=== PATIENT | female | born 1935 | race Caucasian/White ===

== ENCOUNTER 2017-09-15 12:40 | Inpatient (IN) | payer MEDICARE, OTHER ==
[2017-09-15] VITALS (21 sets, daily range): BP systolic 79–105; BP diastolic 27–64
[~2017-09-15] VITALS: Ht 149.9 cm; Wt 66.3 kg
[~2017-09-15 12:40] MED LIST: ALDACTONE 25MG25 MG PO; ALLOPURINOL100 M1 PO; AMIODARONE 200200 MG PO; COREG25 MG PO; FERROUS SULFAT325 M2 PO; FOLIC ACID 1MG T1 MG PO; FUROSEMIDE 20MG20 MG PO; GABAPENTIN100 M2 PO; LEVOTHYROXIN0.112 M1 PO; LIPITOR10 MG PO; METOLAZONE 2.52.5 MG PO; VITAMIN D400 I1 PO; WARFARIN SODIUM1 MG PO
[2017-09-15] MEDS ORDERED: TOPROL XL 100M100 MG PO (14:26)
[2017-09-15] MEDS ORDERED: LANOXIN0.125 MG PO (14:27)
[2017-09-15] MEDS ORDERED: PRAMIPEXOLE D0.25 MG NG (14:31)
--- NOTE | 2017-09-15 14:34 | ACUTE CARE PROGRESS NOTE (QUA) ---
Progress Notes Subjective Date 09/15/17 Time 1417 Note Admitted from [facility]. Was found on the floor after a fall. Was on the floor for greater than an hour. Dehydrated and c/o pain in back and left leg particularly. Left leg with edema and eccymosis. Hx of chronic A-fib, osteoporosis, renal insufficiency. Assessment/Plan Problem List 1. Fall with injury 2. Dehydration 3. Atrial fibrillation 4. Osteoporosis 5. Left leg pain 6. Anticoagulant long-term use 7. Cardiomyopathy 8. Renal insufficiency 9. Anemia Patient condition Guarded Plan: see orders. R/o hip fx, R/o compression fx spine. This inpt stay is expected to cross 2 MNs from start of care Yes at 1435
--- NOTE | 2017-09-15 14:34 | ACUTE CARE PROGRESS NOTE (QUA) ---
Progress Notes Subjective Date 09/15/17 Time 1417 Note Admitted from [facility]. Was found on the floor after a fall. Was on the floor for greater than an hour. Dehydrated and c/o pain in back and left leg particularly. Left leg with edema and eccymosis. Hx of chronic A-fib, osteoporosis, renal insufficiency. Assessment/Plan Problem List 1. Fall with injury 2. Dehydration 3. Atrial fibrillation 4. Osteoporosis 5. Left leg pain 6. Anticoagulant long-term use 7. Cardiomyopathy 8. Renal insufficiency 9. Anemia Patient condition Guarded Plan: see orders. R/o hip fx, R/o compression fx spine. This inpt stay is expected to cross 2 MNs from start of care Yes at 1432
[2017-09-15 14:51] LABS: LYMPH # 0.8 K/mm3 (0.7-4.5); LYMPH % 6.3 % (10-50.0)
[2017-09-15 14:54] LABS: HEMOGLOBIN 6.4 g/dL (12.2-16.2)
[2017-09-15 15:29] LABS: NEUTROPHILS 85 % (42-76)
[2017-09-15] MEDS ORDERED: SPIRONOLACTONE25 MG NG (16:50)
[2017-09-15] MEDS ORDERED: LEVOTHYROXINE0.1 M1 PO (16:50)
[2017-09-15] MEDS ORDERED: TYLENOL WITH CO1 TA1 PO (16:51)
[2017-09-15] MEDS ORDERED: LOMOTIL 0.025 M1 TAB PO (16:51)
[2017-09-15] MEDS ORDERED: NITROGLYCERIN0.4 MG SL (16:51)
[2017-09-15] MEDS ORDERED: VITAMIN D1000 IU PO (16:51)
[2017-09-15] MEDS ORDERED: METOPROLOL SUCC50 M4 PO (16:52)
[2017-09-15] MEDS ORDERED: METOLAZONE 2.52.5 MG PO (16:52)
[2017-09-15] MEDS ORDERED: GABAPENTIN 100100 MG PO (16:53)
[2017-09-15 16:54] LABS: ABO BLOOD TYPE O; ANTIHUMAN GLOB CROSSMATCH COMPAT; RH BLOOD TYPE POSITIVE
[2017-09-15 16:55] LABS: ANTIHUMAN GLOB CROSSMATCH COMPAT
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
[2017-09-15] MEDS ORDERED: GABAPENTIN100 M1 PO (17:18)
--- OUTSIDE RECORDS SUMMARY | 2017-09-15 17:26 | External Medical Summary Rpt | CCD ---
Demographics Preferred Language Niuean Marital Status Unknown Cheondoism Affiliation Unknown Race Unknown Ethnic Group Unknown Author Author , BEATRIZ DUTTA Address Unknown Phone [email or web address] Immunization Name Date Rout CVX Reac Dose Comm Prov Is Faci e tion ent ider Refu lity Give sed n Td 03-0 9 999 Hist H196 No H196 (jen 8-19 oric lt), 97 al Info adso rmat rbed ion - Sour ce Unsp ecif ied
--- OUTSIDE RECORDS SUMMARY | 2017-09-15 17:26 | External Medical Summary Rpt | CCD ---
Author Author , TRA DUTTA Address Unknown Phone [email or web address] Purpose Continuity of Care Document - 04-19-2017 through 2016 Results Labs Lab Lab Date Result Refere Interp Status Commen Order Detail nces retati t Range on Urinalysis dipstick W Reflex Microscopic panel in Urine (04-19-2017 12:04) Appeara CLOUDY CLEAR complet nce of 017 ed Urine 12:04 Bacteri 2+ O complet a 017 ed [Presen 12:04 ce] in Urine sedimen t by Light microsc opy Bilirub NEGATIV NEG complet in 017 E ed [Presen 12:04 ce] in Urine by Test strip Erythro 3+ NEG Abnorma complet cytes 017 l ed [Presen 12:04 ce] in Urine Color YELLOW YELLOW complet of 017 ed Urine 12:04 Ketones NEGATIV NEG complet 017 E ed [Presen 12:04 ce] in Urine by Automat ed test strip Mucus 2+ NEG Abnorma complet [Presen 017 l ed ce] in 12:04 Urine sedimen t by Light microsc opy Nitrite NEGATIV NEG complet 017 E ed [Presen 12:04 ce] in Urine by Test strip Erythro 20-50 0 complet cytes 017 ed [Presen 12:04 ce] in Urine sedimen t by Light microsc opy Epithel 04-19- 3-5 0#/hp complet ial 017 f - ed cells.s 12:04 5#/hp quamous f [Presen ce] in Urine sedimen t by Microsc opy high power field Urobili 0.2 NEG complet nogen 017 ed [Presen 12:04 ce] in Urine by Test strip Leukocy 05-31-2 50-100 O complet carrie 017 wbc/hpf ed [#/volu 12:04 me] in Urine
--- OUTSIDE RECORDS SUMMARY | 2017-09-15 17:26 | External Medical Summary Rpt | CCD ---
Author Author [employer] Address Unknown Phone Unavailable Purpose Continuity of Care Document - through 2016
--- OUTSIDE RECORDS SUMMARY | 2017-09-15 17:26 | External Medical Summary Rpt | CCD ---
Author Author , TRA DUTTA Address Unknown Phone Purpose Continuity of Care Document - 04-19-2017 [...]
--- OUTSIDE RECORDS SUMMARY | 2017-09-15 17:26 | External Medical Summary Rpt | CCD ---
Demographics Preferred Language Liberian Marital Status Unknown Nondenominational Affiliation Unknown Race Unknown Ethnic Group Unknown Author Author , BEATRIZ DUTTA Address Unknown Phone [email or web address] Immunization Name Date Rout CVX Reac Dose Comm Prov Is Faci e tion ent ider Refu lity Give sed n Td 03-0 9 999 Hist H196 No H196 (jen 8-19 oric lt), 97 al Info adso rmat rbed ion - Sour ce Unsp ecif ied
--- OUTSIDE RECORDS SUMMARY | 2017-09-15 17:26 | External Medical Summary Rpt ---
Author Author TRA Salinas, [employer] Organization [employer] Address Unknown Phone Unavailable Results Urinalysis dipstick W Reflex Microscopic panel in Urine Observa Value Referen Units Interpr Notes Date tion ce etation Range Appeara CLOUDY CLEAR No No No April 19 nce of informa informa informa 2017 Urine tion in tion in tion in 12:04 source source source PM data data data Bacteri 2+ O No No No April 19 a informa informa informa 2016 [Presen tion in tion in tion in 12:04 ce] in source source source PM Urine data data data sedimen t by Light microsc opy Bilirub NEGATIV NEG No No No April 19 in E informa informa informa 2016 [Presen tion in tion in tion in 12:04 ce] in source source source PM Urine data data data by Test strip Erythro 3+ NEG No Abnorma No April 19 cytes informa l informa 2016 [Presen tion in tion in 12:04 ce] in source source PM Urine data data Color YELLOW YELLOW No No No April 19 of informa informa informa 2017 Urine tion in tion in tion in 12:04 source source source PM data data data Glucose NEG No No No April 19 [Mass/vol informati informati informati 2017 ume] in on in on in on in 12:04 PM Urine by source source source Test data data data strip Ketones NEGATIV NEG mg/dL No No April 19 E informa informa 2016 [Presen tion in tion in 12:04 ce] in source source PM Urine data data by Automat ed test strip Mucus 2+ NEG No Abnorma No April 19 [Presen informa l informa 2016 ce] in tion in tion in 12:04 Urine source source PM sedimen data data t by Light microsc opy Nitrite NEGATIV NEG No No No April 19 E informa informa informa 2016 [Presen tion in tion in tion in 12:04 ce] in source source source PM Urine data data data by Test strip pH of 5.0 - 8.5 No Normal No April 19 Urine informati informati 2017 on in on in 12:04 PM source source data data Protein NEG mg/dL High No April 19 [Mass/vol informati 2017 ume] in on in 12:04 PM Urine by source Automated data test strip Erythro 20-50 0 rbc/hpf No No April 19 cytes informa informa 2017 [Presen tion in tion in 12:04 ce] in source source PM Urine data data sedimen t by Light microsc opy Specific 1.005 - No Normal No April 19 gravity 1.030 informati informati 2016 of Urine on in on in 12:04 PM source source data data Epithel 3-5 0 - 5 #/hpf No No April 19 ial informa informa 2017 cells.s tion in tion in 12:04 quamous source source PM data data [Presen ce] in Urine sedimen t by Microsc opy high power field Urobili 0.2 NEG E.U./dL No No April 19 nogen informa informa 2017 [Presen tion in tion in 12:04 ce] in source source PM Urine data data by Test strip Leukocy [50 O wbc/hpf No No April 19 carrie wbc/hpf informa informa 2016 [#/volu ; 100 tion in tion in 12:04 me] in wbc/hpf source source PM Urine ] data data Renal function 2000 panel in Serum or Plasma Observa Value Referen Units Interpr Notes Date tion ce etation Range Albumin 3.4 - 5.0 gm/dL Normal No April 19 [Mass/vol informati 2017 ume] in on in 12:04 PM Serum or source Plasma data Urea 7 - 18 mg/dL High No April 19 nitrogen informati 2016 [Mass/vol on in 12:04 PM ume] in source Serum or data Plasma Calcium 8.5 - mg/dL Normal No April 19 [Mass/vol 10.1 informati 2016 ume] in on in 12:04 PM Serum or source Plasma data Chloride 98 - 107 mmoL/L Normal No April 19 [Moles/vo informati 2017 lume] in on in 12:04 PM Serum or source Plasma data Carbon 21.0 - mmoL/L Low No April 19 dioxide, 32.0 2016 total on in 12:04 PM [Moles/vo source lume] in data Serum or Plasma Creatinin 0.55 - mg/dL High No April 19 e 1.02 inform2016 [Mass/vol on in 12:04 PM ume] in source Serum or data Plasma Estimated 59- ML/MIN Low REFERENCE April 19 RANGE: 2017 glomerula >60 12:04 PM r ML/MIN/1. filtratio 73 SQUARE n rate METERSIf (GF this patient is -A merican, then multiply theresult by 1.210. Glucose 74 - 106 mg/dL High No April 19 [Mass/vol informati 2016 ume] in on in 12:04 PM Serum or source Plasma data Potassium 3.5 - 5.1 mmoL/L Normal No April 192016 [Moles/vo on in 12:04 PM lume] in source Serum or data Plasma Sodium 136 - 145 mmoL/L Normal No April 19 [Moles/vo informati 2016 lume] in on in 12:04 PM Serum or source Plasma data Phosphate 2.4 - 4.9 mg/dL Normal No April 192016 [Moles/vo on in 12:04 PM lume] in source Unspecifi data ed specimen CBC W Auto Differential panel in Blood Observa Value Referen Units Interpr Notes Date tion ce etation Range Basophils 0 - 0.2 K/MM3 Normal No April 192016 [#/volume on in 12:04 PM ] in source Blood by data Automated count Basophils 0.1 - 2.0 % Normal No April 192016 leukocyte on in 12:04 PM s in source Blood by data Automated count Eosinophi 0.0 - 0.4 K/mm3 Normal No April 19 ls ati 2016 [#/volume on in 12:04 PM ] in source Blood by data Automated count Eosinophi 0.1 - % Normal No April 19 ls/100 12.0 inform2016 leukocyte on in 12:04 PM s in source Blood by data Automated count Granulocy 1.8 - 7.8 K/mm3 Normal No April 19 carrie 2016 [#/volume on in 12:04 PM ] in source Blood by data Automated count Granulocy 37.0 - % Normal No April 19 carrie/100 80.0 2016 leukocyte on in 12:04 PM s in source Blood by data Automated count Hematocri 37.0 - % Low No April 19 t [Volume 47.0 informati 2016 on in 12:04 PM Fraction] source of Blood data Hemoglobi 12.2 - g/dL Low No April 19 n 16.2 informati 2016 [Mass/vol on in 12:04 PM ume] in source Blood data Lymphocyt 0.7 - 4.5 K/mm3 Normal April 19 es informati 2016 [#/volume on in 12:04 PM ] in source Unspecifi data ed specimen by Automated count Lymphocyt 10 - 50.0 % Normal No April 19 es informati 2016 [#/volume on in 12:04 PM ] in source Unspecifi data ed specimen by Automated count Erythrocy 27 - 31.2 pg High No April 19 te mean 2016 corpuscul on in 12:04 PM ar source hemoglobi data n [Entitic mass] Erythrocy 31.8 - g/dl Normal April 19 te mean 35.4 2016 corpuscul on in 12:04 PM ar source hemoglobi data n concentra tion [Mass/vol ume] by Automated count Erythrocy 82.2 - fl High No April 19 te mean 97.8 informati 2016 corpuscul on in 12:04 PM ar volume source [Entitic data volume] by Automated count Monocytes 0.1 - 1.0 K/mm3 Normal No April 19 inform2016 [#/volume on in 12:04 PM ] in source Blood by data Automated count Monocytes 1.7 - 9.3 % Normal No April 19 /100 2016 leukocyte on in 12:04 PM s in source Blood by data Automated count Platelet 7.4 - fl Low April 19 mean 10.4 inform2016 volume on in 12:04 PM [Entitic source volume] data in Blood by Automated count Platelets 142 - 424 K/mm3 Normal No April 19 inform2016 [#/volume on in 12:04 PM ] in source Blood data Erythrocy 4.2 - 5.4 M/mm3 Low No April 19 carrie informati 2016 [#/volume on in 12:04 PM ] in source Amniotic data fluid Erythrocy 11.5 - % Normal April 19 te 17.5 2016 distribut on in 12:04 PM ion width source [Entitic data volume] by Automated count Leukocyte 4.8 - K/MM3 Normal No April 19 s 10.8 informati 2017 [#/volume on in 12:04 PM ] in source Blood data
--- NOTE | 2017-09-15 18:15 | RADIOLOGY REPORT PS360 ---
CHEST-PORTABLE HISTORY: Weakness and low blood pressure fell at home, dehydrated, possible hip injury ORDERING PHYSICIAN: Luis Bryant MD PATIENT AGE: 82 years COMPARISON: 01/30/2012 FINDINGS: There has been prior median sternotomy with CABG and mitral valve replacement. No evidence of CHF. There is fracture of second from from the top median sternotomy wire. The lungs are clear without infiltrates, suspicious nodules, or pleural effusions. Degenerative changes of the shoulders with severe right subacromial stenosis. IMPRESSION: 1. No acute finding. 2. Prior CABG with MVR
[2017-09-15 22:34] LABS: HEMOGLOBIN 8.4 g/dL (12.2-16.2)
[2017-09-16] VITALS (26 sets, daily range): BP systolic 89–124; BP diastolic 48–78
--- NOTE | 2017-09-16 06:45 | RADIOLOGY REPORT PS360 ---
HIP LT 2-3V W/PELVIS IF PERFOR HISTORY: Fell at home, left leg with edema, discoloration, pain ORDERING PHYSICIAN: Luis Bryant MD PATIENT AGE: 82 years COMPARISON: None FINDINGS: No obvious fracture or dislocation. There is generalized vascular calcification. There is a right femoral decompression screw with bone plate IMPRESSION: No acute finding
--- NOTE | 2017-09-16 06:47 | RADIOLOGY REPORT PS360 ---
THORACIC SPINE AP LAT-2VIEW CLINICAL INDICATION: Back pain following injury fall injury, osteoporosis, pain ORDERING PHYSICIAN: Luis Bryant MD PATIENT AGE: 82 years COMPARISON: None FINDINGS: Thoracolumbar scoliosis convex left. Multilevel degenerative disc disease of the thoracic spine. No obvious fracture or dislocation. No lytic or blastic change. IMPRESSION: Scoliosis with multilevel degenerative disc disease. No obvious acute fracture
--- NOTE | 2017-09-16 06:50 | RADIOLOGY REPORT PS360 ---
EXAM: LUMBAR SPINE-2 TO 3 VIEWS HISTORY: Pain following injury fall injury, osteoporosis, pain COMPARISON: None FINDINGS: Moderate thoracic lumbar scoliosis convex left with multilevel degenerative disc disease No fracture or dislocation. No lytic or blastic change. Degenerative disc disease from L1 S1. Minimal anterolisthesis of L5 on S1 of 4 mm. Facet arthritic changes at multiple levels. IMPRESSION: 1. No acute fracture. 2. Scoliosis with severe multilevel lumbar spondylosis
--- NOTE | 2017-09-16 06:51 | RADIOLOGY REPORT PS360 ---
ANKLE-LT-3 VIEWS HISTORY: Posttraumatic pain fall ORDERING PHYSICIAN: Luis Bryant MD PATIENT AGE: 82 years COMPARISON: None FINDINGS: No fracture or dislocation. No lytic or blastic change. There is normal mineralization.. Mild osteoarthritic changes of the ankle. Generalized vascular calcification. IMPRESSION: Osteoarthritis, no acute finding
--- NOTE | 2017-09-16 06:52 | RADIOLOGY REPORT PS360 ---
FOOT-LT-3 VIEWS HISTORY: Posttraumatic pain fall ORDERING PHYSICIAN: Luis Bryant MD PATIENT AGE: 82 years COMPARISON: None FINDINGS: Moderate hallux valgus. There is an old fracture of the mid shaft of the second metatarsal and distal shaft of the third metatarsal. There is pes planus with osteoarthritic changes of the tarsal bones. No acute fracture or dislocation. There is generalized vascular calcification. IMPRESSION: 1. No acute fracture. 2. Hallux valgus with pes planus and osteoarthritis
[2017-09-16 06:55] LABS: HEMOGLOBIN 7.3 g/dL (12.2-16.2)
[2017-09-16 06:57] LABS: LYMPH # 0.8 K/mm3 (0.7-4.5); LYMPH % 8.4 % (10-50.0)
[2017-09-16 08:47] LABS: ANTIHUMAN GLOB CROSSMATCH COMPAT
[2017-09-16 08:48] LABS: ANTIHUMAN GLOB CROSSMATCH COMPAT
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
--- NOTE | 2017-09-16 08:54 | ACUTE CARE PROGRESS NOTE (QUA) ---
Progress Notes Subjective Date 09/16/17 Time 0833 Note Rested fairly well until early this morning when started complaining of increased pain in left lower leg. Otherwise denies chest pain, SOA, nausea, abdominal pain. Her rectum prolapsed shortly after I reduced it last night. She states this has been a chronic problem for her that she has never mentioned to any doctor. Objective Findings Laboratory Tests 09/16/17 0610: Sodium 131 L, Potassium 4.6, Chloride 100, Carbon Dioxide 11 L, BUN 131 *H, Creatinine 5.2 H, Estimated Creat Clear 7 L, Estimated GFR (MDRD) 8 *L, Glucose 82, Calcium 8.3 L, Total Bilirubin 0.8, AST 49 H, ALT 24, Alkaline Phosphatase 74, Creatine Kinase 599 H, CK-MB (CK-2) Rel Index 1.3, CK and CKMB Interp 7.8 H, Troponin I 0.11 H, Total Protein 5.2 L, Albumin 2.1 L, Globulin 3.1, Albumin/Globulin Ratio 0.7 L, PT 42.8 H, INR 3.91 H, WBC 9.6, RBC 2.06 L, Hgb 7.3 *L, Hct 22.1 *L, MCV 107.3 H, RDW 25.6 *H, Plt Count 41 *L , MPV 10.3, Gran % 87.0 H, Gran # 8.4 H, Lymphocytes % 8.4 L, Monocytes % 4.5 , Eosinophils % 0.1, Basophils % 0.0 L, Lymphocytes # 0.8, Monocytes # 0.4, Eosinophils # 0.0, Basophils # 0.0, PUBS MCHC 33.1, MCH 35.5 H 09/15/17 2216: Hgb 8.4 L, Hct 25.3 L 09/15/17 1950: Misc Test Units BLOOD UNIT RELEASE 09/15/17 1435: TSH 2.40 09/15/17 1435: Creatine Kinase 1285 H, CK-MB (CK-2) Rel Index 1.0, CK and CKMB Interp 12.3 *H, Troponin I 0.19 H, MCH 39.9 H, Misc Test Units BLOOD UNIT RELEASE 09/15/17 1435: Sodium 130 L, Potassium 5.4 H, Chloride 98, Carbon Dioxide 15 L, BUN 144 *H, Creatinine 6.3 H, Estimated Creat Clear 6 L, Estimated GFR (MDRD) 6 *L, Glucose 113 H, Calcium 8.3 L, Total Bilirubin 0.7, AST 71 H, ALT 29, Alkaline Phosphatase 86, Total Protein 5.8 L, Albumin 2.7 L, Globulin 3.1, Albumin/ Globulin Ratio 0.9 L, PT 149.9 H, INR 13.52 H, WBC 13.3 H, RBC 1.60 L, Hgb 6.4 *L, Hct 19.7 *L, MCV 123.1 H, RDW 18.7 H, Plt Count 63 L, MPV 10.1, Gran % 89.8 H, Gran # 11.9 H, Total Counted 100, Lymphocytes % 6.3 L, Monocytes % 3.8, Eosinophils % 0.1, Basophils % 0.1, Neutrophils 85 H, Band Neutrophils 3, Lymphocytes (Manual) 8 L, Lymphocytes # 0.8, Monocytes (Manual) 4, Monocytes # 0.5, Eosinophils # 0.0, Basophils # 0.0, Platelet Estimate MOD DECREASE, Poikilocytosis 1+, Anisocytosis 2+, Macrocytosis 2+, PUBS MCHC 32.4, Antibody Screen NEGATIVE, Miscellaneous Test POSITIVE, Digoxin 2.35 Last VS-Temp:98.2 B/P:96/50 Pulse:92 Resp:18 SaO2:99 ROOM AIR Last weight lbs:122 oz:5 K.480 Method:Bed Scales Exam General appearance: alert, pale, uncomfortable due to pain. Eyes: anicteric ENT: dry mucous membranes Cardiovascular: regular rate & rhythm Respiratory: clear to auscultation ABD: non-distended, soft, no tenderness, few bowel sounds Extremities: marked swelling and ecchymosis of left lower leg and ankle. Xray negative Neuro: alert, oriented Reviewed: medications, vital signs, lab results, radiology report, nursing notes Assessment/Plan Problem List 1. Acute renal failure Assessment/Plan marginally improved 2. Acute blood loss anemia 3. Rhabdomyolysis Assessment/Plan CPK decreased 4. Dehydration 5. Chronic kidney disease (CKD), stage IV (severe) 6. Fall with injury 7. Supratherapeutic INR 8. Left leg pain Assessment/Plan xray negative. Concern for compartment syndrome 9. Anticoagulant long-term use 10. Cardiomyopathy 11. Rectal prolapse 12. Bladder prolapse 13. History of ASCVD 14. Hiatal hernia with gastroesophageal reflux 15. Macrocytic anemia 16. Thrombocytopenia 17. Osteoporosis 18. Intermittent atrial fibrillation Plan: H&H initially improved but has dropped again. May be equilibrating but with hx of fall and prolonged INR intitially, the concern is for possible intra- abdominal bleeding. Will obtain CT abd/pelvis and surgical consult. INR is down to 3.9. Will continue to transfuse. ALso with increasing leg pain, will consult ortho for possible compartment syndrome. Her renal function is marginally improved with fluids. WIll continue to hydrate. Insert Huff to monitor I&Os. This inpt stay is expected to cross 2 MNs from start of care Yes at 1835
--- NOTE | 2017-09-16 10:36 | RADIOLOGY REPORT PS360 ---
CT ABD PELVIS W/O CONTRAST CLINICAL INDICATION: Abdominal pain following an injury/fall, blunt trauma FALL,ANEMIA,SUPRATHEROEUTIC INR; R/O INTRABDOMINAL BLEED ORDERING PHYSICIAN: Luis Bryant MD PATIENT AGE: 82 years COMPARISON: None TECHNIQUE: Axial images obtained with sagittal and coronal reformats. PROCEDURE: Oral Contrast: None IV Contrast: None . FINDINGS: Lung base images show mild cardiomegaly with enlarged left atrium. Trace right pleural effusion. The liver, spleen, and adrenal glands are unremarkable. There is a small hiatal hernia. Gallbladder slightly distended with small stones. The pancreas has an unremarkable appearance. There is moderate bilateral hydronephrosis and hydroureter. Urinary bladder is slightly thickened with minimal stranding of the adjacent fat not cystic. No evidence of intestinal obstruction or free air. No focal inflammatory change apparent There is rectal and vaginal prolapse. There is mild thickening of the perirectal and perineal fascia. The hydronephrosis may be related to the rectal and vaginal prolapse as the ureters are dilated to the level of the prolapse. There is a right hip and with bony sideplate. Moderate lumbar scoliosis convex left. No acute fractures are evident. IMPRESSION: 1. Moderate bilateral hydronephrosis and hydroureter. 2. Rectal and vaginal prolapse. The pelvic floor is involved in the prolapse includes the distal ureters and may be the source of the hydronephrosis/ureteral obstruction. 3. No hemoperitoneum. No evidence of retrograde. No hemorrhage. No obvious hepatic or splenic hematomas. Study was performed without contrast due to patient's renal status. 4. Cholelithiasis
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
[2017-09-16] MEDS ORDERED: GABAPENTIN100 M1 PO (11:40)
--- NOTE | 2017-09-16 11:54 | PHARMACY CLINIC NOTE ---
Patient Demographics Patient Demographics Admission date: 09/15/17 Date: 09/16/17 Time: 1152 Allergies Coded Allergies: No Known Drug Allergies (04/27/16) cefdinir (09/15/17) HEIGHT- FT: 4 IN: 11.00 K.480 VTE General Information Labs: Laboratory Tests 09/16 09/15 09/15 0610 2216 1435 Coagulation PT (9.4 - 11.8 SECONDS) 42.8 H 149.9 H INR (0.9 - 1.1) 3.91 H 13.52 H Hematology Hgb (12.2 - 16.2 g/dL) 7.3 *L 8.4 L 6.4 *L Hct (37.0 - 47.0 %) 22.1 *L 25.3 L 19.7 *L Plt Count (142 - 424 K/mm3) 41 *L 63 L Disclaimer The following section includes nursing documentation that has been pulled in for pharmacy review. Patient's VTE score: 4 Patient's VTE Risk: LOW RISK Clinical trial participant? No VTE prophylaxis NQF [id number] VTE prophylaxis ordered? No (INR >13 ON ADMISSION NOT INDIC) If no, why? Tx not indicated at 1154
--- NOTE | 2017-09-16 12:41 | RADIOLOGY REPORT PS360 ---
KNEE-3 VIEWS-LT HISTORY: Posterior mag pain FALL ORDERING PHYSICIAN: Luis Bryant MD PATIENT AGE: 82 years COMPARISON: None FINDINGS: Severe tricompartmental osteoarthritic changes are present greatest at the medial compartment. No obvious fracture or dislocation. No lytic or blastic change. IMPRESSION: 1. Osteoarthritis. 2. No acute fracture
--- NOTE | 2017-09-16 12:42 | RADIOLOGY REPORT PS360 ---
LOWER LEG-LT HISTORY: Posttraumatic pain FALL ORDERING PHYSICIAN: Luis Bryant MD PATIENT AGE: 82 years COMPARISON: None FINDINGS: No fracture or dislocation. No lytic or blastic change. There is normal mineralization. Osteoarthritic changes are present at the knee. Generalized vascular calcification IMPRESSION: No acute finding
[2017-09-16 15:03] LABS: URINE BLOOD 3+ (NEG)
[2017-09-16 15:06] LABS: URINE BILIRUBIN - DIPSTICK 2+ (NEG)
--- NOTE | 2017-09-16 16:11 | RADIOLOGY REPORT PS360 ---
CT EXT.LOWER-LT-W/O CONTRAST INDICATION: PAIN SWELLING. FELL YESTERDAY=TIBIAL PLATEAU ORDERING PHYSICIAN: Luis Bryant MD PATIENT AGE: 82 years COMPARISON: Radiograph of 09/16/2017. TECHNIQUE: Axial images are obtained without contrast. Sagittal and coronal reformatted images are reviewed as well. FINDINGS: No obvious fracture or dislocation. There are severe osteoarthritic changes. There is mild inferior angulation of the medial tibial plateau however, no definite fracture is evident likely secondary to the long-standing osteoarthritic change. There is decrease in the joint space with osteosclerosis and prominent osteophytes. Chondrocalcinosis is also noted. There is a small knee joint usually and. Diffuse vascular calcification present. IMPRESSION: 1. No acute fracture. 2. Osteoarthritis with chondrocalcinosis and knee joint effusion. No evidence of hemarthrosis
[2017-09-16 16:25] LABS: HEMOGLOBIN 9.3 g/dL (12.2-16.2)
--- NOTE | 2017-09-16 16:28 | ACUTE CARE PROGRESS NOTE ---
Progress note Date: 09/16/17 Assessment: I reviewed the patient on the floor following the x-rays of her left leg and left knee and the CT scan of her left knee. Family is with the patient in the room. Patient says she has no pain in her leg now unless somebody touches it. She is not complaining of any distal tingling or numbness. According to the nursing staff, she received 1 tablet of Lortab few hours ago and did not need any IV pain medication since morning. She is not complaining of any distal tingling or numbness. Examination of her left lower extremity, there is extensive ecchymosis over the leg, ankle and foot. There is a small ulceration over the vanessa with serous discharge. There is pitting edema over the left leg, ankle and foot. The leg is warm and tender to touch. There is no induration. She has good range of active and passive toe, foot and ankle movements. No stretch pain. Distal sensation is intact to light touch. Dorsalis pedis and posterior tibial pulses not palpable in both legs. Capillary refill sluggish bilaterally. Checked with the pulse oximetry on her toes of both feet- Left side is 99% and the right side is 98%. X-rays of her left leg and left knee reviewed along with the radiologist's report. The x-rays do not show any acute bony injury. There are severe advanced tricompartmental degenerative changes in her left knee. CT scan of her left knee reviewed- again very advanced degenerative changes noted in all 3 compartments. No acute fracture, hemarthrosis or hematoma noted. Impression: 1. Acute renal failure 2. Acute blood loss anemia 3. Rhabdomyolysis 4. Dehydration 5. Chronic kidney disease (CKD), stage IV (severe) 6. Fall with injury 7. Supratherapeutic INR 8. Left leg pain 9. Anticoagulant long-term use 10. Cardiomyopathy 11. Rectal prolapse 12. Bladder prolapse 13. History of ASCVD 14. Hiatal hernia with gastroesophageal reflux 15. Macrocytic anemia 16. Thrombocytopenia 17. Osteoporosis 18. Intermittent atrial fibrillation 19. Cellulitis of leg, left 20. Degenerative arthritis of left knee Plan: Reviewed the clinical and imaging findings with the patient and her family. Continue conservative management as previously recommended. Recommend adding IV antibiotics, preferably vancomycin if medically appropriate, after consulting with Dr. Hinton. Continue as needed pain medication. Continue observation for development of compartment syndrome.
[2017-09-16 21:35] LABS: HEMOGLOBIN 9.3 g/dL (12.2-16.2)
[2017-09-17] VITALS (7 sets, daily range): BP systolic 107–118; BP diastolic 48–71
[2017-09-17 06:48] LABS: HEMOGLOBIN 9.3 g/dL (12.2-16.2)
[2017-09-17 06:51] LABS: LYMPH # 0.7 K/mm3 (0.7-4.5)
--- NOTE | 2017-09-17 08:24 | ACUTE CARE PROGRESS NOTE (QUA) ---
Progress Notes Subjective Date 09/17/17 Time 0824 Note Staff notes she seemed weaker and more confused during the night. VSS have been stable. Noted with irregularity on monitor suspicious for Vtach but nurse was in room at time the monitor alarmed and there was no changes clinically so ? artifact. Still with pain in her left leg mostly with movement. Also c/o pain in her heels and note she takes gabapentin at home. Objective Findings Laboratory Tests 09/17/17 0615: Sodium 135 L, Potassium 4.5, Chloride 105, Carbon Dioxide 14 L, BUN 110 *H, Creatinine 3.8 H, Estimated Creat Clear 11 L, Estimated GFR (MDRD) 11 *L, Glucose 89, Calcium 8.3 L, Creatine Kinase 215 H, PT 16.0 H, INR 1.48 H, WBC 7.3, RBC 2.86 L, Hgb 9.3 L, Hct 28.8 L, MCV 100.6 H, RDW 26.7 *H, Plt Count 31 *L, MPV 11.3 H, Gran % 83.2 H, Gran # 6.0, Lymphocytes % 10.0, Monocytes % 6.3, Eosinophils % 0.3, Basophils % 0.1, Lymphocytes # 0.7, Monocytes # 0.5, Eosinophils # 0.0, Basophils # 0.0, PUBS MCHC 32.3, MCH 32.4 H 09/16/17 2125: Hgb 9.3 L, Hct 28.2 L 09/16/17 1558: Hgb 9.3 L, Hct 27.8 L 09/16/17 1450: Urine Color OTHER, Urine Appearance CLOUDY, Urine pH 8.0, Ur Specific [place] 1.015, Urine Protein 2+ H, Urine Ketones TRACE H, Urine Blood 3+ H, Urine Nitrate POSITIVE H, Urine Bilirubin 2+ H, Urine Urobilinogen 1.0, Ur Leukocyte Esterase 2+ H, Urine RBC 10-20, Urine WBC 10-20, Ur Squamous Epith Cells NONE, Urine Bacteria 1+, Urine Glucose NEGATIVE 09/16/17 1257: Misc Test Units BLOOD UNIT RELEASE 09/16/17 0955: Misc Test Units BLOOD UNIT RELEASE Microbiology 09/16 1450 URINE CATH: Urine Culture - RES Last VS-Temp:98.6 B/P:111/67 Pulse:99 Resp:22 SaO2:96 ROOM AIR Last weight lbs:129 oz:2 K.57 Method:Bed Scales Exam General appearance: sleeping but arouses and answers questions. Color is better. Cardiovascular: regular rate & rhythm Respiratory: clear to auscultation ABD: non-distended, soft, mild low abdominal tenderness. Genitourinary: Huff in place. Improved UOP and not as dark Extremities: left lower with improvement in swelling. Remains tender. Reviewed: medications, vital signs, lab results, consult note, nursing notes Assessment/Plan Problem List 1. Acute renal failure 2. Acute blood loss anemia 3. Rhabdomyolysis 4. Dehydration 5. Chronic kidney disease (CKD), stage IV (severe) 6. Fall with injury 7. Supratherapeutic INR Status: Resolved 8. Left leg pain 9. Anticoagulant long-term use 10. Cardiomyopathy 11. Rectal prolapse 12. Bladder prolapse 13. History of ASCVD 14. Hiatal hernia with gastroesophageal reflux 15. Macrocytic anemia 16. Thrombocytopenia 17. Osteoporosis 18. Intermittent atrial fibrillation 19. UTI (urinary tract infection) Patient condition Guarded Plan: H&H is stable. INR in therapeutic range now. UOP and renal function improving. Will decrease IVF. Resume Digoxin. Resume Gabapentin. Start Levaqiom pending urine culture. Noted with some alteration in mental status ? pain meds vs encephalopathy. This inpt stay is expected to cross 2 MNs from start of care Yes at 0854
[2017-09-17 08:36] LABS: Iron 23 ug/dL (27-139); Iron Saturation 10 % (15-55); UIBC 207 ug/dL (118-369)
--- NOTE | 2017-09-17 09:00 | CONSULT NOTE ---
Pharmacokinetic Consult Date of consult: 09/17/17 Time of consult: 857 Referring provider: DR. CONTRERAS Reason for consult: VANCOMYCIN DOSING Allergies: Coded Allergies: No Known Drug Allergies (04/27/16) cefdinir (09/15/17) Home Medications: Reported Medications FOLIC ACID (Folic Acid) 1 MG PO DAILY Ferrous Sulfate (Ferrous Sulfate 325MG) 325 MG PO TID Atorvastatin Calcium (Lipitor 10MG) 10 MG PO QHS ALLOPURINOL (Allopurinol 100MG) 100 MG PO DAILY WARFARIN SOD (Warfarin 1MG) 2.5 MG PO DAILY DIGOXIN (Digox) 0.125 MG PO DAILY Levothyroxine Sodium (Levothyroxine 0.1MG) 0.1 MG PO DAILY Spironolactone (Spironolactone) 25 MG NG BID ACETAMINOPHEN WITH CODEINE (Tylenol With Codeine #3 Tablet) 1 TAB PO QHS CHOLECALCIFEROL (VITAMIN D3) (Vitamin D3) 1,000 IUNITS PO DAILY Metolazone (Metolazone 2.5MG) 2.5 MG PO BID Gabapentin (Gabapentin 100MG) 100 MG PO DAILY Gabapentin (Gabapentin 100MG) 200 MG PO QHS DIPHENOXYLATE HCL/ATROPINE (Lomotil 2.5-0.025 MG Tablet) 1 TAB PO QIDP PRN DIARRHEA NITROGLYCERIN (Nitrostat) 0.4 MG SL [id number] PRN CHEST PAIN PRAMIPEXOLE DIHYDROCHLORIDE MO (Pramipexole) 0.5 MG NG QHS Height (feet): 4 Height (inches): 11.00 Medical History: CAD? Yes Angina: Yes [place]: Yes Hypertension? Yes Hyperlipidemia? No CHF? Yes DVT? No PE? No COPD? No Asthma? No Anemia? Yes GERD? No Hernia? No Thyroid Problems? Yes Hypothyroidism? Yes CVA? No Seizures? No Diabetes? No UTI? No Stones? No GB Disease: No Hepatitis? No Cataracts? No Glaucoma? No MRSA? No TB? No Cancer? No More? No Additional hx: 1. Paroxysmal afib 2. Right Hip fx 3. Osteoporosis both hips Labs: Laboratory Tests 09/17/17 0615: Sodium 135 L, Potassium 4.5, Chloride 105, Carbon Dioxide 14 L, BUN 110 *H, Creatinine 3.8 H, Estimated Creat Clear 11 L, Estimated GFR (MDRD) 11 *L, Glucose 89, Calcium 8.3 L, Creatine Kinase 215 H, PT 16.0 H, INR 1.48 H, WBC 7.3, RBC 2.86 L, Hgb 9.3 L, Hct 28.8 L, MCV 100.6 H, RDW 26.7 *H, Plt Count 31 *L, MPV 11.3 H, Gran % 83.2 H, Gran # 6.0, Lymphocytes % 10.0, Monocytes % 6.3, Eosinophils % 0.3, Basophils % 0.1, Lymphocytes # 0.7, Monocytes # 0.5, Eosinophils # 0.0, Basophils # 0.0, PUBS MCHC 32.3, MCH 32.4 H 09/16/17 2125: Hgb 9.3 L, Hct 28.2 L 09/16/17 1558: Hgb 9.3 L, Hct 27.8 L 09/16/17 1450: Urine Color OTHER, Urine Appearance CLOUDY, Urine pH 8.0, Ur Specific [place] 1.015, Urine Protein 2+ H, Urine Ketones TRACE H, Urine Blood 3+ H, Urine Nitrate POSITIVE H, Urine Bilirubin 2+ H, Urine Urobilinogen 1.0, Ur Leukocyte Esterase 2+ H, Urine RBC 10-20, Urine WBC 10-20, Ur Squamous Epith Cells NONE, Urine Bacteria 1+, Urine Glucose NEGATIVE 09/16/17 1257: [facility] Test Units BLOOD UNIT RELEASE 09/16/17 0955: [facility] [place] Test Units BLOOD UNIT RELEASE Microbiology 09/16 1450 URINE CATH: Urine Culture - RES Problem List: 1. Cellulitis of leg, left Plan: BASED ON PATIENT'S FACTORS, RECOMMEND STARTING WITH VANCOMYCIN 1 GM Q72H AT THIS TIME. PATIENT'S RENAL FUNCTION WILL BE MONITORED AND VANCOMYCIN TROUGH LEVEL PRIOR TO 2ND DOSE WILL BE CHECK TO DETERMINE CLEARANCE DUE TO POOR RENAL FUNCTION. PHARMACY WILL FOLLOW DAILY AND ADJUST APPROPRIATE. GEORGE PRICED at 0900
--- NOTE | 2017-09-17 09:00 | CONSULT NOTE ---
Pharmacokinetic Consult Date of consult: 09/17/17 Time of consult: 857 Referring provider: DR. CONTRERAS Reason for consult: VANCOMYCIN DOSING Allergies: Coded Allergies: No Known Drug Allergies (04/27/16) cefdinir (09/15/17) Home Medications: Reported Medications FOLIC ACID (Folic Acid) 1 MG PO DAILY Ferrous Sulfate (Ferrous Sulfate 325MG) 325 MG PO TID Atorvastatin Calcium (Lipitor 10MG) 10 MG PO QHS ALLOPURINOL (Allopurinol 100MG) 100 MG PO DAILY WARFARIN SOD (Warfarin 1MG) 2.5 MG PO DAILY DIGOXIN (Digox) 0.125 MG PO DAILY Levothyroxine Sodium (Levothyroxine 0.1MG) 0.1 MG PO DAILY Spironolactone (Spironolactone) 25 MG NG BID ACETAMINOPHEN WITH CODEINE (Tylenol With Codeine #3 Tablet) 1 TAB PO QHS CHOLECALCIFEROL (VITAMIN D3) (Vitamin D3) 1,000 IUNITS PO DAILY Metolazone (Metolazone 2.5MG) 2.5 MG PO BID Gabapentin (Gabapentin 100MG) 100 MG PO DAILY Gabapentin (Gabapentin 100MG) 200 MG PO QHS DIPHENOXYLATE HCL/ATROPINE (Lomotil 2.5-0.025 MG Tablet) 1 TAB PO QIDP PRN DIARRHEA NITROGLYCERIN (Nitrostat) 0.4 MG SL [id number] PRN CHEST PAIN PRAMIPEXOLE DIHYDROCHLORIDE MO (Pramipexole) 0.5 MG NG QHS Height (feet): 4 Height (inches): 11.00 Medical History: CAD? Yes Angina: Yes [place]: Yes Hypertension? Yes Hyperlipidemia? No CHF? Yes DVT? No PE? No COPD? No Asthma? No Anemia? Yes GERD? No Hernia? No Thyroid Problems? Yes Hypothyroidism? Yes CVA? No Seizures? No Diabetes? No UTI? No Stones? No GB Disease: No Hepatitis? No Cataracts? No Glaucoma? No MRSA? No TB? No Cancer? No More? No Additional hx: 1. Paroxysmal afib 2. Right Hip fx 3. Osteoporosis both hips Labs: Laboratory Tests 09/17/17 0615: Sodium 135 L, Potassium 4.5, Chloride 105, Carbon Dioxide 14 L, BUN 110 *H, Creatinine 3.8 H, Estimated Creat Clear 11 L, Estimated GFR (MDRD) 11 *L, Glucose 89, Calcium 8.3 L, Creatine Kinase 215 H, PT 16.0 H, INR 1.48 H, WBC 7.3, RBC 2.86 L, Hgb 9.3 L, Hct 28.8 L, MCV 100.6 H, RDW 26.7 *H, Plt Count 31 *L, MPV 11.3 H, Gran % 83.2 H, Gran # 6.0, Lymphocytes % 10.0, Monocytes % 6.3, Eosinophils % 0.3, Basophils % 0.1, Lymphocytes # 0.7, Monocytes # 0.5, Eosinophils # 0.0, Basophils # 0.0, PUBS MCHC 32.3, MCH 32.4 H 09/16/17 2125: Hgb 9.3 L, Hct 28.2 L 09/16/17 1558: Hgb 9.3 L, Hct 27.8 L 09/16/17 1450: Urine Color OTHER, Urine Appearance CLOUDY, Urine pH 8.0, Ur Specific [place] 1.015, Urine Protein 2+ H, Urine Ketones TRACE H, Urine Blood 3+ H, Urine Nitrate POSITIVE H, Urine Bilirubin 2+ H, Urine Urobilinogen 1.0, Ur Leukocyte Esterase 2+ H, Urine RBC 10-20, Urine WBC 10-20, Ur Squamous Epith Cells NONE, Urine Bacteria 1+, Urine Glucose NEGATIVE 09/16/17 1257: [facility] Test Units BLOOD UNIT RELEASE 09/16/17 0955: [facility] [place] Test Units BLOOD UNIT RELEASE Microbiology 09/16 1450 URINE CATH: Urine Culture - RES Problem List: 1. Cellulitis of leg, left Plan: BASED ON PATIENT'S FACTORS, RECOMMEND STARTING WITH VANCOMYCIN 1 GM Q72H AT THIS TIME. PATIENT'S RENAL FUNCTION WILL BE MONITORED AND VANCOMYCIN TROUGH LEVEL PRIOR TO 2ND DOSE WILL BE CHECK TO DETERMINE CLEARANCE DUE TO POOR RENAL FUNCTION. PHARMACY WILL FOLLOW DAILY AND ADJUST APPROPRIATE. GEORGE PRICED at 0900
--- NOTE | 2017-09-17 09:25 | SURGEON PROGRESS NOTE ---
Subjective data Subjective data: Somewhat slow to respond this AM. Objective data Vitals,I&O,and Labs: Vital signs, intake and output,and available lab data for the last 24 hours is as noted below. Vital Signs Date Time Temp Pulse Resp B/P Pulse O2 O2 Flow FiO2 Ox Delivery Rate 09/17 0813 98.6 99 22 111/67 96 ROOM AIR 09/17 0358 97.5 77 18 110/65 97 ROOM AIR 09/17 0005 97.5 75 18 108/64 96 ROOM AIR 09/16 2146 97.6 56 18 112/68 98 ROOM AIR 09/16 2030 97.5 69 16 123/78 98 09/16 1936 97.5 69 16 123/78 98 ROOM AIR 09/16 1720 16 09/16 1600 97.7 74 16 97/56 09/16 1500 97.6 82 16 106/68 09/16 1440 18 09/16 1410 97.9 80 16 89/48 09/16 1355 97.4 88 16 104/51 09/16 1340 97.3 72 18 118/53 09/16 1325 97.5 76 16 123/50 09/16 1320 97.8 84 16 99/53 09/16 1315 97.6 78 16 109/52 09/16 1310 97.4 81 16 113/59 09/16 1240 97.5 65 16 105/69 09/16 1140 98.0 78 16 112/53 09/16 1105 98.0 84 16 98/53 09/16 1050 98.3 79 16 106/57 09/16 1035 97.7 78 18 108/59 09/16 1020 97.7 90 16 113/66 09/16 1015 97.9 94 16 120/73 09/16 1010 98.1 69 16 106/70 09/16 1005 98.0 76 16 124/69 09/16 1500 09/16 2300 09/17 0700 Intake Total 700 Output Total 200 2600 Balance 500 -2600 Intake, IV 700 Output, Urine 200 2600 Patient 58.57 kg Weight Laboratory Tests Test Result Date Time Chemistry Sodium (mmoL/L) 135 09/17 06 Potassium (mmoL/L) 4.5 09/17 06 Chloride (mmoL/L) 105 09/17 06 Carbon Dioxide (mmoL/L) 14 09/17 0615 BUN (mg/dL) 110 09/17 615 Creatinine (mg/dL) 3.8 09/17 615 Estimated Creat Clear (ML/MIN) 11 09/17 615 Estimated GFR (MDRD) (ML/MIN) 11 09/17 615 Glucose (mg/dL) 89 09/17 615 Calcium (mg/dL) 8.3 09/17 615 Total Bilirubin (mg/dL) 0.8 09/16 610 AST (U/L) 49 09/16 610 ALT (U/L) 24 09/16 610 Alkaline Phosphatase (U/L) 74 09/16 610 Creatine Kinase (U/L) 215 09/17 615 CK-MB (CK-2) Rel Index (U/L) 1.3 09/16 610 CK and CKMB Interp (ng/mL) 7.8 09/16 610 Troponin I (ng/mL) 0.11 09/16 610 Total Protein (gm/dL) 5.2 09/16 610 Albumin (gm/dL) 2.1 09/16 610 Globulin (gm/dL) 3.1 09/16 610 Albumin/Globulin Ratio 0.7 09/16 610 TSH (uIU/ml) 2.40 09/15 1435 Coagulation PT (SECONDS) 16.0 09/17 615 INR 1.48 09/17 615 Hematology WBC (K/MM3) 7.3 09/17 615 RBC (M/mm3) 2.86 09/17 615 Hgb (g/dL) 9.3 09/17 615 Hct (%) 28.8 09/17 615 MCV (fl) 100.6 09/17 615 RDW (%) 26.7 09/17 615 Plt Count (K/mm3) 31 09/17 615 MPV (fl) 11.3 09/17 615 Gran % (%) 83.2 09/17 615 Gran # (K/mm3) 6.0 09/17 615 Total Counted (#CELLS) 100 09/15 1435 Lymphocytes % (%) 10.0 09/17 615 Monocytes % (%) 6.3 09/17 615 Eosinophils % (%) 0.3 09/17 615 Basophils % (%) 0.1 09/17 615 Neutrophils (%) 85 09/15 143 Band Neutrophils (%) 3 09/15 1435 Lymphocytes (Manual) (%) 8 09/15 1435 Lymphocytes # (K/mm3) 0.7 09/17 615 Monocytes (Manual) (%) 4 09/15 1435 Monocytes # (K/mm3) 0.5 09/17 615 Eosinophils # (K/mm3) 0.0 09/17 615 Basophils # (K/MM3) 0.0 09/17 615 Platelet Estimate MOD DECREASE 09/15 1435 Poikilocytosis 1+ 09/15 1435 Anisocytosis 2+ 09/15 1435 Macrocytosis 2+ 09/15 1435 PUBS MCHC (g/dl) 32.3 09/17 615 Immunology Antibody Screen NEGATIVE 09/15 1435 MCH (pg) 32.4 09/17 615 Miscellaneous Miscellaneous Test POSITIVE 09/15 1435 Misc Test Units BLOOD UNIT RELEASE 09/16 1257 Toxicology Digoxin (ng/mL) 2.35 09/15 1435 Urines Urine Color OTHER 09/16 1450 Urine Appearance CLOUDY 09/16 145 Urine pH 8.0 09/16 145 Ur Specific [place] 1.015 09/16 145 Urine Protein (mg/dL) 2+ 09/16 1450 Urine Ketones (mg/dL) TRACE 09/16 1450 Urine Blood 3+ 09/16 1450 Urine Nitrate POSITIVE 09/16 1450 Urine Bilirubin 2+ 09/16 1450 Urine Urobilinogen (E.U./dL) 1.0 09/16 1450 Ur Leukocyte Esterase 2+ 09/16 1450 Urine RBC (rbc/hpf) 10-20 09/16 1450 Urine WBC (wbc/hpf) 10-20 09/16 145 Ur Squamous Epith Cells (#/hpf) NONE 09/16 1450 Urine Bacteria 1+ 09/16 145 Urine Glucose NEGATIVE 09/16 1450 Additional data: HH stable Assessment findings Assessment Exam General appearance: no acute distress Respiratory: no respiratory distress ABD: soft Patient plan Diagnoses: Anemia - stable with no sign of ongoing hemorrhage Recent fall with lower extremity soft tissue injury Supratherapeutic on Coumadin-INR now within range Renal insufficiency Severe pelvic floor prolapse (chronic) Plan: continue management as per primary service Additional data: There is no definitive sign that she has had any gastrointestinal hemorrhage. Considering her comorbid conditions, the risks of endoscopy likely outweigh the benefits. UGI/SBFT and barium enema can be considered in the future to evaluate for possible large lesion/mass. However, foregoing any procedures is also a reasonable option. at [id number]
--- NOTE | 2017-09-17 14:57 | ACUTE CARE PROGRESS NOTE ---
Progress note Date: 09/17/17 Assessment: Subjective Patient seen on the floor along with her family. Patient appears drowsy but easily arousable. Family says she has been somewhat confused today. Patient says she has no pain at rest. She was restarted on gabapentin for her bilateral foot pain. She is not complaining of any distal tingling or numbness. Objective: I reviewed her vital signs, lab results, nursing notes, medical progress notes, medication and also discussed with the nursing staff. Laboratory Tests 09/17/17 0615: Sodium 135 L, Potassium 4.5, Chloride 105, Carbon Dioxide 14 L, BUN 110 *H, Creatinine 3.8 H, Estimated Creat Clear 11 L, Estimated GFR (MDRD) 11 *L, Glucose 89, Calcium 8.3 L, Creatine Kinase 215 H, PT 16.0 H, INR 1.48 H, WBC 7.3, RBC 2.86 L, Hgb 9.3 L, Hct 28.8 L, MCV 100.6 H, RDW 26.7 *H, Plt Count 31 *L, MPV 11.3 H, Gran % 83.2 H, Gran # 6.0, Lymphocytes % 10.0, Monocytes % 6.3, Eosinophils % 0.3, Basophils % 0.1, Lymphocytes # 0.7, Monocytes # 0.5, Eosinophils # 0.0, Basophils # 0.0, PUBS MCHC 32.3, MCH 32.4 H 09/16/17 2125: Hgb 9.3 L, Hct 28.2 L 09/16/17 1558: Hgb 9.3 L, Hct 27.8 L Vital Signs Result Date Time Pulse Ox 95 09/17 1230 B/P 118/71 09/17 1230 O2 Delivery ROOM AIR 09/17 123 Temp 98.3 09/17 1230 Pulse 115 09/17 1230 Resp 24 09/17 1230 Exam General appearance: sleeping but arouses and answers questions. No acute distress. Cardiovascular: regular rate & rhythm Respiratory: clear to auscultation ABD: soft, nontender, non-distended. Genitourinary: Huff in place Extremities: On examination of her left lower extremity, there is extensive ecchymosis over the leg, ankle and foot. The swelling has improved compared to yesterday. There is a small ulceration over the vanessa with serous discharge. Pitting edema 2+ over the left leg, ankle and foot. The leg is warm and tender to touch. There is no induration. She has good range of active and passive ankle, foot and toe movements. No stretch pain. Distal sensation is intact to light touch. Dorsalis pedis and posterior tibial pulses not palpable in both legs. Capillary refill sluggish bilaterally. Impression: 1. Acute renal failure 2. Acute blood loss anemia 3. Rhabdomyolysis 4. Dehydration 5. Chronic kidney disease (CKD), stage IV (severe) 6. Fall with injury 7. Supratherapeutic INR Status: Resolved 8. Left leg pain 9. Anticoagulant long-term use 10. Cardiomyopathy 11. Rectal prolapse 12. Bladder prolapse 13. History of ASCVD 14. Hiatal hernia with gastroesophageal reflux 15. Macrocytic anemia 16. Thrombocytopenia 17. Osteoporosis 18. Intermittent atrial fibrillation 19. UTI (urinary tract infection) 20. Cellulitis of leg, left 21. Degenerative arthritis of left knee Plan: I reviewed the clinical findings and progress with the patient and her family. Continue the present conservative management with regards to her left leg. Her H&H is stable and INR is subtherapeutic now. Continue as needed pain medication. Continue observation for development of compartment syndrome. Medical management as per Dr. Hernandez team. at [phone]
[2017-09-18] VITALS (8 sets, daily range): BP systolic 102–143; BP diastolic 52–89
[2017-09-18 08:06] LABS: HEMOGLOBIN 9.4 g/dL (12.2-16.2)
[2017-09-18 08:07] LABS: LYMPH # 0.6 K/mm3 (0.7-4.5); LYMPH % 12.1 % (10-50.0)
--- NOTE | 2017-09-18 08:26 | SURGEON PROGRESS NOTE ---
Subjective data Subjective data: More alert. Objective data Vitals,I&O,and Labs: Vital signs, intake and output,and available lab data for the last 24 hours is as noted below. Vital Signs Date Time Temp Pulse Resp B/P Pulse O2 O2 Flow FiO2 Ox Delivery Rate 09/18 0736 98.2 116 20 125/81 99 ROOM AIR 09/18 0502 98.4 113 18 143/89 97 ROOM AIR 09/18 0110 97.8 101 16 143/83 98 ROOM AIR 09/18 0101 18 09/17 2100 98.4 94 18 114/62 97 09/17 2048 98.4 94 18 114/62 97 ROOM AIR 09/17 1609 99.2 95 22 107/48 96 ROOM AIR 09/17 1230 98.3 115 24 118/71 95 ROOM AIR 09/17 1148 18 09/17 0945 98.6 99 22 111/67 96 09/17 1500 09/17 2300 09/18 0700 Intake Total 2025 3556 Output Total 800 950 Balance 2025 -800 2606 Intake, IV 1906 3196 Intake, Oral 120 360 Output, Urine 800 950 Patient 58.571 kg Weight Laboratory Tests Test Result Date Time Chemistry Sodium (mmoL/L) 137 09/18 06 Potassium (mmoL/L) 4.3 09/18 06 Chloride (mmoL/L) 109 09/18 06 Carbon Dioxide (mmoL/L) 14 09/18 620 BUN (mg/dL) 76 09/18 620 Creatinine (mg/dL) 2.5 09/18 620 Estimated Creat Clear (ML/MIN) 17 09/18 620 Estimated GFR (MDRD) (ML/MIN) 19 09/18 620 Glucose (mg/dL) 95 09/18 0620 Calcium (mg/dL) 7.9 09/18 620 Iron (send out) (ug/dL) 23 09/15 1435 TIBC (ug/dL) 230 09/15 1435 % Saturation (%) 10 09/15 1435 Unsaturated IBC (ug/dL) 207 09/15 143 Total Bilirubin (mg/dL) 0.8 09/16 06 AST (U/L) 49 09/16 06 ALT (U/L) 24 09/16 06 Alkaline Phosphatase (U/L) 74 09/16 0610 Creatine Kinase (U/L) 215 09/17 615 CK-MB (CK-2) Rel Index (U/L) 1.3 09/16 610 CK and CKMB Interp (ng/mL) 7.8 09/16 610 Troponin I (ng/mL) 0.11 09/16 610 Total Protein (gm/dL) 5.2 09/16 610 Albumin (gm/dL) 2.1 09/16 610 Globulin (gm/dL) 3.1 09/16 610 Albumin/Globulin Ratio 0.7 09/16 610 TSH (uIU/ml) 2.40 09/15 1435 Coagulation PT (SECONDS) 13.3 09/18 620 INR 1.23 09/18 620 Hematology WBC (K/MM3) 5.3 09/18 620 RBC (M/mm3) 2.89 09/18 620 Hgb (g/dL) 9.4 09/18 620 Hct (%) 30.6 09/18 620 MCV (fl) 105.8 09/18 620 RDW (%) 26.6 09/18 620 Plt Count (K/mm3) 31 09/18 620 MPV (fl) 11.3 09/18 620 Gran % (%) 79.9 09/18 620 Gran # (K/mm3) 4.3 09/18 620 Total Counted (#CELLS) 100 09/15 1435 Lymphocytes % (%) 12.1 09/18 620 Monocytes % (%) 7.5 09/18 620 Eosinophils % (%) 0.4 09/18 620 Basophils % (%) 0.2 09/18 620 Neutrophils (%) 85 09/15 1435 Band Neutrophils (%) 3 09/15 1435 Lymphocytes (Manual) (%) 8 09/15 1435 Lymphocytes # (K/mm3) 0.6 09/18 620 Monocytes (Manual) (%) 4 09/15 1435 Monocytes # (K/mm3) 0.4 09/18 620 Eosinophils # (K/mm3) 0.0 09/18 620 Basophils # (K/MM3) 0.0 09/18 620 Platelet Estimate MOD DECREASE 09/15 1435 Poikilocytosis 1+ 09/15 1435 Anisocytosis 2+ 09/15 1435 Macrocytosis 2+ 09/15 1435 PUBS MCHC (g/dl) 30.6 09/18 620 Immunology Antibody Screen NEGATIVE 09/15 1435 MCH (pg) 32.4 09/18 620 Miscellaneous Miscellaneous Test POSITIVE 09/15 1435 Misc Test Units BLOOD UNIT RELEASE 09/16 1257 Toxicology Digoxin (ng/mL) 2.35 09/15 1435 Urines Urine Color OTHER 09/16 145 Urine Appearance CLOUDY 09/16 145 Urine pH 8.0 09/16 145 Ur Specific [place] 1.015 09/16 145 Urine Protein (mg/dL) 2+ 09/16 145 Urine Ketones (mg/dL) TRACE 09/16 1450 Urine Blood 3+ 09/16 145 Urine Nitrate POSITIVE 09/16 1450 Urine Bilirubin 2+ 09/16 1450 Urine Urobilinogen (E.U./dL) 1.0 09/16 1450 Ur Leukocyte Esterase 2+ 09/16 1450 Urine RBC (rbc/hpf) 10-20 09/16 145 Urine WBC (wbc/hpf) 10-20 09/16 145 Ur Squamous Epith Cells (#/hpf) NONE 09/16 1450 Urine Bacteria 1+ 09/16 145 Urine Glucose NEGATIVE 09/16 1450 Assessment findings Assessment Exam General appearance: alert Cardiovascular: regular rate & rhythm Respiratory: no respiratory distress Patient plan Diagnoses: Anemia - stable with no sign of GI loss and no sign of ongoing hemorrhage Severe chronic pelvic floor prolapse Plan: as per primary service Additional data: The patient's severe pelvic floor prolapse is chronic and does not require emergent intervention. If the patient becomes medically stable, consideration of repair at a tertiary care center is reasonable. at [phone]
--- NOTE | 2017-09-18 08:40 | ACUTE CARE PROGRESS NOTE (QUA) ---
Progress Notes Subjective Date 09/18/17 Time 0806 Note Miserable; legs hurt intermittently and hard to find comfort; describes the pain as a spasm, worse on the left; son stayed with her last night and stated changing positions helps; pain med helps very little; has had ice to left leg; eating poorly; denies nausea, CP and SOB; has not been OOB Objective Findings Laboratory Tests 09/18/17 0620: Sodium 137, Potassium 4.3, Chloride 109 H, Carbon Dioxide 14 L, BUN 76 H, Creatinine 2.5 H, Estimated Creat Clear 17 L, Estimated GFR (MDRD) 19 *L, Glucose 95, Calcium 7.9 L, PT 13.3 H, INR 1.23 H, WBC 5.3, RBC 2.89 L, Hgb 9.4 L, Hct 30.6 L, MCV 105.8 H, RDW 26.6 *H, Plt Count 31 *L, MPV 11.3 H, Gran % 79.9, Gran # 4.3, Lymphocytes % 12.1, Monocytes % 7.5, Eosinophils % 0.4, Basophils % 0.2, Lymphocytes # 0.6 L, Monocytes # 0.4, Eosinophils # 0.0, Basophils # 0.0, PUBS MCHC 30.6 L, MCH 32.4 H Vital Signs Date Time Temp Pulse Resp B/P Pulse O2 O2 Flow FiO2 Ox Delivery Rate 09/18 0736 98.2 116 20 125/81 99 ROOM AIR 09/18 0502 98.4 113 18 143/89 97 ROOM AIR 09/18 0110 97.8 101 16 143/83 98 ROOM AIR 09/18 0101 18 09/17 2100 98.4 94 18 114/62 97 09/17 2048 98.4 94 18 114/62 97 ROOM AIR 09/17 1609 99.2 95 22 107/48 96 ROOM AIR 09/17 1230 98.3 115 24 118/71 95 ROOM AIR 09/17 1148 18 09/17 0945 98.6 99 22 111/67 96 09/17 0813 98.6 99 22 111 96 ROOM AIR Current Medications Miscellaneous Information 1 EACH ONCE ONE * Hydrocodone Bitart/Acetaminophen 0 .STK-MED ONE PO (DC) Hydrocodone Bitart/Acetaminophen 0 .STK-MED ONE PO (DC) Morphine Sulfate 0 .STK-MED ONE .ROUTE (DC) Sodium Chloride 1,000 ML .STK-MED ONE IV (DC) Levofloxacin 250 MG 1100 PO Digoxin 0.125 MG DAILY PO Gabapentin 100 MG BID PO Vancomycin HCl 1,000 MG Q72H IV (CKD) Sodium Chloride 250 ML Levothyroxine Sodium 0.1 MG DAILY PO Sodium Chloride 10 ML PRN PRN IV Morphine Sulfate 2 MG Q2HP PRN IV Sodium Chloride 1,000 ML .Q10H IV Hydrocodone Bitart/Acetaminophen 1 TAB Q6HP PRN PO Influenza Virus Vaccine Quadrival 0.5 ML PRN PRN IM 09/17 1500 09/17 2300 09/18 0700 Intake Total 2025 3556 Output Total 800 950 Balance 2025 - 2606 Intake, IV 1906 3196 Intake, Oral 120 360 Output, Urine 800 950 Patient 129 lb Weight Last VS-Temp:98.2 B/P:125/81 Pulse:116 Resp:20 SaO2:99 ROOM AIR Last weight lbs:129 oz:2 K.571 Method:Bed Scales > URINE CULTURE Final 09/18/17-0620 COLONY COUNT >100,000 CFU/ml Organism 1 [facility]ENCIA RETTGERI 1. [facility]IA RETTGERI RX AB M.I.C ROUTE COST I ------ -- --------- ----- ------ AMPICILLIN R 16 AMPICILLIN/SULBACTAM R >=32 CEFAZOLIN R >=64 CEFTAZIDIME (FORTAZ) S <=1 CEFEPIME S <=1 GENTAMICIN S <=1 CEFTRIAXONE S <=1 LEVOFLOXACIN S <=0.12 NITROFURANTOIN (MACRODANTIN) R 256 PIPERACILLIN/TAZOBACTAM S <=4 TOBRAMYCIN S <=1 sensitive to Levaquin which pt is on Exam General appearance: alert, no acute distress, uncomfortable most of the time when in the room Cardiovascular: irregularly irregular Respiratory: few bibasilar crackles ABD: non-distended, soft, no tenderness, bowel sounds present Genitourinary: catheter in place, velazquez cath draining brown urine Extremities: right lower leg with edema; left lower leg with 1cm open area with dressing, ecchymosis, soft, tender where ever touched Neuro: alert, speech clear, answers questions appropriately Assessment/Plan Problem List 1. Acute renal failure 2. Acute blood loss anemia 3. Rhabdomyolysis 4. Dehydration 5. Chronic kidney disease (CKD), stage IV (severe) 6. Fall with injury 7. Supratherapeutic INR Status: Resolved 8. Left leg pain 9. Anticoagulant long-term use 10. Cardiomyopathy 11. Rectal prolapse 12. Bladder prolapse 13. History of ASCVD 14. Hiatal hernia with gastroesophageal reflux 15. Macrocytic anemia 16. Thrombocytopenia 17. Osteoporosis 18. Intermittent atrial fibrillation 19. UTI (urinary tract infection) 20. Cellulitis of leg, left 21. Degenerative arthritis of left knee 22. Pelvic floor relaxation Patient condition improved/guarded Plan: will add baclofen 5mg tid for muscle spasms; IVF was decreased with improved renal function; H&H stable This inpt stay is expected to cross 2 MNs from start of care Yes at 0843
--- NOTE | 2017-09-18 12:41 | ACUTE CARE PROGRESS NOTE ---
Progress note Date: 09/18/17 Assessment: Subjective: Patient is still complaining of pain in both lower extremities the left being worse than the right. She says she has very little pain at rest. Pain is aggravated with movements and also reports occasional spasms bilaterally. She is not complaining of any distal tingling or numbness. No history of any fevers , chills or rigors. Objective: I reviewed her vital signs, lab results, nursing notes, medical progress notes, medication and also discussed with the nursing staff. Laboratory Tests 09/18/17 0620: Sodium 137, Potassium 4.3, Chloride 109 H, Carbon Dioxide 14 L, BUN 76 H, Creatinine 2.5 H, Estimated Creat Clear 17 L, Estimated GFR (MDRD) 19 *L, Glucose 95, Calcium 7.9 L, PT 13.3 H, INR 1.23 H, WBC 5.3, RBC 2.89 L, Hgb 9.4 L, Hct 30.6 L, MCV 105.8 H, RDW 26.6 *H, Plt Count 31 *L, MPV 11.3 H, Gran % 79.9, Gran # 4.3, Lymphocytes % 12.1, Monocytes % 7.5, Eosinophils % 0.4, Basophils % 0.2, Lymphocytes # 0.6 L, Monocytes # 0.4, Eosinophils # 0.0, Basophils # 0.0, PUBS MCHC 30.6 L, MCH 32.4 H Vital Signs Result Date Time Pulse Ox 99 09/18 1143 B/P 115/64 09/18 1143 O2 Delivery ROOM AIR 09/18 1143 Temp 98.4 09/18 114 Pulse 83 09/18 1143 Resp 20 09/18 1143 Exam General appearance: Alert and oriented. No acute distress. Cardiovascular: Irregularly irregular Respiratory: clear to auscultation ABD: soft, nontender, non-distended. Genitourinary: Huff in place Extremities: On examination of her left lower extremity, there is extensive ecchymosis over the leg, ankle and foot. There is small, 1 cm ulceration over the distal anterior leg with small amount of serous discharge. The base of the ulcer looks unhealthy. There is moderate swelling and pitting edema 2+ over the left leg, ankle and foot. The leg is warm and tender to touch. There is no induration. She has good range of active and passive ankle, foot and toe movements. No stretch pain. Distal sensation is intact to light touch. Dorsalis pedis and posterior tibial pulses not palpable in both legs. Capillary refill sluggish bilaterally. She is also tender over the left leg, foot and ankle. Impression: 1. Acute renal failure 2. Acute blood loss anemia 3. Rhabdomyolysis 4. Dehydration 5. Chronic kidney disease (CKD), stage IV (severe) 6. Fall with injury 7. Supratherapeutic INR Status: Resolved 8. Left leg pain 9. Anticoagulant long-term use 10. Cardiomyopathy 11. Rectal prolapse 12. Bladder prolapse 13. History of ASCVD 14. Hiatal hernia with gastroesophageal reflux 15. Macrocytic anemia 16. Thrombocytopenia 17. Osteoporosis 18. Intermittent atrial fibrillation 19. UTI (urinary tract infection) 20. Cellulitis of leg, left 21. Degenerative arthritis of left knee 22. Pelvic floor relaxation Plan: I reviewed the clinical findings and progress with the patient and her family. As of no there is no abscess formation or evidence of compartment syndrome. Therefore, no surgical intervention is needed at this stage. Recommend continuation of the conservative management with regards to her left leg. Continue as needed pain medication. Continue observation for development of compartment syndrome. Medical management as per Dr. Bryant's team. Antibiotic Stewardship (2) Current Culture Results Microbiology 09/16 1450 URINE CATH: Urine Culture - COMP [facility]ENC[facility] RETTGERI at 0845
--- NOTE | 2017-09-18 18:05 | ACUTE CARE PROGRESS NOTE (QUA) ---
Progress Notes Subjective Date 09/18/17 Time 1803 Note Finally achieving some pain relief with Fetanyl patch. Able to eat a bit today. Objective Findings Last VS-Temp:98.5 B/P:102/70 Pulse:104 Resp:20 SaO2:99 ROOM AIR Last weight lbs:129 oz:2 K.571 Method:Bed Scales Assessment/Plan Problem List 1. Acute renal failure 2. Acute blood loss anemia 3. Rhabdomyolysis 4. Dehydration 5. Chronic kidney disease (CKD), stage IV (severe) 6. Fall with injury 7. Supratherapeutic INR Status: Resolved 8. Left leg pain 9. Anticoagulant long-term use 10. Cardiomyopathy 11. Rectal prolapse 12. Bladder prolapse 13. History of ASCVD 14. Hiatal hernia with gastroesophageal reflux 15. Macrocytic anemia 16. Thrombocytopenia 17. Osteoporosis 18. Intermittent atrial fibrillation 19. UTI (urinary tract infection) 20. Cellulitis of leg, left 21. Degenerative arthritis of left knee 22. Pelvic floor relaxation Patient condition Guarded Plan: continue current care This inpt stay is expected to cross 2 MNs from start of care Yes at 1804
[2017-09-19] VITALS (8 sets, daily range): BP systolic 96–145; BP diastolic 50–79
[2017-09-19 06:36] LABS: Folate (Folic Acid) >20.0 ng/mL (>3.0); Vitamin B12 1953 pg/mL (211-946)
[2017-09-19 07:22] LABS: HEMOGLOBIN 8.7 g/dL (12.2-16.2)
[2017-09-19 07:30] LABS: LYMPH # 0.9 K/mm3 (0.7-4.5); LYMPH % 16.4 % (10-50.0)
--- NOTE | 2017-09-19 08:06 | ACUTE CARE PROGRESS NOTE (QUA) ---
See Addendum Progress Notes Subjective Date 09/19/17 Time 0746 Note Daughter stayed with her all night-states that she slept well; Patient awakened for assessment and does not know how she feels; denies pain at present; per nursing notes: did eat some yesterday; had a hard stool; Continues with velazquez cath; IVF at 100/hour; renal function continues to improve. Objective Findings Laboratory Tests 09/19/17 0640: Sodium 139, Potassium 4.1, Chloride 112 H, Carbon Dioxide 14 L, BUN 53 H, Creatinine 1.9 H, Estimated Creat Clear 23 L, Estimated GFR (MDRD) 25 L, Glucose 87, Calcium 7.7 L, WBC 5.2, RBC 2.64 L, Hgb 8.7 L, Hct 27.3 L, MCV 103.1 H, RDW 27.1 *H, Plt Count 26 *L, MPV 9.8, Gran % 76.9, Gran # 4.0, Lymphocytes % 16.4, Monocytes % 5.6, Eosinophils % 0.9, Basophils % 0.1, Lymphocytes # 0.9, Monocytes # 0.3, Eosinophils # 0.1, Basophils # 0.0, PUBS MCHC 31.9, MCH 32.9 H Vital Signs Date Time Temp Pulse Resp B/P Pulse O2 O2 Flow FiO2 Ox Delivery Rate 09/19 0722 98.9 94 20 111/63 95 ROOM AIR 09/19 0519 20 09/19 0421 100.8 88 20 96/50 95 ROOM AIR 09/19 0020 99.5 87 18 111/76 95 ROOM AIR 09/18 2159 20 09/18 2011 98.6 72 20 106/52 97 ROOM AIR 09/18 1945 98.6 72 20 106/52 97 09/18 1539 98.5 104 20 102/70 99 ROOM AIR 09/18 1531 20 09/18 1445 20 09/18 1143 98.4 83 20 115/64 99 ROOM AIR 09/18 1057 20 09/18 0930 98.2 116 20 125/81 99 Current Medications Miscellaneous Information 1 EACH ONCE ONE * Hydrocodone Bitart/Acetaminophen 0 .STK-MED ONE PO (DC) Acetaminophen 0 .STK-MED ONE PO (DC) Hydrocodone Bitart/Acetaminophen 0 .STK-MED ONE PO (DC) Acetaminophen 0 .STK-MED ONE PO (DC) Hydrocodone Bitart/Acetaminophen 0 .STK-MED ONE PO (DC) Acetaminophen 325 MG Q8 PO (DC) Fentanyl 0 .STK-MED ONE TD (DC) Fentanyl 25 MCG Q72H TD Morphine Sulfate 0 .STK-MED ONE .ROUTE (DC) Morphine Sulfate 0 .STK-MED ONE .ROUTE (DC) Sodium Chloride 1,000 ML .STK-MED ONE IV (DC) Acetaminophen 325 MG Q8 PO Gabapentin 200 MG TID PO Hydrocodone Bitart/Acetaminophen 1 TAB Q8 PO Hydrocodone Bitart/Acetaminophen 0 .STK-MED ONE PO (DC) Baclofen 5 MG TID PO Levofloxacin 250 MG 1100 PO Digoxin 0.125 MG DAILY PO Gabapentin 100 MG BID PO (DC) Vancomycin HCl 1,000 MG Q72H IV (CKD) Sodium Chloride 250 ML Levothyroxine Sodium 0.1 MG DAILY PO Sodium Chloride 10 ML PRN PRN IV Morphine Sulfate 2 MG Q2HP PRN IV Sodium Chloride 1,000 ML .Q10H IV Hydrocodone Bitart/Acetaminophen 1 TAB Q6HP PRN PO (DC) Influenza Virus Vaccine Quadrival 0.5 ML PRN PRN IM 09/18 1500 1030 2300 10/31 0700 Intake Total 600 120 Output Total 1000 1400 Balance 600 -880 -1400 Intake, Oral 600 120 Output, Stool Output, Urine 1000 1400 Patient 133 lb Weight Last VS-Temp:98.9 B/P:111/63 Pulse:94 Resp:20 SaO2:95 ROOM AIR Last weight lbs:133 oz:2 K.384 Method:Bed Scales Exam General appearance: alert, awakened for exam; smiles and answers questions appropriately Cardiovascular: irregularly irregular Respiratory: clear to auscultation ABD: non-distended, soft, no tenderness, bowel sounds present Genitourinary: catheter in place, Urine is clearing with small blood clots Extremities: bilateral leg edema > on the left and ecchymosis; legs are soft ; Kpad on the left leg; moves feet without pain Neuro: alert Assessment/Plan Problem List 1. Acute renal failure 2. Acute blood loss anemia 3. Rhabdomyolysis 4. Dehydration 5. Chronic kidney disease (CKD), stage IV (severe) 6. Fall with injury 7. Supratherapeutic INR Status: Resolved 8. Left leg pain 9. Anticoagulant long-term use 10. Cardiomyopathy 11. Rectal prolapse 12. Bladder prolapse 13. History of ASCVD 14. Hiatal hernia with gastroesophageal reflux 15. Macrocytic anemia 16. Thrombocytopenia 17. Osteoporosis 18. Intermittent atrial fibrillation 19. UTI (urinary tract infection) 20. Cellulitis of leg, left 21. Degenerative arthritis of left knee 22. Pelvic floor relaxation Patient condition Improving Plan: continue current care, start PT as tolerated This inpt stay is expected to cross 2 MNs from start of care Yes at 0806 at 0912
--- NOTE | 2017-09-19 08:26 | SURGEON PROGRESS NOTE ---
Subjective data Subjective data: Resting. Objective data Vitals,I&O,and Labs: Vital signs, intake and output,and available lab data for the last 24 hours is as noted below. Vital Signs Date Time Temp Pulse Resp B/P Pulse O2 O2 Flow FiO2 Ox Delivery Rate 09/19 0722 98.9 94 20 111/63 95 ROOM AIR 09/19 0519 20 09/19 0421 100.8 88 20 96/50 95 ROOM AIR 09/19 0020 99.5 87 18 111/76 95 ROOM AIR 09/18 2159 20 09/18 2011 98.6 72 20 106/52 97 ROOM AIR 09/18 1945 98.6 72 20 106/52 97 09/18 1539 98.5 104 20 102/70 99 ROOM AIR 09/18 1531 20 09/18 1445 20 09/18 1143 98.4 83 20 115/64 99 ROOM AIR 09/18 1057 20 09/18 0930 98.2 116 20 125/81 99 09/18 1500 09/18 2300 09/19 0700 Intake Total 600 120 Output Total 1000 1400 Balance 600 -880 -1400 Intake, Oral 600 120 Output, Stool Output, Urine 1000 1400 Patient 60.384 kg Weight Laboratory Tests Test Result Date Time Chemistry Sodium (mmoL/L) 139 09/19 640 Potassium (mmoL/L) 4.1 09/19 640 Chloride (mmoL/L) 112 09/19 06 Carbon Dioxide (mmoL/L) 14 09/19 640 BUN (mg/dL) 53 09/19 640 Creatinine (mg/dL) 1.9 09/19 640 Estimated Creat Clear (ML/MIN) 23 09/19 640 Estimated GFR (MDRD) (ML/MIN) 25 09/19 06 Glucose (mg/dL) 87 09/19 640 Calcium (mg/dL) 7.7 09/19 640 Iron (send out) (ug/dL) 23 09/15 1435 TIBC (ug/dL) 230 09/15 1435 % Saturation (%) 10 09/15 1435 Unsaturated IBC (ug/dL) 207 09/15 1435 Total Bilirubin (mg/dL) 0.8 09/16 06 AST (U/L) 49 09/16 06 ALT (U/L) 24 09/16 06 Alkaline Phosphatase (U/L) 74 09/16 610 Creatine Kinase (U/L) 215 09/17 615 CK-MB (CK-2) Rel Index (U/L) 1.3 09/16 610 CK and CKMB Interp (ng/mL) 7.8 09/16 610 Troponin I (ng/mL) 0.11 09/16 610 Total Protein (gm/dL) 5.2 09/16 610 Albumin (gm/dL) 2.1 09/16 610 Globulin (gm/dL) 3.1 09/16 610 Albumin/Globulin Ratio 0.7 09/16 610 TSH (uIU/ml) 2.40 09/15 1435 Coagulation PT (SECONDS) 13.3 09/18 620 INR 1.23 09/18 620 Hematology WBC (K/MM3) 5.2 09/19 640 RBC (M/mm3) 2.64 09/19 640 Hgb (g/dL) 8.7 09/19 640 Hct (%) 27.3 09/19 640 MCV (fl) 103.1 09/19 640 RDW (%) 27.1 09/19 640 Plt Count (K/mm3) 26 09/19 640 MPV (fl) 9.8 09/19 640 Gran % (%) 76.9 09/19 640 Gran # (K/mm3) 4.0 09/19 640 Total Counted (#CELLS) 100 09/15 143 Lymphocytes % (%) 16.4 09/19 640 Monocytes % (%) 5.6 09/19 640 Eosinophils % (%) 0.9 09/19 640 Basophils % (%) 0.1 09/19 640 Neutrophils (%) 85 09/15 143 Band Neutrophils (%) 3 09/15 143 Lymphocytes (Manual) (%) 8 09/15 143 Lymphocytes # (K/mm3) 0.9 09/19 640 Monocytes (Manual) (%) 4 09/15 1435 Monocytes # (K/mm3) 0.3 09/19 640 Eosinophils # (K/mm3) 0.1 09/19 640 Basophils # (K/MM3) 0.0 09/19 640 Platelet Estimate MOD DECREASE 09/15 1435 Poikilocytosis 1+ 09/15 1435 Anisocytosis 2+ 09/15 1435 Macrocytosis 2+ 09/15 1435 PUBS MCHC (g/dl) 31.9 09/19 640 Immunology Antibody Screen NEGATIVE 09/15 1435 MCH (pg) 32.9 09/19 640 Miscellaneous Miscellaneous Test POSITIVE 09/15 143 Misc Test Units BLOOD UNIT RELEASE 09/16 1257 Toxicology Digoxin (ng/mL) 2.35 09/15 1435 Urines Urine Color OTHER 09/16 145 Urine Appearance CLOUDY 09/16 145 Urine pH 8.0 09/16 1450 Ur Specific [place] 1.015 09/16 145 Urine Protein (mg/dL) 2+ 09/16 145 Urine Ketones (mg/dL) TRACE 09/16 1450 Urine Blood 3+ 09/16 145 Urine Nitrate POSITIVE 09/16 145 Urine Bilirubin 2+ 09/16 145 Urine Urobilinogen (E.U./dL) 1.0 09/16 145 Ur Leukocyte Esterase 2+ 09/16 1450 Urine RBC (rbc/hpf) 10-20 09/16 1450 Urine WBC (wbc/hpf) 10-20 09/16 1450 Ur Squamous Epith Cells (#/hpf) NONE 09/16 1450 Urine Bacteria 1+ 09/16 1450 Urine Glucose NEGATIVE 09/16 1450 Assessment findings Assessment Exam General appearance: no acute distress Cardiovascular: regular rate & rhythm Respiratory: no respiratory distress Patient plan Diagnoses: anemia - slight decline in H/H today likely dilutional pelvic floor prolapse (chronic) Plan: as per primary service Additional data: possible transfusion if H/H continues to decline or if overtly symptomatic at 0826
--- NOTE | 2017-09-19 09:02 | ACUTE CARE PROGRESS NOTE ---
Progress note Date: 09/19/17 Assessment: Subjective: Patient is seen along with Dr. Bryant. Patient and her daughter both say the pain is better controlled since yesterday after starting her on fentanyl patch. She says she has very little pain at rest. Pain is aggravated with movements and pressure. She is not complaining of any distal tingling or numbness. No history of any fevers, chills or rigors. Objective: I reviewed her vital signs, lab results, nursing notes, medical progress notes, medication and also discussed with the nursing staff. Laboratory Tests 09/19/17 0640: Sodium 139, Potassium 4.1, Chloride 112 H, Carbon Dioxide 14 L, BUN 53 H, Creatinine 1.9 H, Estimated Creat Clear 23 L, Estimated GFR (MDRD) 25 L, Glucose 87, Calcium 7.7 L, WBC 5.2, RBC 2.64 L, Hgb 8.7 L, Hct 27.3 L, MCV 103.1 H, RDW 27.1 *H, Plt Count 26 *L, MPV 9.8, Gran % 76.9, Gran # 4.0, Lymphocytes % 16.4, Monocytes % 5.6, Eosinophils % 0.9, Basophils % 0.1, Lymphocytes # 0.9, Monocytes # 0.3, Eosinophils # 0.1, Basophils # 0.0, PUBS MCHC 31.9, MCH 32.9 H Vital Signs Result Date Time Pulse Ox 95 09/19 722 B/P 111/63 09/19 722 O2 Delivery ROOM AIR 09/19 722 Temp 98.9 09/19 722 Pulse 94 09/19 722 Resp 20 09/19 722 Exam General appearance: Alert and oriented. No acute distress. Cardiovascular: Irregularly irregular Respiratory: clear to auscultation ABD: soft, nontender, non-distended. Genitourinary: Huff in place Extremities: On examination of her left lower extremity, there is fading ecchymosis over the leg, ankle and foot. There is small, 1 cm ulceration over the distal anterior leg with small amount of serous discharge. The base of the ulcer looks unhealthy. There is also a second lesion next to it which is not draining. There is moderate swelling and pitting edema 2+ over the left leg, ankle and foot. The leg is warm and tender to touch. There is no induration. She has good range of active and passive ankle, foot and toe movements. No stretch pain. Distal sensation is intact to light touch. Dorsalis pedis and posterior tibial pulses not palpable in both legs. Capillary refill sluggish bilaterally. She is also tender over the left leg, foot and ankle. Impression: 1. Acute renal failure 2. Acute blood loss anemia 3. Rhabdomyolysis 4. Dehydration 5. Chronic kidney disease (CKD), stage IV (severe) 6. Fall with injury 7. Supratherapeutic INR Status: Resolved 8. Left leg pain 9. Anticoagulant long-term use 10. Cardiomyopathy 11. Rectal prolapse 12. Bladder prolapse 13. History of ASCVD 14. Hiatal hernia with gastroesophageal reflux 15. Macrocytic anemia 16. Thrombocytopenia 17. Osteoporosis 18. Intermittent atrial fibrillation 19. UTI (urinary tract infection) 20. Cellulitis of leg, left 21. Degenerative arthritis of left knee 22. Pelvic floor relaxation Plan: I reviewed the clinical findings and progress with the patient and her family. As of no there is no abscess formation or evidence of compartment syndrome. Therefore, no surgical intervention is needed at this stage. Dressings were changed and wound swab obtained for culture and sensitivity. Recommend continuation of the IV antibiotics and as needed pain medication. Continue observation for development of compartment syndrome. Recommend mobilization weightbearing as tolerated with the help of physical therapy. Medical management as per Dr. Bryant's team. at [id number]
--- NOTE | 2017-09-19 09:33 | CONSULT NOTE ---
Pharmacokinetic Consult Date of consult: 09/19/17 Time of consult: 929 Referring provider: DR. CONTRERAS Reason for consult: VANCOMYCIN TROUGH LEVEL Allergies: Coded Allergies: No Known Drug Allergies (04/27/16) cefdinir (09/15/17) Home Medications: Reported Medications FOLIC ACID (Folic Acid) 1 MG PO DAILY Ferrous Sulfate (Ferrous Sulfate 325MG) 325 MG PO TID Atorvastatin Calcium (Lipitor 10MG) 10 MG PO QHS ALLOPURINOL (Allopurinol 100MG) 100 MG PO DAILY WARFARIN SOD (Warfarin 1MG) 2.5 MG PO DAILY DIGOXIN (Digox) 0.125 MG PO DAILY Levothyroxine Sodium (Levothyroxine 0.1MG) 0.1 MG PO DAILY Spironolactone (Spironolactone) 25 MG NG BID ACETAMINOPHEN WITH CODEINE (Tylenol With Codeine #3 Tablet) 1 TAB PO QHS CHOLECALCIFEROL (VITAMIN D3) (Vitamin D3) 1,000 IUNITS PO DAILY Metolazone (Metolazone 2.5MG) 2.5 MG PO BID Gabapentin (Gabapentin 100MG) 100 MG PO DAILY Gabapentin (Gabapentin 100MG) 200 MG PO QHS DIPHENOXYLATE HCL/ATROPINE (Lomotil 2.5-0.025 MG Tablet) 1 TAB PO QIDP PRN DIARRHEA NITROGLYCERIN (Nitrostat) 0.4 MG SL [id number] PRN CHEST PAIN PRAMIPEXOLE DIHYDROCHLORIDE MO (Pramipexole) 0.5 MG NG QHS Height (feet): 4 Height (inches): 11.00 Medical History: CAD? Yes Angina: Yes MD: Yes Hypertension? Yes Hyperlipidemia? No CHF? Yes DVT? No PE? No COPD? No Asthma? No Anemia? Yes GERD? No Hernia? No Thyroid Problems? Yes Hypothyroidism? Yes CVA? No Seizures? No Diabetes? No UTI? No Stones? No GB Disease: No Hepatitis? No Cataracts? No Glaucoma? No MRSA? No TB? No Cancer? No More? No Additional hx: 1. Paroxysmal afib 2. Right Hip fx 3. Osteoporosis both hips Labs: Laboratory Tests 09/19/17 0640: Sodium 139, Potassium 4.1, Chloride 112 H, Carbon Dioxide 14 L, BUN 53 H, Creatinine 1.9 H, Estimated Creat Clear 23 L, Estimated GFR (MDRD) 25 L, Glucose 87, Calcium 7.7 L, WBC 5.2, RBC 2.64 L, Hgb 8.7 L, Hct 27.3 L, MCV 103.1 H, RDW 27.1 *H, Plt Count 26 *L, MPV 9.8, Gran % 76.9, Gran # 4.0, Lymphocytes % 16.4, Monocytes % 5.6, Eosinophils % 0.9, Basophils % 0.1, Lymphocytes # 0.9, Monocytes # 0.3, Eosinophils # 0.1, Basophils # 0.0, PUBS MCHC 31.9, MCH 32.9 H, Vancomycin Trough 6.6 L Problem List: 1. Cellulitis of leg, left Plan: PATIENT'S SRCR HAS DECREASED TO 1.9 TODAY. BASED ON PATIENT FACTORS AND VANCOMYCIN TROUGH LEVEL, RECOMMEND CHANGING INTERVAL TO VANCOMYCIN 1 GM IV Q48H. PHARMACY WILL CONTINUE TO MONITOR DAILY AND ADJUST APPROPRIATE. at 0932
--- NOTE | 2017-09-19 09:34 | ACUTE CARE PROGRESS NOTE (QUA) ---
Progress Notes Subjective Date 09/19/17 Time 0933 Assessment/Plan Problem List 1. Acute renal failure 2. Acute blood loss anemia 3. Rhabdomyolysis 4. Dehydration 5. Chronic kidney disease (CKD), stage IV (severe) 6. Fall with injury 7. Supratherapeutic INR Status: Resolved 8. Left leg pain 9. Anticoagulant long-term use 10. Cardiomyopathy 11. Rectal prolapse 12. Bladder prolapse 13. History of ASCVD 14. Hiatal hernia with gastroesophageal reflux 15. Macrocytic anemia 16. Thrombocytopenia 17. Osteoporosis 18. Intermittent atrial fibrillation 19. UTI (urinary tract infection) 20. Cellulitis of leg, left 21. Degenerative arthritis of left knee 22. Pelvic floor relaxation This inpt stay is expected to cross 2 MNs from start of care Yes Antibiotic Stewardship (2) Current Culture Results Microbiology 09/16 1450 URINE CATH: Urine Culture - COMP [facility] RETTGERI Infxn that will respond? Yes Right drug,dose,and route? Yes More targeted antbx? No at 0947
[2017-09-19 17:49] LABS: HEMOGLOBIN 8.6 g/dL (12.2-16.2)
[2017-09-19 18:33] LABS: LYMPH # 0.7 K/mm3 (0.7-4.5); LYMPH % 13.8 % (10-50.0)
[2017-09-20 04:10] VITALS: BP 128/88
[2017-09-20 07:40] VITALS: BP 134/75
--- NOTE | 2017-09-20 08:11 | ACUTE CARE PROGRESS NOTE (QUA) ---
Progress Notes Subjective Date 09/20/17 Time 0804 Note Pt finally sleeping and sleeping well this am. Family states she just went to sleep and has been c/o pain in the lower extremities off and on. According to her nurse, she is not taking her lortab as scheduled and they would like to know if it can be made prn. Objective Findings Last VS-Temp:99.6 B/P:134/75 Pulse:104 Resp:22 SaO2:98 ROOM AIR Last weight lbs:141 oz:3 K.042 Method:Bed Scales Laboratory Tests 09/19/17 1630: WBC 4.9, RBC 2.63 L, Hgb 8.6 L, Hct 27.5 L, MCV 104.4 H, RDW 27.0 *H, Plt Count 26 *L, MPV 11.7 H, Gran % 79.2, Gran # 3.9, Lymphocytes % 13.8, Monocytes % 6.0, Eosinophils % 0.8, Basophils % 0.1, Lymphocytes # 0.7, Monocytes # 0.3, Eosinophils # 0.0, Basophils # 0.0, PUBS MCHC 31.4 L, MCH 32.8 H Microbiology 09/19 0925 LEG: Wound Culture - RECD Exam General appearance: sleeping Cardiovascular: irregularly irregular Respiratory: clear to auscultation ABD: non-distended, normal bowel sounds, no rebound, soft, no tenderness, no guarding Extremities: left lower extremity with dressing in place, patient grimaces when palpated, ecchymosis still present, less edema Assessment/Plan Problem List 1. Acute renal failure 2. Acute blood loss anemia 3. Rhabdomyolysis 4. Dehydration 5. Chronic kidney disease (CKD), stage IV (severe) 6. Fall with injury 7. Supratherapeutic INR Status: Resolved 8. Left leg pain 9. Anticoagulant long-term use 10. Cardiomyopathy 11. Rectal prolapse 12. Bladder prolapse 13. History of ASCVD 14. Hiatal hernia with gastroesophageal reflux 15. Macrocytic anemia 16. Thrombocytopenia 17. Osteoporosis 18. Intermittent atrial fibrillation 19. UTI (urinary tract infection) 20. Cellulitis of leg, left 21. Degenerative arthritis of left knee 22. Pelvic floor relaxation Plan: H & H slowly decreasing, renal function improving, ran a fever this am, to work with PT, will discuss making lortab scheduled with Dr. Bryant This inpt stay is expected to cross 2 MNs from start of care Yes at 0811
--- NOTE | 2017-09-20 08:31 | SURGEON PROGRESS NOTE ---
Subjective data Subjective data: Resting. Less responsive over the last 24 hours. Objective data Vitals,I&O,and Labs: Vital signs, intake and output,and available lab data for the last 24 hours is as noted below. Vital Signs Date Time Temp Pulse Resp B/P Pulse O2 O2 Flow FiO2 Ox Delivery Rate 09/20 0740 99.6 104 22 134/75 98 ROOM AIR 09/20 0410 98.9 105 20 128/88 98 ROOM AIR 09/199 99.2 108 22 134/79 98 ROOM AIR 09/19 2006 20 09/19 1956 98.5 90 20 145/70 98 ROOM AIR 09/19 1917 98.5 90 20 145/70 98 09/19 1534 98.1 76 20 106/67 98 ROOM AIR 09/19 1027 98.9 94 20 111/63 95 09/19 1500 09/19 2300 09/20 0700 Intake Total 2320 1390 Output Total 800 1600 Balance 2320 590 -1600 Intake, IV 2320 1390 Output, Urine 800 1600 Patient 64.042 kg Weight Laboratory Tests Test Result Date Time Chemistry Sodium (mmoL/L) 139 09/19 0640 Potassium (mmoL/L) 4.1 09/19 06 Chloride (mmoL/L) 112 09/19 0640 Carbon Dioxide (mmoL/L) 14 09/19 640 BUN (mg/dL) 53 09/19 06 Creatinine (mg/dL) 1.9 09/19 06 Estimated Creat Clear (ML/MIN) 23 09/19 06 Estimated GFR (MDRD) (ML/MIN) 25 09/19 640 Glucose (mg/dL) 87 09/19 0640 Calcium (mg/dL) 7.7 09/19 0640 Iron (send out) (ug/dL) 23 09/15 1435 TIBC (ug/dL) 230 09/15 1435 % Saturation (%) 10 09/15 1435 Unsaturated IBC (ug/dL) 207 09/15 1435 Total Bilirubin (mg/dL) 0.8 09/16 06 AST (U/L) 49 09/16 0610 ALT (U/L) 24 09/16 06 Alkaline Phosphatase (U/L) 74 09/16 06 Creatine Kinase (U/L) 215 09/17 06 CK-MB (CK-2) Rel Index (U/L) 1.3 09/16 610 CK and CKMB Interp (ng/mL) 7.8 09/16 610 Troponin I (ng/mL) 0.11 09/16 610 Total Protein (gm/dL) 5.2 09/16 610 Albumin (gm/dL) 2.1 09/16 610 Globulin (gm/dL) 3.1 09/16 610 Albumin/Globulin Ratio 0.7 09/16 610 Vitamin B12 (pg/mL) 1953 09/15 143 Folate (ng/mL) >20.0 09/15 143 TSH (uIU/ml) 2.40 09/15 143 Coagulation PT (SECONDS) 13.3 09/18 620 INR 1.23 09/18 620 Hematology WBC (K/MM3) 4.9 09/19 1630 RBC (M/mm3) 2.63 09/19 1630 Hgb (g/dL) 8.6 09/19 1630 Hct (%) 27.5 09/19 1630 MCV (fl) 104.4 09/19 1630 RDW (%) 27.0 09/19 1630 Plt Count (K/mm3) 26 09/19 1630 MPV (fl) 11.7 09/19 1630 Gran % (%) 79.2 09/19 1630 Gran # (K/mm3) 3.9 09/19 1630 Total Counted (#CELLS) 100 09/15 1435 Lymphocytes % (%) 13.8 09/19 1630 Monocytes % (%) 6.0 09/19 1630 Eosinophils % (%) 0.8 09/19 1630 Basophils % (%) 0.1 09/19 1630 Neutrophils (%) 85 09/15 1435 Band Neutrophils (%) 3 09/15 1435 Lymphocytes (Manual) (%) 8 09/15 1435 Lymphocytes # (K/mm3) 0.7 09/19 1630 Monocytes (Manual) (%) 4 09/15 143 Monocytes # (K/mm3) 0.3 09/19 1630 Eosinophils # (K/mm3) 0.0 09/19 1630 Basophils # (K/MM3) 0.0 09/19 1630 Platelet Estimate MOD DECREASE 09/15 143 Poikilocytosis 1+ 09/15 143 Anisocytosis 2+ 10/27 1435 Macrocytosis 2+ 09/15 1435 PUBS MCHC (g/dl) 31.4 09/19 163 Immunology Antibody Screen NEGATIVE 09/15 143 MCH (pg) 32.8 09/19 163 Miscellaneous Miscellaneous Test POSITIVE 09/15 1435 Misc Test Units BLOOD UNIT RELEASE 09/16 1257 Toxicology Vancomycin Trough (mcg/mL) 6.6 09/19 0640 Digoxin (ng/mL) 2.35 09/15 143 Urines Urine Color OTHER 09/16 145 Urine Appearance CLOUDY 09/16 145 Urine pH 8.0 09/16 145 Ur Specific [place] 1.015 09/16 145 Urine Protein (mg/dL) 2+ 09/16 145 Urine Ketones (mg/dL) TRACE 09/16 145 Urine Blood 3+ 09/16 145 Urine Nitrate POSITIVE 09/16 1450 Urine Bilirubin 2+ 09/16 1450 Urine Urobilinogen (E.U./dL) 1.0 09/16 145 Ur Leukocyte Esterase 2+ 09/16 1450 Urine RBC (rbc/hpf) 10-20 09/16 1450 Urine WBC (wbc/hpf) 10-20 09/16 145 Ur Squamous Epith Cells (#/hpf) NONE 09/16 1450 Urine Bacteria 1+ 09/16 145 Urine Glucose NEGATIVE 09/16 1450 Assessment findings Assessment Exam General appearance: no acute distress Cardiovascular: regular rate & rhythm Respiratory: no respiratory distress Patient plan Diagnoses: Anemia - no sign of definitive ongoing blood loss Plan: as per primary, possible blood transfusio n at 0830
[2017-09-20 09:52] VITALS: BP 134/75
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
--- NOTE | 2017-09-20 15:15 | ACUTE CARE PROGRESS NOTE ---
Progress note Date: 09/20/17 Assessment: Subjective: Patient is lying on the bed and appears sleepy. Her daughter and son are in the room and they both say, her pain is better controlled but she is still complaining of intermittent bilateral leg pain. Pain is aggravated with movements and pressure. She is not complaining of any distal tingling or numbness. Objective: I reviewed her vital signs, lab results, nursing notes, medical progress notes, medication and also discussed with the nursing staff. Exam General appearance: Alert and oriented. Cardiovascular: Irregularly irregular Respiratory: clear to auscultation ABD: soft, nontender, non-distended. Genitourinary: Huff in place Extremities: On examination of her left lower extremity, there is fading ecchymosis over the leg, ankle and foot. There is small, 1 cm ulceration over the distal anterior leg with small amount of serous discharge. The base of the ulcer looks unhealthy. There is also a second lesion next to it which is not draining. There is moderate swelling and pitting edema 2+ over both the lower extremities below the knee joints. There is some skin wrinkling suggestive of decreasing swelling. The legs are warm and tender to touch. There is no induration. She has good range of active and passive ankle, foot and toe movements. No stretch pain. Distal sensation is intact to light touch. Dorsalis pedis and posterior tibial pulses not palpable in both legs. Capillary refill sluggish bilaterally. Impression: 1. Acute renal failure 2. Acute blood loss anemia 3. Rhabdomyolysis 4. Dehydration 5. Chronic kidney disease (CKD), stage IV (severe) 6. Fall with injury 7. Supratherapeutic INR Status: Resolved 8. Left leg pain 9. Atrial fibrillation Status: Chronic 10. Anticoagulant long-term use 11. Cardiomyopathy 12. Rectal prolapse 13. Bladder prolapse 14. History of ASCVD 15. Hiatal hernia with gastroesophageal reflux 16. Macrocytic anemia 17. Thrombocytopenia 18. Osteoporosis Plan: I reviewed the clinical findings and progress with the patient and her family. Recommend continuation of the IV antibiotics and as needed pain medication. Continue observation for development of compartment syndrome. Medical management as per Dr. Bryant's team. Antibiotic Stewardship (2) Current Culture Results Microbiology 09/19 0948 LEG: Wound Culture - RECD 09/16 1450 URINE CATH: Urine Culture - COMP PROVIDENCIA RETTGERI at 4612
[2017-09-20 16:11] VITALS: BP 121/61
[2017-09-20 20:19] VITALS: BP 119/67
[2017-09-21] VITALS (10 sets, daily range): BP systolic 107–149; BP diastolic 62–113
--- NOTE | 2017-09-21 07:10 | SURGEON PROGRESS NOTE ---
Subjective data Subjective data: The patient is awake and alert and is answering questions. She is drinking coffee and watching television. She has no complaints. Objective data Vitals,I&O,and Labs: Vital signs, intake and output,and available lab data for the last 24 hours is as noted below. Vital Signs Date Time Temp Pulse Resp B/P Pulse O2 O2 Flow FiO2 Ox Delivery Rate 09/21 0614 122/70 09/21 0430 97.4 91 20 135/113 96 ROOM AIR 09/21 0009 98.5 76 18 107/76 97 ROOM AIR 09/20 2105 98.0 79 18 119/67 96 09/20 2019 98.0 79 18 119/67 96 ROOM AIR 09/20 1611 99.4 87 20 121/61 96 ROOM AIR 09/20 1219 22 09/20 0952 99.6 104 22 134/75 98 09/20 0740 99.6 104 22 134/75 98 ROOM AIR 09/20 1500 09/20 2300 09/21 0700 Intake Total 1020 Output Total 600 1800 Balance -600 -780 Intake, IV 1020 Output, Urine 600 1800 Patient 65.459 kg Weight Laboratory Tests Test Result Date Time Chemistry Sodium (mmoL/L) 139 09/19 06 Potassium (mmoL/L) 4.1 09/19 640 Chloride (mmoL/L) 112 09/19 06 Carbon Dioxide (mmoL/L) 14 09/19 640 BUN (mg/dL) 53 09/19 640 Creatinine (mg/dL) 1.9 09/19 640 Estimated Creat Clear (ML/MIN) 23 09/19 640 Estimated GFR (MDRD) (ML/MIN) 25 09/19 640 Glucose (mg/dL) 87 09/19 06 Calcium (mg/dL) 7.7 09/19 640 Iron (send out) (ug/dL) 23 09/15 1435 TIBC (ug/dL) 230 09/15 1435 % Saturation (%) 10 09/15 1435 Unsaturated IBC (ug/dL) 207 09/15 1435 Total Bilirubin (mg/dL) 0.8 09/16 06 AST (U/L) 49 09/16 06 ALT (U/L) 24 09/16 06 Alkaline Phosphatase (U/L) 74 09/16 0610 Creatine Kinase (U/L) 198 09/20 1800 CK-MB (CK-2) Rel Index (U/L) 1.3 09/16 610 CK and CKMB Interp (ng/mL) 7.8 09/16 610 Troponin I (ng/mL) 0.11 09/16 06 Total Protein (gm/dL) 5.2 09/16 610 Albumin (gm/dL) 2.1 09/16 610 Globulin (gm/dL) 3.1 09/16 610 Albumin/Globulin Ratio 0.7 09/16 610 Vitamin B12 (pg/mL) 1953 09/15 143 Folate (ng/mL) >20.0 09/15 143 TSH (uIU/ml) 2.40 09/15 143 Coagulation PT (SECONDS) 13.3 09/18 620 INR 1.23 09/18 620 Hematology WBC (K/MM3) 4.9 09/19 1630 RBC (M/mm3) 2.63 09/19 1630 Hgb (g/dL) 8.6 09/19 1630 Hct (%) 27.5 09/19 1630 MCV (fl) 104.4 09/19 1630 RDW (%) 27.0 09/19 1630 Plt Count (K/mm3) 26 09/19 1630 MPV (fl) 11.7 09/19 1630 Gran % (%) 79.2 09/19 1630 Gran # (K/mm3) 3.9 09/19 163 Total Counted (#CELLS) 100 09/15 1435 Lymphocytes % (%) 13.8 09/19 1630 Monocytes % (%) 6.0 09/19 1630 Eosinophils % (%) 0.8 09/19 1630 Basophils % (%) 0.1 09/19 1630 Neutrophils (%) 85 09/15 143 Band Neutrophils (%) 3 09/15 143 Lymphocytes (Manual) (%) 8 09/15 1435 Lymphocytes # (K/mm3) 0.7 09/19 1630 Monocytes (Manual) (%) 4 09/15 1435 Monocytes # (K/mm3) 0.3 09/19 1630 Eosinophils # (K/mm3) 0.0 09/19 1630 Basophils # (K/MM3) 0.0 09/19 1630 Platelet Estimate MOD DECREASE 09/15 143 Poikilocytosis 1+ 09/15 143 Anisocytosis 2+ 09/15 143 Macrocytosis 2+ 09/15 143 PUBS MCHC (g/dl) 31.4 09/19 163 Immunology Antibody Screen NEGATIVE 09/15 1435 MCH (pg) 32.8 09/19 163 Miscellaneous Miscellaneous Test POSITIVE 09/15 143 Misc Test Units BLOOD UNIT RELEASE 09/16 1257 Toxicology Vancomycin Trough (mcg/mL) 6.6 09/19 0640 Digoxin (ng/mL) 2.35 09/15 143 Urines Urine Color OTHER 09/16 145 Urine Appearance CLOUDY 09/16 145 Urine pH 8.0 09/16 145 Ur Specific [place] 1.015 09/16 145 Urine Protein (mg/dL) 2+ 09/16 145 Urine Ketones (mg/dL) TRACE 09/16 145 Urine Blood 3+ 09/16 145 Urine Nitrate POSITIVE 09/16 145 Urine Bilirubin 2+ 09/16 1450 Urine Urobilinogen (E.U./dL) 1.0 09/16 1450 Ur Leukocyte Esterase 2+ 09/16 1450 Urine RBC (rbc/hpf) 10-20 09/16 1450 Urine WBC (wbc/hpf) 10-20 09/16 145 Ur Squamous Epith Cells (#/hpf) NONE 09/16 1450 Urine Bacteria 1+ 09/16 145 Urine Glucose NEGATIVE 09/16 1450 Assessment findings Assessment Exam General appearance: no acute distress Respiratory: no respiratory distress Patient plan Diagnoses: Anemia - no sign of ongoing blood loss Plan: as per primary at 0710
--- NOTE | 2017-09-21 08:39 | ACUTE CARE PROGRESS NOTE (QUA) ---
See Addendum Progress Notes Subjective Date 09/21/17 Time 0836 Note Patient states she hurts in both legs today. She slept better last night and ate breakfast this morning. She is concerned because she cannot move her legs. Her daughter did bend them and this feels better. She denies any other pain but does feel weak. Objective Findings Last VS-Temp:97.9 B/P:127/62 Pulse:105 Resp:20 SaO2:99 ROOM AIR Last weight lbs:144 oz:5 K.459 Method:Bed Scales Laboratory Tests 09/20/17 1800: Creatine Kinase 198 H Exam General appearance: alert, awake, no acute distress Cardiovascular: irregularly irregular Respiratory: clear to auscultation ABD: non-distended, normal bowel sounds, no rebound, soft, no tenderness, no guarding Extremities: 2+ pretibial edema bilaterally, ecchymosis on RLE with dressing in place Musculoskeletal: both lower legs are ttp Assessment/Plan Problem List 1. Acute renal failure 2. Acute blood loss anemia 3. Rhabdomyolysis 4. Dehydration 5. Chronic kidney disease (CKD), stage IV (severe) 6. Fall with injury 7. Supratherapeutic INR Status: Resolved 8. Left leg pain 9. Atrial fibrillation Status: Chronic 10. Anticoagulant long-term use 11. Cardiomyopathy 12. Rectal prolapse 13. Bladder prolapse 14. History of ASCVD 15. Hiatal hernia with gastroesophageal reflux 16. Macrocytic anemia 17. Thrombocytopenia 18. Osteoporosis Plan: Will repeat labs today and put in an order for ROM exercises for patient's legs. This inpt stay is expected to cross 2 MNs from start of care Yes at 0839 at 0955
[2017-09-21 12:06] LABS: HEMOGLOBIN 9.8 g/dL (12.2-16.2); LYMPH # 0.4 K/mm3 (0.7-4.5); LYMPH % 8.2 % (10-50.0)
[2017-09-21 15:06] LABS: NEUTROPHILS 87 % (42-76)
--- NOTE | 2017-09-21 15:21 | ACUTE CARE PROGRESS NOTE (QUA) ---
Progress Notes Subjective Date 09/21/17 Time 1516 Note 82 yo WF in bed in NAD. Feeling better today. No chest pains. Objective Findings Last VS-Temp:98.4 B/P:120/93 Pulse:105 Resp:20 SaO2:96 ROOM AIR Last weight lbs:144 oz:5 K.459 Method:Bed Scales Exam General appearance: alert, awake, no acute distress Cardiovascular: irregularly irregular Respiratory: poor effort but clear anteriorly Neuro: alert, intact, oriented Reviewed: medications, vital signs, lab results Assessment/Plan Problem List 1. Acute renal failure 2. Acute blood loss anemia 3. Rhabdomyolysis 4. Dehydration 5. Chronic kidney disease (CKD), stage IV (severe) 6. Fall with injury 7. Supratherapeutic INR Status: Resolved 8. Left leg pain 9. Atrial fibrillation Status: Chronic 10. Anticoagulant long-term use 11. Cardiomyopathy Assessment/Plan: Echo shows EF about 45% with mod MR and TR. RV dilatation noted. 12. Rectal prolapse 13. Bladder prolapse 14. History of ASCVD Assessment/Plan: clinically stable. Elevated troponin likely related to acute renal failure. No further workup recommended. 15. Hiatal hernia with gastroesophageal reflux 16. Macrocytic anemia 17. Thrombocytopenia 18. Osteoporosis Patient condition Guarded Plan: Recommend cautious observation of fluids with use of steroids in light of her mild cardiomyopathy and moderate MR. Nothing further to add. Call if needed. This inpt stay is expected to cross 2 MNs from start of care Yes at 1520
--- NOTE | 2017-09-21 16:46 | RADIOLOGY REPORT PS360 ---
PROCEDURE: 2-D M-mode and color Doppler study INDICATIONS FOR THE TEST: Chest pain COPD Heart Murmur Tobacco Smoking Palpitations Fatigue Syncope Edema Hypertension Diabetes Mellitus Rheumatic Fever SOB GREER Obesity Hyperlipidemia Family History HD Additional History CAD, CABG, MV REPAIR 2004, RENAL FAILURE, [place], ANEMIA, PT FLAT ON BACK UNABLE TO ROLL. PATIENT INFORMATION HEIGHT: 59 WEIGHT:141 GENDER: Female B/P:105/54 2-D/M-MODE INTERPRETATION: 2-D MEASUREMENTS OBSERVED VALUES IN CMS Right Ventricular Dimension (RVDd) 2.8 Interventricular Septum (Thickness)(IVsd) 1.1 Left Ventricular Internal Dimensions(LVIDd) 4.9 Left Ventricular Posterior Wall (Thickness)(LVPWd) 0.8 Aortic Root 3.1 Aortic Cusp Separation 1.7 Left Atrial Dimensions (LAD) 5.9 2D 1. Technically difficult study because of the patient's factor and poor acoustic windows, endocardial surfaces are poorly visualized. 2. Moderately enlarged left atrium, normal left ventricular size, there is no concentric left ventricular hypertrophy, visually estimated ejection fraction of 40-45%, with no obvious regional wall motion abnormality, endocardial surfaces are poorly visualized. 3. The right atrium and right ventricle are moderately enlarged, contractility of the right ventricle is mildly reduced. 4. The aortic valve is minimally thickened and fibrosed leaflet continue to display mobility. 5. Mitral valve has mitral annular calcification, there is mitral valve ring present. Leaflets are not well visualized. 6. The tricuspid valve leaflets are minimally thickened. 7. The pulmonic valve is poorly visualized. 8. No significant pericardial effusion noted. DOPPLER INTERROGATION: Doppler interrogation of the aortic, mitral and tricuspid valve reveals presence of moderate mitral and severe tricuspid regurgitation, likely related right ventricular systolic pressure is 67 mmHg consistent with moderate pulmonary hypertension, there is no significant mitral inflow obstruction seen. CONCLUSION: 1. Biatrial enlargement, normal left ventricular size, visually estimated ejection fraction of 40-45%, endocardial surfaces are poorly visualized. 2. Moderately enlarged right ventricle with mild reduced contractility. 3. Status post mitral valve repair, there is no significant mitral inflow obstruction, there is moderate mitral regurgitation. 4. Severe tricuspid regurgitation, calculated right ventricular systolic pressure is 67 mmHg consistent with moderate pulmonary hypertension. 5. No significant pericardial effusion noted.
[2017-09-22] VITALS (7 sets, daily range): BP systolic 110–146; BP diastolic 77–104
--- NOTE | 2017-09-22 06:41 | SURGEON PROGRESS NOTE ---
Subjective data Subjective data: Resting. Objective data Vitals,I&O,and Labs: Vital signs, intake and output,and available lab data for the last 24 hours is as noted below. Vital Signs Date Time Temp Pulse Resp B/P Pulse O2 O2 Flow FiO2 Ox Delivery Rate 09/22 0427 97.7 73 18 146/77 99 ROOM AIR 09/22 0406 18 09/21 2353 97.6 70 18 149/74 99 ROOM AIR 09/21 2100 97.4 92 20 146/75 97 09/21 2058 20 09/21 1950 97.4 92 20 146/75 97 ROOM AIR 09/21 1559 98.1 93 20 130/83 96 ROOM AIR 09/21 1218 20 09/21 1147 98.4 105 20 120/93 96 ROOM AIR 09/21 1007 97.9 105 20 127/62 99 09/21 0817 97.9 105 20 127/62 99 ROOM AIR 09/21 1500 09/21 2300 09/22 0700 Intake Total 720 1439 1148 Output Total 907 150 8161 Balance -180 989 -852 Intake, IV 1439 908 Intake, Oral 720 240 Output, Urine 023 340 6162 Patient 66.338 kg Weight Laboratory Tests Test Result Date Time Chemistry Sodium (mmoL/L) 138 09/21 09 Potassium (mmoL/L) 4.2 09/21 930 Chloride (mmoL/L) 111 09/21 09 Carbon Dioxide (mmoL/L) 13 09/21 930 BUN (mg/dL) 39 09/21 09 Creatinine (mg/dL) 1.5 09/21 930 Estimated Creat Clear (ML/MIN) 31 09/21 930 Estimated GFR (MDRD) (ML/MIN) 33 09/21 0930 Glucose (mg/dL) 250 09/21 09 Calcium (mg/dL) 7.5 09/21 930 Iron (send out) (ug/dL) 23 09/15 1435 TIBC (ug/dL) 230 09/15 1435 % Saturation (%) 10 09/15 1435 Unsaturated IBC (ug/dL) 207 09/15 143 Total Bilirubin (mg/dL) 0.5 09/21 09 AST (U/L) 21 09/21 0930 ALT (U/L) 20 09/21 0930 Alkaline Phosphatase (U/L) 77 11929 Creatine Kinase (U/L) 168 09/21 930 CK-MB (CK-2) Rel Index (U/L) 1.3 09/16 610 CK and CKMB Interp (ng/mL) 7.8 09/16 610 Troponin I (ng/mL) 0.11 09/16 610 Total Protein (gm/dL) 5.9 09/21 930 Albumin (gm/dL) 1.8 09/21 930 Globulin (gm/dL) 4.1 09/21 930 Albumin/Globulin Ratio 0.4 09/21 930 Vitamin B12 (pg/mL) 1953 09/15 1435 Folate (ng/mL) >20.0 09/15 1435 TSH (uIU/ml) 2.40 09/15 1435 Coagulation PT (SECONDS) 13.2 09/21 930 INR 1.22 09/21 930 Hematology WBC (K/MM3) 4.7 09/21 930 RBC (M/mm3) 2.96 09/21 930 Hgb (g/dL) 9.8 09/21 930 Hct (%) 31.4 09/21 930 MCV (fl) 106.0 09/21 930 RDW (%) 26.9 09/21 930 Plt Count (K/mm3) 28 09/21 930 MPV (fl) 10.6 09/21 930 Gran % (%) 85.2 09/21 930 Gran # (K/mm3) 4.0 09/21 930 Total Counted (#CELLS) 100 09/21 930 Lymphocytes % (%) 8.2 09/21 930 Monocytes % (%) 6.3 09/21 930 Eosinophils % (%) 0.1 09/21 930 Basophils % (%) 0.1 09/21 930 Neutrophils (%) 87 09/21 930 Band Neutrophils (%) 3 09/15 143 Lymphocytes (Manual) (%) 5 09/21 930 Lymphocytes # (K/mm3) 0.4 09/21 930 Monocytes (Manual) (%) 8 09/21 930 Monocytes # (K/mm3) 0.3 09/21 930 Eosinophils # (K/mm3) 0.0 09/21 930 Basophils # (K/MM3) 0.0 11/02 0930 Platelet Estimate MARKED DECREASE 09/21 930 Polychromasia 1+ 09/21 930 Poikilocytosis 1+ 09/15 143 Anisocytosis 3+ 09/21 930 Macrocytosis 2+ 09/21 930 [place] Cells 1+ 09/21 930 Acanthocytes (Spur) 2+ 09/21 930 PUBS MCHC (g/dl) 31.3 09/21 930 Immunology Antibody Screen NEGATIVE 09/15 143 MCH (pg) 33.2 09/21 930 Miscellaneous Miscellaneous Test POSITIVE 09/15 1435 Misc Test Units BLOOD UNIT RELEASE 09/16 1257 Toxicology Vancomycin Trough (mcg/mL) 6.6 09/19 640 Digoxin (ng/mL) 2.35 09/15 1435 Urines Urine Color OTHER 09/16 1450 Urine Appearance CLOUDY 09/16 1450 Urine pH 8.0 09/16 1450 Ur Specific [place] 1.015 09/16 1450 Urine Protein (mg/dL) 2+ 09/16 1450 Urine Ketones (mg/dL) TRACE 09/16 145 Urine Blood 3+ 09/16 1450 Urine Nitrate POSITIVE 09/16 145 Urine Bilirubin 2+ 09/16 1450 Urine Urobilinogen (E.U./dL) 1.0 09/16 1450 Ur Leukocyte Esterase 2+ 09/16 1450 Urine RBC (rbc/hpf) 10-20 09/16 1450 Urine WBC (wbc/hpf) -20 09/16 1450 Ur Squamous Epith Cells (#/hpf) NONE 09/16 145 Urine Bacteria 1+ 09/16 145 Urine Glucose NEGATIVE 09/16 145 Assessment findings Assessment Exam General appearance: no acute distress Cardiovascular: regular rate & rhythm Respiratory: no respiratory distress Patient plan Diagnoses: Anemia - stable with no sign of ongoing hemorrhage Plan: continue medical management at 0640
--- NOTE | 2017-09-22 08:44 | ACUTE CARE PROGRESS NOTE (QUA) ---
See Addendum Progress Notes Subjective Date 09/22/17 Time 0841 Note Patient states she is feeling a little bit better today. She has had her legs propped on a pillow and has been able to move her toes and lift her leg slightly. He states the pain has improved. She slept better and has been eating. Objective Findings Last VS-Temp:97.6 B/P:125/84 Pulse:85 Resp:20 SaO2:99 ROOM AIR Last weight lbs:146 oz:4 K.338 Method:Bed Scales Laboratory Tests 09/21/17 0930: Sodium 138, Potassium 4.2, Chloride 111 H, Carbon Dioxide 13 L, BUN 39 H, Creatinine 1.5 H, Estimated Creat Clear 31 L, Estimated GFR (MDRD) 33 L, Glucose 250 H, Calcium 7.5 L, Total Bilirubin 0.5, AST 21, ALT 20, Alkaline Phosphatase 77, Creatine Kinase 168, Total Protein 5.9 L, Albumin 1.8 L, Globulin 4.1 H, Albumin/Globulin Ratio 0.4 L, PT 13.2 H, INR 1.22 H, WBC 4.7 L, RBC 2.96 L, Hgb 9.8 L, Hct 31.4 L, MCV 106.0 H, RDW 26.9 *H, Plt Count 28 *L, MPV 10.6 H, Gran % 85.2 H, Gran # 4.0, Total Counted 100, Lymphocytes % 8.2 L, Monocytes % 6.3, Eosinophils % 0.1, Basophils % 0.1, Neutrophils 87 H, Lymphocytes (Manual) 5 L, Lymphocytes # 0.4 L, Monocytes (Manual) 8, Monocytes # 0.3, Eosinophils # 0.0, Basophils # 0.0, Platelet Estimate MARKED DECREASE, Polychromasia 1+, Anisocytosis 3+, Macrocytosis 2+, [place] Cells 1+, Acanthocytes (Spur) 2+, PUBS MCHC 31.3 L, MCH 33.2 H Exam General appearance: alert, awake, no acute distress Cardiovascular: irregularly irregular Respiratory: clear to auscultation ABD: non-distended, normal bowel sounds, no rebound, soft, no tenderness, no guarding Extremities: 2+ pretibial edema bilaterally Musculoskeletal: pt able to wiggle toes and slightly lift legs Skin: left leg still with ecchymosis and dressing in place Assessment/Plan Problem List 1. Acute renal failure 2. Acute blood loss anemia 3. Rhabdomyolysis 4. Dehydration 5. Chronic kidney disease (CKD), stage IV (severe) 6. Fall with injury 7. Supratherapeutic INR Status: Resolved 8. Left leg pain 9. Atrial fibrillation Status: Chronic 10. Anticoagulant long-term use 11. Cardiomyopathy 12. Rectal prolapse 13. Bladder prolapse 14. History of ASCVD 15. Hiatal hernia with gastroesophageal reflux 16. Macrocytic anemia 17. Thrombocytopenia 18. Osteoporosis Plan: Pt improving. Will discuss further care with Dr. Bryant. This inpt stay is expected to cross 2 MNs from start of care Yes at 0844 at 0911
[2017-09-22 16:37] LABS: Vit. B1, Whole Blood 127.5 nmol/L (66.5-200.0)
[2017-09-23] VITALS (8 sets, daily range): BP systolic 107–150; BP diastolic 74–98
--- NOTE | 2017-09-23 12:17 | ACUTE CARE PROGRESS NOTE (QUA) ---
Progress Notes Subjective Date 09/23/17 Time 1212 Note Has continued slow progress since institution of steroids. Actually walked with assistance of PT yesterday. Objective Findings Last VS-Temp:97.6 B/P:130/89 Pulse:108 Resp:20 SaO2:96 ROOM AIR Last weight lbs:146 oz:4 K.338 Method:Bed Scales Exam General appearance: alert, no acute distress Eyes: anicteric ENT: mucous membranes moist Cardiovascular: irregularly irregular Respiratory: clear to auscultation ABD: soft, no tenderness Genitourinary: normal voiding & quantity (has cleared) Extremities: less edema, not as tender. I wanted BOTH legs wrapped, but only has the left wrapped Musculoskeletal: equal muscle strength Skin: dry, intact Neuro: oriented, speech clear Reviewed: medications, vital signs, lab results Assessment/Plan Problem List 1. Acute renal failure 2. Acute blood loss anemia 3. Rhabdomyolysis 4. Dehydration 5. Chronic kidney disease (CKD), stage IV (severe) 6. Fall with injury 7. Supratherapeutic INR Status: Resolved 8. Left leg pain 9. Atrial fibrillation Status: Chronic 10. Anticoagulant long-term use 11. Cardiomyopathy 12. Rectal prolapse 13. Bladder prolapse 14. History of ASCVD 15. Hiatal hernia with gastroesophageal reflux 16. Macrocytic anemia 17. Thrombocytopenia 18. Osteoporosis Patient condition Improving Plan: continue current care This inpt stay is expected to cross 2 MNs from start of care Yes at 1217
--- NOTE | 2017-09-23 13:00 | CONSULT NOTE ---
Pharmacokinetic Consult Date of consult: 09/23/17 Time of consult: 1259 Referring provider: DR. CONTRERAS Reason for consult: VANCOMYCIN TROUGH Allergies: Coded Allergies: No Known Drug Allergies (04/27/16) cefdinir (09/15/17) Home Medications: Reported Medications FOLIC ACID (Folic Acid) 1 MG PO DAILY Ferrous Sulfate (Ferrous Sulfate 325MG) 325 MG PO TID Atorvastatin Calcium (Lipitor 10MG) 10 MG PO QHS ALLOPURINOL (Allopurinol 100MG) 100 MG PO DAILY WARFARIN SOD (Warfarin 1MG) 2.5 MG PO DAILY DIGOXIN (Digox) 0.125 MG PO DAILY Levothyroxine Sodium (Levothyroxine 0.1MG) 0.1 MG PO DAILY Spironolactone (Spironolactone) 25 MG NG BID ACETAMINOPHEN WITH CODEINE (Tylenol With Codeine #3 Tablet) 1 TAB PO QHS CHOLECALCIFEROL (VITAMIN D3) (Vitamin D3) 1,000 IUNITS PO DAILY Metolazone (Metolazone 2.5MG) 2.5 MG PO BID Gabapentin (Gabapentin 100MG) 100 MG PO DAILY Gabapentin (Gabapentin 100MG) 200 MG PO QHS DIPHENOXYLATE HCL/ATROPINE (Lomotil 2.5-0.025 MG Tablet) 1 TAB PO QIDP PRN DIARRHEA NITROGLYCERIN (Nitrostat) 0.4 MG SL [id number] PRN CHEST PAIN PRAMIPEXOLE DIHYDROCHLORIDE MO (Pramipexole) 0.5 MG NG QHS Height (feet): 4 Height (inches): 11.00 Medical History: CAD? Yes Angina: Yes [place]: Yes Hypertension? Yes Hyperlipidemia? No CHF? Yes DVT? No PE? No COPD? No Asthma? No Anemia? Yes GERD? No Hernia? No Thyroid Problems? Yes Hypothyroidism? Yes CVA? No Seizures? No Diabetes? No UTI? No Stones? No GB Disease: No Hepatitis? No Cataracts? No Glaucoma? No MRSA? No TB? No Cancer? No More? No Additional hx: 1. Paroxysmal afib 2. Right Hip fx 3. Osteoporosis both hips Labs: Laboratory Tests 09/23/17 0905: Sodium 137, Potassium 3.5, Chloride 107, Carbon Dioxide 16 L, BUN 41 H, Creatinine 1.3 H, Estimated Creat Clear 36 L, Estimated GFR (MDRD) 39 L, Glucose 191 H, Calcium 7.1 L, Total Bilirubin 0.4, AST 20, ALT 23, Alkaline Phosphatase 72, Total Protein 5.6 L, Albumin 2.0 L, Globulin 3.6 H, Albumin/ Globulin Ratio 0.6 L, Vancomycin Trough 9.3 L Plan: BASED ON PATIENT FACTORS AND CURRENT TROUGH LEVEL, RECOMMEND INCREASING THE CURRENT DOSE OF VANCOMYCIN TO EVERY 36 HOURS. PHARMACY WILL CONTINUE TO MONITOR AND ADJUST DOSE APPROPRIATE. at 1300
--- NOTE | 2017-09-23 13:00 | CONSULT NOTE ---
Pharmacokinetic Consult Date of consult: 09/23/17 Time of consult: 1259 Referring provider: DR. CONTRERAS Reason for consult: VANCOMYCIN TROUGH Allergies: Coded Allergies: No Known Drug Allergies (04/27/16) cefdinir (09/15/17) Home Medications: Reported Medications FOLIC ACID (Folic Acid) 1 MG PO DAILY Ferrous Sulfate (Ferrous Sulfate 325MG) 325 MG PO TID Atorvastatin Calcium (Lipitor 10MG) 10 MG PO QHS ALLOPURINOL (Allopurinol 100MG) 100 MG PO DAILY WARFARIN SOD (Warfarin 1MG) 2.5 MG PO DAILY DIGOXIN (Digox) 0.125 MG PO DAILY Levothyroxine Sodium (Levothyroxine 0.1MG) 0.1 MG PO DAILY Spironolactone (Spironolactone) 25 MG NG BID ACETAMINOPHEN WITH CODEINE (Tylenol With Codeine #3 Tablet) 1 TAB PO QHS CHOLECALCIFEROL (VITAMIN D3) (Vitamin D3) 1,000 IUNITS PO DAILY Metolazone (Metolazone 2.5MG) 2.5 MG PO BID Gabapentin (Gabapentin 100MG) 100 MG PO DAILY Gabapentin (Gabapentin 100MG) 200 MG PO QHS DIPHENOXYLATE HCL/ATROPINE (Lomotil 2.5-0.025 MG Tablet) 1 TAB PO QIDP PRN DIARRHEA NITROGLYCERIN (Nitrostat) 0.4 MG SL [id number] PRN CHEST PAIN PRAMIPEXOLE DIHYDROCHLORIDE MO (Pramipexole) 0.5 MG NG QHS Height (feet): 4 Height (inches): 11.00 Medical History: CAD? Yes Angina: Yes [place]: Yes Hypertension? Yes Hyperlipidemia? No CHF? Yes DVT? No PE? No COPD? No Asthma? No Anemia? Yes GERD? No Hernia? No Thyroid Problems? Yes Hypothyroidism? Yes CVA? No Seizures? No Diabetes? No UTI? No Stones? No GB Disease: No Hepatitis? No Cataracts? No Glaucoma? No MRSA? No TB? No Cancer? No More? No Additional hx: 1. Paroxysmal afib 2. Right Hip fx 3. Osteoporosis both hips Labs: Laboratory Tests 09/23/17 0905: Sodium 137, Potassium 3.5, Chloride 107, Carbon Dioxide 16 L, BUN 41 H, Creatinine 1.3 H, Estimated Creat Clear 36 L, Estimated GFR (MDRD) 39 L, Glucose 191 H, Calcium 7.1 L, Total Bilirubin 0.4, AST 20, ALT 23, Alkaline Phosphatase 72, Total Protein 5.6 L, Albumin 2.0 L, Globulin 3.6 H, Albumin/ Globulin Ratio 0.6 L, Vancomycin Trough 9.3 L Plan: BASED ON PATIENT FACTORS AND CURRENT TROUGH LEVEL, RECOMMEND INCREASING THE CURRENT DOSE OF VANCOMYCIN TO EVERY 36 HOURS. PHARMACY WILL CONTINUE TO MONITOR AND ADJUST DOSE APPROPRIATE. at 1300
--- NOTE | 2017-09-23 14:50 | ACUTE CARE PROGRESS NOTE ---
Progress note Date: 09/23/17 Assessment: Subjective: Patient is lying on the bed and appears comfortable. Her daughter is in the room. Patient says that she is feeling a lot better and her pain is well controlled with medication. Her daughter says she mobilized a little bit with help of physical therapy yesterday. She also mentioned that she developed a blister over the lateral aspect of the lower leg which ruptured when she was getting out of the chair. She is not complaining of any distal tingling or numbness. No history of any fevers, chills or rigors. Objective: I reviewed her vital signs, lab results, nursing notes, medical progress notes, medication and also discussed with the nursing staff. Exam General appearance: Alert and oriented. Cardiovascular: Irregularly irregular Respiratory: clear to auscultation ABD: soft, nontender, non-distended. Genitourinary: Huff in place Extremities: On examination of her left lower extremity, there is fading ecchymosis over the leg, ankle and foot. There are dressings over her left leg are clean, dry and intact. There is moderate swelling and pitting edema 1+ over both the lower extremities below the knee joints. The legs are warm and tender to touch. There is no induration. She has good range of active and passive ankle, foot and toe movements. No stretch pain. Distal sensation is intact to light touch. Dorsalis pedis and posterior tibial pulses not palpable in both legs. Capillary refill sluggish bilaterally. Impression: 1. Acute renal failure 2. Acute blood loss anemia 3. Rhabdomyolysis 4. Dehydration 5. Chronic kidney disease (CKD), stage IV (severe) 6. Fall with injury 7. Supratherapeutic INR Status: Resolved 8. Left leg pain 9. Atrial fibrillation Status: Chronic 10. Anticoagulant long-term use 11. Cardiomyopathy 12. Rectal prolapse 13. Bladder prolapse 14. History of ASCVD 15. Hiatal hernia with gastroesophageal reflux 16. Macrocytic anemia 17. Thrombocytopenia 18. Osteoporosis Plan: I reviewed the clinical findings and progress with the patient and her family. Recommend continuation of the current management. Continue mobilization weightbearing as tolerated. Wound care team referral for management of the leg ulcers. From an orthopedic point of view patient can be discharged and the wounds could be managed by wound care team on an outpatient basis. Medical management as per Dr. Bryant's team. Antibiotic Stewardship (2) Current Culture Results Microbiology 09/19 09 LEG: Wound Culture - COMP STAPHYLOCOCCUS AUREUS at 0824
[2017-09-24] VITALS (8 sets, daily range): BP systolic 127–155; BP diastolic 70–87
--- NOTE | 2017-09-24 09:27 | ACUTE CARE PROGRESS NOTE (QUA) ---
Progress Notes Subjective Date 09/24/17 Time 0923 Note She is feeling much better. Her blood chemistries and complete blood count look much better. She has less leg edema. She still has wounds of her LEFT lower leg. Objective Findings Last VS-Temp:98.5 B/P:155/87 Pulse:78 Resp:20 SaO2:98 ROOM AIR Last weight lbs:146 oz:4 K.338 Method:Bed Scales Exam General appearance: alert, no acute distress Eyes: anicteric ENT: mucous membranes moist Cardiovascular: irregularly irregular Respiratory: clear to auscultation ABD: soft, no tenderness Genitourinary: catheter in place Extremities: [place] wrapped, less edema bilaterally. Neuro: oriented, speech clear Reviewed: medications, vital signs, lab results Assessment/Plan Problem List 1. Acute renal failure 2. Acute blood loss anemia 3. Rhabdomyolysis 4. Dehydration 5. Chronic kidney disease (CKD), stage IV (severe) 6. Fall with injury 7. Supratherapeutic INR Status: Resolved 8. Left leg pain 9. Atrial fibrillation Status: Chronic 10. Anticoagulant long-term use 11. Cardiomyopathy 12. Rectal prolapse 13. Bladder prolapse 14. History of ASCVD 15. Hiatal hernia with gastroesophageal reflux 16. Macrocytic anemia 17. Thrombocytopenia 18. Osteoporosis Patient condition Improving Plan: plan for discharge tomorrow. Wound care may be an issue. This inpt stay is expected to cross 2 MNs from start of care Yes at 0963
[2017-09-25 05:26] VITALS: BP 145/90
[2017-09-25 08:30] VITALS: BP 95/59
[2017-09-25 09:40] VITALS: BP 95/59
[2017-09-25] MEDS ORDERED: FENTANYL TR25 MCG/HR TD (13:26)
[2017-09-25] MEDS ORDERED: LEVAQUIN250 M1 PO (13:27)
[2017-09-25] MEDS ORDERED: HYDROCODONE/APA1 TA8 PO (13:28)
--- NOTE | 2017-09-25 13:32 | ACUTE CARE PROGRESS NOTE (QUA) ---
Progress Notes Subjective Date 09/25/17 Time 1329 Note She is stable and anxious to go home. Still with leg pain, still with wounds of the left leg. Objective Findings Last VS-Temp:97.4 B/P:95/59 Pulse:41 Resp:18 SaO2:97 ROOM AIR Last weight lbs:146 oz:4 K.338 Method:Bed Scales Exam General appearance: alert, no acute distress Eyes: anicteric ENT: mucous membranes moist Cardiovascular: irregularly irregular Respiratory: good air movement, no respiratory distress ABD: soft, no tenderness Genitourinary: catheter in place Extremities: less edema, less pain, wounds healing Skin: dry, intact Neuro: intact Reviewed: medications, vital signs, lab results Assessment/Plan Problem List 1. Acute renal failure 2. Acute blood loss anemia 3. Rhabdomyolysis 4. Dehydration 5. Chronic kidney disease (CKD), stage IV (severe) 6. Fall with injury 7. Supratherapeutic INR Status: Resolved 8. Left leg pain 9. Atrial fibrillation Status: Chronic 10. Anticoagulant long-term use 11. Cardiomyopathy 12. Rectal prolapse 13. Bladder prolapse 14. History of ASCVD 15. Hiatal hernia with gastroesophageal reflux 16. Macrocytic anemia 17. Thrombocytopenia 18. Osteoporosis Patient condition Stable Plan: initiate discharge plan This inpt stay is expected to cross 2 MNs from start of care Yes at 1332
[2017-09-25 15:08] VITALS: BP 95/59
--- NOTE | 2017-09-26 14:13 | DISCHARGE SUMMARY STANDARD ---
Discharge Summary (A2) Date of admission: 09/15/17 Date of discharge: 09/25/17 Problem List: 1. Acute renal failure 2. Acute blood loss anemia 3. Rhabdomyolysis 4. Dehydration 5. Chronic kidney disease (CKD), stage IV (severe) 6. Fall with injury 7. Supratherapeutic INR 8. Left leg pain 9. Atrial fibrillation 10. Anticoagulant long-term use 11. Cardiomyopathy 12. Rectal prolapse 13. Bladder prolapse 14. History of ASCVD 15. Hiatal hernia with gastroesophageal reflux 16. Macrocytic anemia 17. Thrombocytopenia 18. Osteoporosis History of present illness: Ms. Solis is an 82 yo female who was directly admitted from [facility]. She was found on the floor after a fall the previous day. She was on the floor for greater than an hour. She appeared dehydrated in the office and was c/o pain in her back and left leg particularly. The left leg had edema and eccymosis. She was admitted for further evaluation and treatment. She has a hx of chronic A-fib, osteoporosis, and renal insufficiency. Her family stated she had been sleeping more than normal for the past few weeks and had not been eating and drinking well. Exam on admission: General appearance: awake, does not appear to feel well Eyes: PERRLA ENT: nose normal, pharynx normal, dry mucous membranes Neck: non-tender, full range of motion, supple Cardiovascular: irregularly irregular Respiratory: clear to auscultation ABD: non-distended, normal bowel sounds, no rebound, soft, no tenderness, no guarding Genitourinary: prolapsed rectum and bladder Extremities: bilateral lower extremity edema, worse on the left Musculoskeletal: ttp of entire left lower leg, pain with any movement of the leg Skin: ecchymosis of entire lower left leg, there are also ecchymoses on the bilateral arms from fall Neuro: normal mood/affect, oriented, speech clear Hospital Course: The patient was in renal failure and was anemic. She does have stage IV chronic renal failure and is followed by Dr. Miller. She also has a hx of afib and is followed by Dr. Nayak. Her BP continued to drop therefore, she was started on IVF boluses and was transfused. She also received vitamin K for a supratherapeutic INR. Her CPK was elevated indicating some degree of rhabdomyolysis. She had a rectal and bladder prolapse once she arrived on the floor. Dr. Hinton was able to reduce the prolapsed bladder and rectum, however, the rectum prolapsed again. He therefore consulted surgery. Her H&H initally improved but then dropped again. There was some concern for intra-abdominal bleeding, therefore a CT was ordered. It did not show any intra -abdominal bleeding, but did show the rectal and vaginal prolapse and cholelithiasis. Dr. Cotton felt there was no definitive sign that she had any gastrointestinal hemorrhage. Considering her comorbid conditions, the risks of endoscopy likely outweighed the benefits. UGI/SBFT and barium enema could be considered in the future to evaluate for possible large lesion/mass. Her INR improved and she continued to be transfused. The x-ray of her leg was negative but d/t the swelling and ecchymosis as well as the pain, there was some concern for compartment syndrome, therefore ortho was consulted. Dr. Brooke did not feel she had compartment sydnrome and recommended monitoring. Her renal function improved as did her INR. Her H&H remained stable after transfusions. It appeared she had a UTI, therefore levaquin was added. Her urine cx came back positive for providencia rettgeri and it was sensitive to levaquin. She continued to c/o leg pain and muscle spasms. She was started on baclofen. She continued to c/o pain and pain medication orally was not helping. She did finally receive some relief with a fentanyl patch. She was able to start eating and physical therapy was consulted. The patient would not participate d/t pain. Dr. Bryant ordered lortab and scheduled the dose, however the patient would not take it as scheduled. Cardiology was consulted to evaluate the reason for the patient's initial fall. She did have an elevated troponin and a known hx of CAD and previous MA. Cardiology ordered an echo. It showed an EF of 45% with moderate MR and TR. They felt her elevated troponin was likely d/t acute renal failure and recommended no further workup. She continued with leg pain and was unable to move her legs. Dr. Bryant started her on some steroids and this did help. She was able to do some ROM exercises with the nursing staff. Her CPK was again ordered with the thought of possible polymyositis, however it was almost back to normal. Physical therapy was consulted again and the patient was actually able to walk with assistance. By 09/25/17, the patient was feeling much better, her labs had all improved and she was anxious to go home. She still had some leg pain and wounds on the left leg. Home health would follow her at home and she would f/u at [facility] in a week. Discharge medications: Continue taking these medications: FOLIC ACID (Folic Acid) 1 MG TABLET 1 MILLIGRAM ORAL DAILY Ferrous Sulfate (Ferrous Sulfate 325MG) 325 MG TABLET 325 MILLIGRAM ORAL THREE TIMES A DAY Atorvastatin Calcium (Lipitor 10MG) 10 MG TABLET 10 MILLIGRAM ORAL AT BEDTIME NIGHTLY ALLOPURINOL (Allopurinol 100MG) 100 MG TABLET 100 MILLIGRAM ORAL DAILY WARFARIN SOD (Warfarin 1MG) 1 MG TABLET 2.5 MILLIGRAM ORAL DAILY DIGOXIN (Digox) 125 MCG TABLET 0.125 MILLIGRAM ORAL DAILY PRAMIPEXOLE DIHYDROCHLORIDE MO (Pramipexole) 0.25 MG TABLET 0.5 MILLIGRAM NASOGASTRIC TUBE AT BEDTIME NIGHTLY Levothyroxine Sodium (Levothyroxine 0.1MG) 100 MCG TABLET 0.1 MILLIGRAM ORAL DAILY Spironolactone (Spironolactone) 25 MG TABLET 25 MILLIGRAM NASOGASTRIC TUBE TWICE A DAY DIPHENOXYLATE HCL/ATROPINE (Lomotil 2.5-0.025 MG Tablet) 1 EACH TABLET 1 TABLET ORAL FOUR TIMES A DAY NEEDED as needed for DIARRHEA ACETAMINOPHEN WITH CODEINE (Tylenol With Codeine #3 Tablet) 1 EACH TABLET 1 TABLET ORAL AT BEDTIME NIGHTLY NITROGLYCERIN (Nitrostat) 0.4 MG TAB.SUBL 0.4 MILLIGRAM SUBLINGUAL EVERY FIVE MINUTES NEEDED as needed for CHEST PAIN CHOLECALCIFEROL (VITAMIN D3) (Vitamin D3) 1,000 UNIT TABLET 1,000 INT. UNITS ORAL DAILY Metolazone (Metolazone 2.5MG) 2.5 MG TABLET 2.5 MILLIGRAM ORAL TWICE A DAY Gabapentin (Gabapentin 100MG) 100 MG CAPSULE 100 MILLIGRAM ORAL DAILY Gabapentin (Gabapentin 100MG) 100 MG CAPSULE 200 MILLIGRAM ORAL AT BEDTIME NIGHTLY Start taking the following new medications: Fentanyl (Fentanyl) 1 EACH PATCH.TD72 25 MICROGRAM TRANSDERM Q72H Qty = 10 No Refills HYDROCODONE/ACETAMINOPHEN (LORTAB 5-325 (generic)) 1 EACH TABLET 1 TABLET ORAL EVERY 8 HOURS NEEDED Qty = 15 No Refills Levofloxacin (Levaquin) 250 MG TABLET 250 MILLIGRAM ORAL 1100 Qty = 5 No Refills Disposition: F/U with: AMY TERRY APRN Follow up: next week Activity: Limited activity Diet: Continue same diet Discharge to: HOME Agency needed? Y Specify: HOME HEALTH at [id number]
== END 2017-09-25 16:28 | disposition home health service (06) | DRG 683 ==
LOC: 2ND 12:40
PROVIDERS: Family Medicine
PROC: 30233N1 Transfusion of Nonautologous Red Blood Cells into Peripheral Vein, Percutaneous Approach (ICD-10-PCS; principal; 2017-09-16)
DX: I12.9 Hypertensive chronic kidney disease with stage 1 through stage 4 chronic kidney disease, or unspecified chronic kidney disease (principal); N18.4 Chronic kidney disease, stage 4 (severe); I48.2 Chronic atrial fibrillation; I42.9 Cardiomyopathy, unspecified; E86.0 Dehydration; N17.9 Acute kidney failure, unspecified; D63.1 Anemia in chronic kidney disease; D53.9 Nutritional anemia, unspecified; K62.2 Anal prolapse; I25.10 Atherosclerotic heart disease of native coronary artery without angina pectoris; N39.0 Urinary tract infection, site not specified; Z79.01 Long term (current) use of anticoagulants; B96.4 Proteus (mirabilis) (morganii) as the cause of diseases classified elsewhere; Z95.1 Presence of aortocoronary bypass graft; W18.30XA Fall on same level, unspecified, initial encounter
CPT/HCPCS: J3370; P9016

== ENCOUNTER 2017-10-06 12:12 | Emergency (ER) | payer MEDICARE, OTHER ==
[~2017-10-06] VITALS: Ht 149.9 cm; Wt 61.2 kg
[~2017-10-06 12:12] MED LIST changes: +FENTANYL TR25 MCG/HR TD; +GABAPENTIN 100100 MG PO; +GABAPENTIN100 M1 PO; +HYDROCODONE/APA1 TA8 PO; +LANOXIN0.125 MG PO; +LEVAQUIN250 M1 PO; +LEVOTHYROXINE0.1 M1 PO; +LOMOTIL 0.025 M1 TAB PO; +METOPROLOL SUCC50 M4 PO; +NITROGLYCERIN0.4 MG SL; +PRAMIPEXOLE D0.25 MG NG; +SPIRONOLACTONE25 MG NG; +TOPROL XL 100M100 MG PO; +TYLENOL WITH CO1 TA1 PO; +VITAMIN D1000 IU PO
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
--- OUTSIDE RECORDS SUMMARY | 2017-10-06 12:57 | External Medical Summary Rpt | CCD ---
Author Author , TRA DUTTA Address Unknown Phone [email or web address] Purpose Continuity of Care Document - 04-19-2017 through 2016 Problems Code Diagnosis DOS Provider Status N18.4 CHRONIC KIDNEY DISEASE, STAGE 4 (SEVERE) Results Labs Lab Lab Date Result Refere Interp Status Commen Order Detail nces retati t Range on Comprehensive metabolic panel (09-23-2017 09:05) Carbon = 16 21.0-32 complet dioxide 017 mmoL/L .0 ed 09:05 measure ment Serum = 1.3 0.55-1. complet or 017 mg/dL 02 ed plasma 09:05 creatin ine measure ment ( Estimat = 36 50-200 complet ion of 017 ML/MIN ed creatin 09:05 ine renal clearan ce Estimat = 39 59- complet ed 017 ML/MIN ed glomeru 09:05 lar filtrat ion rate (GF Comment: REFERENCE RANGE: >60 ML/MIN/1.73 SQUARE METERS Comment: If this patient is -Swazi, then multiply the Comment: result by 1.210. Serum = 3.6 1.3-3.2 complet globuli 017 gm/dL ed n 09:05 measure ment (mass/v olume) Serum = 191 74-106 complet or 017 mg/dL ed plasma 09:05 glucose measure ment (mas Serum = 3.5 3.5-5.1 complet potassi 017 mmoL/L ed um 09:05 measure ment Serum = 137 136-145 complet sodium 017 mmoL/L ed measure 09:05 ment Serum = 20 15-37 complet or 017 U/L ed plasma 09:05 asparta te aminotr ansfera ALT = 23 12-78 complet (SGPT) 017 U/L ed ser/tommy 09:05 s Protein = 5.6 6.4-8.2 complet total 017 gm/dL ed ser/tommy 09:05 s Serum = 107 98-107 complet or 017 mmoL/L ed plasma 09:05 chlorid e measure ment (mo Serum = 7.1 8.5-10. complet or 017 mg/dL 1 ed plasma 09:05 calcium measure ment (mas Serum = 41 7-18 complet or 017 mg/dL ed plasma 09:05 urea nitroge n measure men Serum = 0.4 0.2-1.0 complet or 017 mg/dL ed plasma 09:05 total bilirub in measure m Serum = 0.6 1.1-1.8 complet or 017 ed plasma 09:05 albumin /globul in mass ra Serum = 72 46-116 complet or 017 U/L ed plasma 09:05 alkalin e phospha tase vale Serum = 2.0 3.4-5.0 complet or 017 gm/dL ed plasma 09:05 albumin measure ment (mas Vancomycin trough (09-23-2017 09:05) Vancomy = 9.3 10.0-20 complet lily 017 mcg/mL .0 ed trough 09:05 Comment: Comment: RESULTS CALLED TO PHARMACIST: JHOAN Mcconnell Comment: 09/23/17 0935 Kanwal Perez Whole blood INR measurement (09-21-2017 09:30) Comment: IS PATIENT ON ANTICOAGULANTS? Y Comment: LIST ANTICOAGULANTS: Comment: COUMADIN Comment: PTT RESULTS MUST BE CALLED IF PT ON HEPARIN!!! Y Prothro = 13.2 9.4-11. complet mbin 017 SECONDS 8 ed time 09:30 (PT) in platele t poor p Whole = 1.22 0.9-1.1 complet blood 017 ed INR 09:30 measure ment Comment: INDICATION INR RANGE Comment: Comment: THERAPY FOR DVT, PE, ATRIAL FIB; 2.0 - 3.0 Comment: PROPHYLAXIS FOR VTE Comment: Comment: THERAPY FOR MECHANICAL HEART 2.5 - 3.5 Comment: VALVE; PREVENTION OF SYSTEMIC Comment: EMBOLISM SECONDARY TO AMI Serum or plasma creatine kinase measurem (09-21-2017 09:30) Serum = 168 26-192 complet or 017 U/L ed plasma 09:30 creatin e kinase measure m Comprehensive metabolic panel (09-21-2017 09:30) Protein = 5.9 6.4-8.2 complet total 017 gm/dL ed ser/tommy 09:30 s ALT = 20 12-78 complet (SGPT) 017 U/L ed ser/tommy 09:30 s Serum = 21 15-37 complet or 017 U/L ed plasma 09:30 asparta te aminotr ansfera Serum = 138 136-145 complet sodium 017 mmoL/L ed measure 09:30 ment Serum = 4.2 3.5-5.1 complet potassi 017 mmoL/L ed um 09:30 measure ment Serum = 250 74-106 complet or 017 mg/dL ed plasma 09:30 glucose measure ment (mas Serum = 4.1 1.3-3.2 complet globuli 017 gm/dL ed n 09:30 measure ment (mass/v olume) Estimat = 33 59- complet ed 017 ML/MIN ed glomeru 09:30 lar filtrat ion rate (GF Comment: REFERENCE RANGE: >60 ML/MIN/1.73 SQUARE METERS Comment: If this patient is -Swazi, then multiply the Comment: result by 1.210. Estimat = 31 50-200 complet ion of 017 ML/MIN ed creatin 09:30 ine renal clearan ce Serum = 1.5 0.55-1. complet or 017 mg/dL 02 ed plasma 09:30 creatin ine measure ment ( Carbon = 13 21.0-32 complet dioxide 017 mmoL/L .0 ed 09:30 measure ment Serum = 111 98-107 complet or 017 mmoL/L ed plasma 09:30 chlorid e measure ment (mo Serum = 7.5 8.5-10. complet or 017 mg/dL 1 ed plasma 09:30 calcium measure ment (mas Serum = 39 7-18 complet or 017 mg/dL ed plasma 09:30 urea nitroge n measure men Serum = 0.5 0.2-1.0 complet or 017 mg/dL ed plasma 09:30 total bilirub in measure m Serum = 77 46-116 complet or 017 U/L ed plasma 09:30 alkalin e phospha tase vale Serum = 1.8 3.4-5.0 complet or 017 gm/dL ed plasma 09:30 albumin measure ment (mas Serum = 0.4 1.1-1.8 complet or 017 ed plasma 09:30 albumin /globul in mass ra Differential panel, method unspecified - (09-21-2017 09:30) Blood = 100 complet total 017 #CELLS ed cell 09:30 count Neutrop = 87 % 42-76 complet hil 017 ed count 09:30 Blood 1+ 1+ L complet polychr 017 ed omasia 09:30 detecti on by light m Platele MARKED complet t 017 DECREAS ed estimat 09:30 E e MARKED DECREAS E L Monocyt = 8 % 2-9 complet e % 017 ed 09:30 Macrocy 2+ 2+ L complet carrie 017 ed detecti 09:30 on LYMPH 5 % 10-50 complet 017 ed 09:30 Blood 1+ 1+ L complet nanci 017 ed cells 09:30 detecti on by light micr Blood 3+ 3+ L complet anisocy 017 ed tosis 09:30 detecti on Acantho 2+ 2+ L complet cyte 017 ed detecti 09:30 on CBC w auto diff (09-21-2017 09:30) Baso % = 0.1 % 0.1-2.0 complet 017 ed 09:30 Automat = 0.0 0-0.2 complet ed 017 K/MM3 ed blood 09:30 basophi l count (count/ vo Blood = 4.7 4.8-10. complet leukocy 017 K/MM3 8 ed carrie 09:30 count (number /volume ) Automat = 26.9 11.5-17 complet ed 017 % .5 ed erythro 09:30 cyte distrib ution width Red = 2.96 4.2-5.4 complet blood 017 M/mm3 ed cell 09:30 count Blood = 28 142-424 complet platele 017 K/mm3 ed t count 09:30 Comment: NOTIFICATION RESULT Comment: Rebeca Automat = 10.6 7.4-10. complet ed 017 fl 4 ed blood 09:30 platele t mean volume vale [place] % = 6.3 % 1.7-9.3 complet 017 ed 09:30 Absolut = 0.3 0.1-1.0 complet e 017 K/mm3 ed monocyt 09:30 e count Automat = 106.0 82.2-97 complet ed 017 fl .8 ed erythro 09:30 cyte mean corpusc ular v Automat = 31.3 31.8-35 complet ed 017 g/dl .4 ed erythro 09:30 cyte mean corpusc ular h Mean = 33.2 27-31.2 complet corpusc 017 pg ed ular 09:30 hemoglo bin (MCH) determ Lymphoc = 8.2 % 10-50.0 complet yte 017 ed count, 09:30 blood, automat ed Absolut = 0.4 0.7-4.5 complet e 017 K/mm3 ed lymphoc 09:30 yte count Blood = 9.8 12.2-16 complet hemoglo 017 g/dL .2 ed bin 09:30 measure ment (mass/v olum Blood = 31.4 37.0-47 complet hematoc 017 % .0 ed rit 09:30 (volume fractio n) Granulo = 85.2 37.0-80 complet cyte 017 % .0 ed percent 09:30 age Blood = 4.0 1.8-7.8 complet granulo 017 K/mm3 ed cytes 09:30 automat ed count (numb Automat = 0.1 % 0.1-12. complet ed 017 0 ed blood 09:30 eosinop hils/10 0 leukocy t Automat = 0.0 0.0-0.4 complet ed 017 K/mm3 ed blood 09:30 eosinop hil count Differential panel, method unspecified - (09-21-2017 09:30) Acantho 2+ complet cytes 017 ed [Presen 09:30 ce] in Blood by Light microsc opy Anisocy 3+ complet tosis 017 ed [Presen 09:30 ce] in Blood Nanci 1+ complet cells 017 ed [Presen 09:30 ce] in Blood by Light microsc opy LYMPH 5 % 10% - Low complet 017 50% ed 09:30 Macrocy 2+ complet carrie 017 ed [Presen 09:30 ce] in Blood Platele MARKED complet ts 017 DECREAS ed [Presen 09:30 E ce] in Blood by Light microsc opy Polychr 1+ complet omasia 017 ed [Presen 09:30 ce] in Blood by Light microsc opy Gram negative automated antibiotic susceptibility test (09-21-2017 06:36) Vancomy = 1 complet lily 017 ug/ml ed suscept 06:36 ibility test by minimum inhibit ory concent ration Tetracy <= 1 complet cross 017 ug/ml ed suscept 06:36 ibility test by minimum inhibit ory concent ration Trimeth <= 10 complet oprim/s 017 ug/ml ed ulfamet 06:36 hoxazol e suscept ibility test by minimum inhibit ory concent ration Rifampi <= 0.5 complet n 017 ug/ml ed suscept 06:36 ibility test by minimum inhibit ory concent ration Penicil = 0.25 complet martínez G 017 ug/ml ed suscept 06:36 ibility test by minimum inhibit ory concent ration Oxacill <= 0.25 complet in 017 ug/ml ed suscept 06:36 ibility test by minimum inhibit ory concent ration Levoflo 11-02-2 = 0.25 complet xacin 017 ug/ml ed suscept 06:36 ibility test by minimum inhibit ory concent ration Gentami <= 0.5 complet lily 017 ug/ml ed suscept 06:36 ibility test by minimum inhibit ory concent ration Erythro 2 = 0.5 complet mycin 017 ug/ml ed suscept 06:36 ibility test by minimum inhibit ory concent ration Clindam 2 <= 0.25 complet ycin 017 ug/ml ed suscept 06:36 ibility test by minimum inhibit ory concent ration Serum or plasma creatine kinase measurem (09-20-2017 18:00) Serum = 198 26-192 complet or 017 U/L ed plasma 18:00 creatin e kinase measure m CBC w auto diff (09-19-2017 16:30) Blood = 4.9 4.8-10. complet leukocy 017 K/MM3 8 ed carrie 16:30 count (number /volume ) Automat = 27.0 11.5-17 complet ed 017 % .5 ed erythro 16:30 cyte distrib ution width Red = 2.63 4.2-5.4 complet blood 017 M/mm3 ed cell 16:30 count Blood = 26 142-424 complet platele 017 K/mm3 ed t count 16:30 Comment: NOTIFICATION RESULT Automat = 11.7 7.4-10. complet ed 017 fl 4 ed blood 16:30 platele t mean volume vale [place] % = 6.0 % 1.7-9.3 complet 017 ed 16:30 Absolut = 0.3 0.1-1.0 complet e 017 K/mm3 ed monocyt 16:30 e count Automat = 104.4 82.2-97 complet ed 017 fl .8 ed erythro 16:30 cyte mean corpusc ular v Automat = 31.4 31.8-35 complet ed 017 g/dl .4 ed erythro 16:30 cyte mean corpusc ular h Mean = 32.8 27-31.2 complet corpusc 017 pg ed ular 16:30 hemoglo bin (MCH) determ Lymphoc = 13.8 10-50.0 complet yte 017 % ed count, 16:30 blood, automat ed Absolut = 0.7 0.7-4.5 complet e 017 K/mm3 ed lymphoc 16:30 yte count Blood = 8.6 12.2-16 complet hemoglo 017 g/dL .2 ed bin 16:30 measure ment (mass/v olum Blood = 27.5 37.0-47 complet hematoc 017 % .0 ed rit 16:30 (volume fractio n) Granulo = 79.2 37.0-80 complet cyte 017 % .0 ed percent 16:30 age Blood = 3.9 1.8-7.8 complet granulo 017 K/mm3 ed cytes 16:30 automat ed count (numb Automat = 0.8 % 0.1-12. complet ed 017 0 ed blood 16:30 eosinop hils/10 0 leukocy t Automat = 0.0 0.0-0.4 complet ed 017 K/mm3 ed blood 16:30 eosinop hil count Baso % = 0.1 % 0.1-2.0 complet 017 ed 16:30 Automat = 0.0 0-0.2 complet ed 017 K/MM3 ed blood 16:30 basophi l count (count/ vo Wound culture (09-19-2017 09:25) Comment: SPECIMEN COMMENT: LEFT LEG Comment: Collected by nurse? Y Comment: Hold specimen in OE? N Wound [id number] complet culture 017 ed 09:25 Staphyl ococcus aureus SCT SAUR STAPHYL OCOCCUS AUREUS L Vancomycin trough (09-19-2017 06:40) Comment: COMMENTS TO ADMINISTRATIVE AIDE: USE AM LAB IF POSSIBLE Vancomy = 6.6 10.0-20 complet lily 017 mcg/mL .0 ed trough 06:40 Comment: Comment: Comment: RESULTS CALLED TO PHARMACIST: TERRA Connelly Comment: 09/19/17 0908 Luz Marina Gurrola CBC w auto diff (09-19-2017 06:40) Blood = 5.2 4.8-10. complet leukocy 017 K/MM3 8 ed carrie 06:40 count (number /volume ) Automat = 27.1 11.5-17 complet ed 017 % .5 ed erythro 06:40 cyte distrib ution width Red = 2.64 4.2-5.4 complet blood 017 M/mm3 ed cell 06:40 count Blood = 26 142-424 complet platele 017 K/mm3 ed t count 06:40 Comment: NOTIFICATION RESULT Comment: Rebeca Automat = 9.8 7.4-10. complet ed 017 fl 4 ed blood 06:40 platele t mean volume vale [place] % = 5.6 % 1.7-9.3 complet 017 ed 06:40 Absolut = 0.3 0.1-1.0 complet e 017 K/mm3 ed monocyt 06:40 e count Automat = 103.1 82.2-97 complet ed 017 fl .8 ed erythro 06:40 cyte mean corpusc ular v Mean = 32.9 27-31.2 complet corpusc 017 pg ed ular 06:40 hemoglo bin (MCH) determ Lymphoc = 16.4 10-50.0 complet yte 017 % ed count, 06:40 blood, automat ed Blood = 8.7 12.2-16 complet hemoglo 017 g/dL .2 ed bin 06:40 measure ment (mass/v olum Blood = 27.3 37.0-47 complet hematoc 017 % .0 ed rit 06:40 (volume fractio n) Granulo = 76.9 37.0-80 complet cyte 017 % .0 ed percent 06:40 age Blood = 4.0 1.8-7.8 complet granulo 017 K/mm3 ed cytes 06:40 automat ed count (numb Automat = 0.9 % 0.1-12. complet ed 017 0 ed blood 06:40 eosinop hils/10 0 leukocy t Automat = 0.1 0.0-0.4 complet ed 017 K/mm3 ed blood 06:40 eosinop hil count Baso % = 0.1 % 0.1-2.0 complet 017 ed 06:40 Automat = 0.0 0-0.2 complet ed 017 K/MM3 ed blood 06:40 basophi l count (count/ vo Automat = 31.9 31.8-35 complet ed 017 g/dl .4 ed erythro 06:40 cyte mean corpusc ular h Absolut = 0.9 0.7-4.5 complet e 017 K/mm3 ed lymphoc 06:40 yte count Basic metabolic panel (09-19-2017 06:40) Serum = 139 136-145 complet sodium 017 mmoL/L ed measure 06:40 ment Serum = 4.1 3.5-5.1 complet potassi 017 mmoL/L ed um 06:40 measure ment Serum = 87 74-106 complet or 017 mg/dL ed plasma 06:40 glucose measure ment (mas Estimat = 25 59- complet ed 017 ML/MIN ed glomeru 06:40 lar filtrat ion rate (GF Comment: REFERENCE RANGE: >60 ML/MIN/1.73 SQUARE METERS Comment: If this patient is -Swazi, then multiply the Comment: result by 1.210. Estimat = 23 50-200 complet ion of 017 ML/MIN ed creatin 06:40 ine renal clearan ce Serum = 1.9 0.55-1. complet or 017 mg/dL 02 ed plasma 06:40 creatin ine measure ment ( Carbon = 14 21.0-32 complet dioxide 017 mmoL/L .0 ed 06:40 measure ment Serum = 112 98-107 complet or 017 mmoL/L ed plasma 06:40 chlorid e measure ment (mo Serum = 7.7 8.5-10. complet or 017 mg/dL 1 ed plasma 06:40 calcium measure ment (mas Serum 10-31-2 = 53 7-18 complet or 017 mg/dL ed plasma 06:40 urea nitroge n measure men Basic metabolic panel (09-18-2017 06:20) Serum 10-2 = 137 136-145 complet sodium 017 mmoL/L ed measure 06:20 ment Serum 09-18-2 = 4.3 3.5-5.1 complet potassi 017 mmoL/L ed um 06:20 measure ment Serum 09-18-2 = 95 74-106 complet or 017 mg/dL ed plasma 06:20 glucose measure ment (mas Estimat 09-18-2 = 19 59- complet ed 017 ML/MIN ed glomeru 06:20 lar filtrat ion rate (GF Comment: REFERENCE RANGE: >60 ML/MIN/1.73 SQUARE METERS Comment: If this patient is -Swazi, then multiply the Comment: result by 1.210. Estimat 2 = 17 50-200 complet ion of 017 ML/MIN ed creatin 06:20 ine renal clearan ce Serum = 2.5 0.55-1. complet or 017 mg/dL 02 ed plasma 06:20 creatin ine measure ment ( Carbon 2 = 14 21.0-32 complet dioxide 017 mmoL/L .0 ed 06:20 measure ment Serum 2 = 109 98-107 complet or 017 mmoL/L ed plasma 06:20 chlorid e measure ment (mo Serum 09-18-2 = 7.9 8.5-10. complet or 017 mg/dL 1 ed plasma 06:20 calcium measure ment (mas Serum 09-18-2 = 76 7-18 complet or 017 mg/dL ed plasma 06:20 urea nitroge n measure men Comment: NOTIFICATION RESULT Comment: Rebeca CBC w auto diff (09-18-2017 06:20) Blood 09-18-2 = 5.3 4.8-10. complet leukocy 017 K/MM3 8 ed carrie 06:20 count (number /volume ) Automat = 26.6 11.5-17 complet ed 017 % .5 ed erythro 06:20 cyte distrib ution width Red = 2.89 4.2-5.4 complet blood 017 M/mm3 ed cell 06:20 count Blood = 31 142-424 complet platele 017 K/mm3 ed t count 06:20 Comment: NOTIFICATION RESULT Comment: Rebeca Automat = 11.3 7.4-10. complet ed 017 fl 4 ed blood 06:20 platele t mean volume vale [place] % = 7.5 % 1.7-9.3 complet 017 ed 06:20 Absolut = 0.4 0.1-1.0 complet e 017 K/mm3 ed monocyt 06:20 e count Automat = 105.8 82.2-97 complet ed 017 fl .8 ed erythro 06:20 cyte mean corpusc ular v Automat = 30.6 31.8-35 complet ed 017 g/dl .4 ed erythro 06:20 cyte mean corpusc ular h Mean = 32.4 27-31.2 complet corpusc 017 pg ed ular 06:20 hemoglo bin (MCH) determ Lymphoc = 12.1 10-50.0 complet yte 017 % ed count, 06:20 blood, automat ed Absolut = 0.6 0.7-4.5 complet e 017 K/mm3 ed lymphoc 06:20 yte count Blood = 9.4 12.2-16 complet hemoglo 017 g/dL .2 ed bin 06:20 measure ment (mass/v olum Blood = 30.6 37.0-47 complet hematoc 017 % .0 ed rit 06:20 (volume fractio n) Granulo = 79.9 37.0-80 complet cyte 017 % .0 ed percent 06:20 age Blood = 4.3 1.8-7.8 complet granulo 017 K/mm3 ed cytes 06:20 automat ed count (numb Automat = 0.4 % 0.1-12. complet ed 017 0 ed blood 06:20 eosinop hils/10 0 leukocy t Automat = 0.0 0.0-0.4 complet ed 017 K/mm3 ed blood 06:20 eosinop hil count Baso % 10-30-2 = 0.2 % 0.1-2.0 complet 017 ed 06:20 Automat 10-30-2 = 0.0 0-0.2 complet ed 017 K/MM3 ed blood 06:20 basophi l count (count/ vo Antibiotic sensitivity studies (09-18-2017 06:20) Ampicil 10-30-2 = 16 complet martínez 017 ug/ml ed suscept 06:20 ibility test by minimum inhibit ory concent ration Piperac 10-30-2 <= 4 complet illin/t 017 ug/ml ed azobact 06:20 am suscept ibility test by minimum inhibit ory concent ration Tobramy 10-30-2 <= 1 complet lily 017 ug/ml ed suscept 06:20 ibility test by minimum inhibit ory concent ration Ampicil 10-30-2 >= 32 complet martínez/sul 017 ug/ml ed bactam 06:20 suscept ibility test by minimum inhibit ory concent ration Levoflo 10-30-2 <= 0.12 complet xacin 017 ug/ml ed suscept 06:20 ibility test by minimum inhibit ory concent ration Gentami 10-30-2 <= 1 complet lily 017 ug/ml ed suscept 06:20 ibility test by minimum inhibit ory concent ration Nitrofu 10-30-2 = 256 complet rantoin 017 ug/ml ed 06:20 suscept ibility test by minimum inhibit ory concent ration Cefepim 10-30-2 <= 1 complet e 017 ug/ml ed suscept 06:20 ibility test by minimum inhibit ory concent ration Cefazol 10-30-2 >= 64 complet in 017 ug/ml ed suscept 06:20 ibility test by minimum inhibit ory concent ration Ceftria 10-30-2 <= 1 complet xone 017 ug/ml ed suscept 06:20 ibility test by minimum inhibit ory concent ration Ceftazi 10-30-2 <= 1 complet dime/po 017 ug/ml ed tassium 06:20 clavula bakari suscept ibility test by minimum inhibit ory concent ration Whole blood INR measurement (09-18-2017 06:20) Comment: IS PATIENT ON ANTICOAGULANTS? N Comment: PTT RESULTS MUST BE CALLED IF PT ON HEPARIN!!! Y Prothro = 13.3 9.4-11. complet mbin 017 SECONDS 8 ed time 06:20 (PT) in platele t poor p Whole = 1.23 0.9-1.1 complet blood 017 ed INR 06:20 measure ment Comment: INDICATION INR RANGE Comment: Comment: THERAPY FOR DVT, PE, ATRIAL FIB; 2.0 - 3.0 Comment: PROPHYLAXIS FOR VTE Comment: Comment: THERAPY FOR MECHANICAL HEART 2.5 - 3.5 Comment: VALVE; PREVENTION OF SYSTEMIC Comment: EMBOLISM SECONDARY TO AMI Whole blood INR measurement (09-17-2017 06:15) Comment: IS PATIENT ON ANTICOAGULANTS? N Comment: PTT RESULTS MUST BE CALLED IF PT ON HEPARIN!!! Y Prothro = 16.0 9.4-11. complet mbin 017 SECONDS 8 ed time 06:15 (PT) in platele t poor p Whole = 1.48 0.9-1.1 complet blood 017 ed INR 06:15 measure ment Comment: INDICATION INR RANGE Comment: Comment: THERAPY FOR DVT, PE, ATRIAL FIB; 2.0 - 3.0 Comment: PROPHYLAXIS FOR VTE Comment: Comment: THERAPY FOR MECHANICAL HEART 2.5 - 3.5 Comment: VALVE; PREVENTION OF SYSTEMIC Comment: EMBOLISM SECONDARY TO AMI Serum or plasma creatine kinase measurem (09-17-2017 06:15) Serum = 215 26-192 complet or 017 U/L ed plasma 06:15 creatin e kinase measure m Basic metabolic panel (09-17-2017 06:15) Serum = 135 136-145 complet sodium 017 mmoL/L ed measure 06:15 ment Serum = 4.5 3.5-5.1 complet potassi 017 mmoL/L ed um 06:15 measure ment Serum = 89 74-106 complet or 017 mg/dL ed plasma 06:15 glucose measure ment (mas Estimat = 11 59- complet ed 017 ML/MIN ed glomeru 06:15 lar filtrat ion rate (GF Comment: REFERENCE RANGE: >60 ML/MIN/1.73 SQUARE METERS Comment: If this patient is -Swazi, then multiply the Comment: result by 1.210. Estimat = 11 50-200 complet ion of 017 ML/MIN ed creatin 06:15 ine renal clearan ce Serum = 3.8 0.55-1. complet or 017 mg/dL 02 ed plasma 06:15 creatin ine measure ment ( Carbon = 14 21.0-32 complet dioxide 017 mmoL/L .0 ed 06:15 measure ment Serum = 105 98-107 complet or 017 mmoL/L ed plasma 06:15 chlorid e measure ment (mo Serum = 8.3 8.5-10. complet or 017 mg/dL 1 ed plasma 06:15 calcium measure ment (mas Serum = 110 7-18 complet or 017 mg/dL ed plasma 06:15 urea nitroge n measure men Comment: NOTIFICATION RESULT CBC w auto diff (09-17-2017 06:15) [place] % = 6.3 % 1.7-9.3 complet 017 ed 06:15 Absolut = 0.5 0.1-1.0 complet e 017 K/mm3 ed monocyt 06:15 e count Automat = 100.6 82.2-97 complet ed 017 fl .8 ed erythro 06:15 cyte mean corpusc ular v Automat = 32.3 31.8-35 complet ed 017 g/dl .4 ed erythro 06:15 cyte mean corpusc ular h Mean = 32.4 27-31.2 complet corpusc 017 pg ed ular 06:15 hemoglo bin (MCH) determ Lymphoc = 10.0 10-50.0 complet yte 017 % ed count, 06:15 blood, automat ed Absolut = 0.7 0.7-4.5 complet e 017 K/mm3 ed lymphoc 06:15 yte count Blood = 9.3 12.2-16 complet hemoglo 017 g/dL .2 ed bin 06:15 measure ment (mass/v olum Blood = 28.8 37.0-47 complet hematoc 017 % .0 ed rit 06:15 (volume fractio n) Granulo = 83.2 37.0-80 complet cyte 017 % .0 ed percent 06:15 age Blood = 6.0 1.8-7.8 complet granulo 017 K/mm3 ed cytes 06:15 automat ed count (numb Automat = 0.3 % 0.1-12. complet ed 017 0 ed blood 06:15 eosinop hils/10 0 leukocy t Automat = 0.0 0.0-0.4 complet ed 017 K/mm3 ed blood 06:15 eosinop hil count Baso % = 0.1 % 0.1-2.0 complet 017 ed 06:15 Automat = 0.0 0-0.2 complet ed 017 K/MM3 ed blood 06:15 basophi l count (count/ vo Blood = 7.3 4.8-10. complet leukocy 017 K/MM3 8 ed carrie 06:15 count (number /volume ) Automat = 26.7 11.5-17 complet ed 017 % .5 ed erythro 06:15 cyte distrib ution width Red = 2.86 4.2-5.4 complet blood 017 M/mm3 ed cell 06:15 count Blood = 31 142-424 complet platele 017 K/mm3 ed t count 06:15 Comment: NOTIFICATION RESULT Automat = 11.3 7.4-10. complet ed 017 fl 4 ed blood 06:15 platele t mean volume vale Whole blood hemoglobin and hematocrit pa (09-16-2017 21:25) Blood = 9.3 12.2-16 complet hemoglo 017 g/dL .2 ed bin 21:25 measure ment (mass/v olum Blood = 28.2 37.0-47 complet hematoc 017 % .0 ed rit 21:25 (volume fractio n) Whole blood hemoglobin and hematocrit pa (09-16-2017 15:58) Blood = 9.3 12.2-16 complet hemoglo 017 g/dL .2 ed bin 15:58 measure ment (mass/v olum Blood = 27.8 37.0-47 complet hematoc 017 % .0 ed rit 15:58 (volume fractio n) Urine culture (09-16-2017 14:50) Urine [id number] complet culture 017 2 ed 14:50 Provide ncia rettger i SCT PRVRE PROVIDE NCIA RETTGER I L Urinalysis with microscopy (09-16-2017 14:50) Comment: Collected by nurse? Y Comment: Hold specimen in OE? N Mucus 2+ 2+ L NEG complet detecti 017 ed on in 14:50 urine sedimen t by lig Urine 10 - 20 O complet leukocy 017 ed carrie 14:50 wbc/hpf count (number /volume ) Urine 1.0 1.0 NEG complet urobili 017 L ed nogen 14:50 E.U./dL detecti on by test str [place] NONE 0-5 complet s 017 NONE L ed epithel 14:50 #/hpf ial cells detecti on in u Urine = 1.015 1.005-1 complet specifi 017 .030 ed c 14:50 gravity measure ment Erythro 10-20 0 complet cytes 017 10-20 L ed detecti 14:50 on in rbc/hpf urine sedimen t Urine 2 + NEG complet protein 017 mg/dL ed 14:50 measure ment by automat ed t Urine = 8.0 5.0-8.5 complet pH 017 ed 14:50 Urine POSITIV NEG complet nitrite 017 E ed 14:50 POSITIV detecti E L on by test strip Urine TRACE NEG complet ketones 017 TRACE L ed 14:50 mg/dL detecti on by automat ed carrie Glucose = NEG complet ur 017 NEGATIV ed test 14:50 E strip Urine OTHER YELLOW complet color 017 OTHER L ed 14:50 Urine 3+ 3+ L NEG complet blood 017 ed detecti 14:50 on Urine 2+ 2+ L NEG complet total 017 ed bilirub 14:50 in detecti on by test Comment: BILIRUBIN CONFIRMED WITH ICTOTEST Comment: ICTOTEST NEGATIVE Bacteri 1+ 1+ L O complet a 017 ed detecti 14:50 on in urine sedimen t by Urine CLOUDY CLEAR complet appeara 017 CLOUDY ed nce 14:50 L determi nation Urinalysis dipstick W Reflex Microscopic panel in Urine (09-16-2017 14:50) Bacteri 1+ O complet a 017 ed [Presen 14:50 ce] in Urine sedimen t by Light microsc opy Erythro 10-20 0 complet cytes 017 ed [Presen 14:50 ce] in Urine sedimen t by Light microsc opy Epithel NONE 0#/hp complet ial 017 f - ed cells.s 14:50 5#/hp quamous f [Presen ce] in Urine sedimen t by Microsc opy high power field Leukocy 10-20 O complet carrie 017 wbc/hpf ed [#/volu 14:50 me] in Urine Urinalysis dipstick W Reflex Microscopic panel in Urine (09-16-2017 14:50) Appeara CLOUDY CLEAR complet nce of 017 ed Urine 14:50 Bilirub 2+ NEG Abnorma complet in 017 l ed [Presen 14:50 ce] in Urine by Test strip Erythro 3+ NEG Abnorma complet cytes 017 l ed [Presen 14:50 ce] in Urine Color OTHER YELLOW complet of 017 ed Urine 14:50 Ketones TRACE NEG Abnorma complet 017 l ed [Presen 14:50 ce] in Urine by Automat ed test strip Mucus 2+ NEG Abnorma complet [Presen 017 l ed ce] in 14:50 Urine sedimen t by Light microsc opy Nitrite POSITIV NEG Abnorma complet 017 E l ed [Presen 14:50 ce] in Urine by Test strip Urobili 1.0 NEG complet nogen 017 ed [Presen 14:50 ce] in Urine by Test strip Leukocyte reduction of packed red blood (09-16-2017 12:57) Leukocy 10-28-2 BLOOD complet te 017 UNIT ed reducti 12:57 RELEASE on of BLOOD packed UNIT red RELEASE blood L Comment: BLOOD UNIT # : [id number] RELEASED 09/16/17 Comment: Simi Belcher Comment: Comment: [id number] Comment: O POSITIVE Blood product special preparation [Type] (09-16-2017 12:57) Blood BLOOD complet product 017 UNIT ed 12:57 RELEASE special prepara tion [Type] Leukocyte reduction of packed red blood (09-16-2017 09:55) Leukocy BLOOD complet te 017 UNIT ed reducti 09:55 RELEASE on of BLOOD packed UNIT red RELEASE blood L Comment: BLOOD UNIT # : [id number] RELEASED 09/16/17 Comment: OLiana Steen Blood product special preparation [Type] (09-16-2017 09:55) Blood BLOOD complet product 017 UNIT ed 09:55 RELEASE special prepara tion [Type] CBC w auto diff (09-16-2017 06:10) Automat = 10.3 7.4-10. complet ed 017 fl 4 ed blood 06:10 platele t mean volume vale [place] % = 4.5 % 1.7-9.3 complet 017 ed 06:10 Absolut = 0.4 0.1-1.0 complet e 017 K/mm3 ed monocyt 06:10 e count Automat = 107.3 82.2-97 complet ed 017 fl .8 ed erythro 06:10 cyte mean corpusc ular v Automat = 33.1 31.8-35 complet ed 017 g/dl .4 ed erythro 06:10 cyte mean corpusc ular h Mean = 35.5 27-31.2 complet corpusc 017 pg ed ular 06:10 hemoglo bin (MCH) determ Lymphoc = 8.4 % 10-50.0 complet yte 017 ed count, 06:10 blood, automat ed Absolut = 0.8 0.7-4.5 complet e 017 K/mm3 ed lymphoc 06:10 yte count Blood = 7.3 12.2-16 complet hemoglo 017 g/dL .2 ed bin 06:10 measure ment (mass/v olum Comment: Comment: CRITICAL RESULTS Comment: RESULTS CALLED TO: 09/16/17 0655 Liana Crowley Blood = 22.1 37.0-47 complet hematoc 017 % .0 ed rit 06:10 (volume fractio n) Comment: CRITICAL RESULTS Comment: RESULTS CALLED TO: TERRYY 09/16/17 0655 Liana Crowley Comment: Granulo = 87.0 37.0-80 complet cyte 017 % .0 ed percent 06:10 age Blood = 8.4 1.8-7.8 complet granulo 017 K/mm3 ed cytes 06:10 automat ed count (numb Automat = 0.1 % 0.1-12. complet ed 017 0 ed blood 06:10 eosinop hils/10 0 leukocy t Automat = 0.0 0.0-0.4 complet ed 017 K/mm3 ed blood 06:10 eosinop hil count Baso % = 0.0 % 0.1-2.0 complet 017 ed 06:10 Automat = 0.0 0-0.2 complet ed 017 K/MM3 ed blood 06:10 basophi l count (count/ vo Blood = 9.6 4.8-10. complet leukocy 017 K/MM3 8 ed carrie 06:10 count (number /volume ) Automat = 25.6 11.5-17 complet ed 017 % .5 ed erythro 06:10 cyte distrib ution width Red = 2.06 4.2-5.4 complet blood 017 M/mm3 ed cell 06:10 count Blood = 41 142-424 complet platele 017 K/mm3 ed t count 06:10 Comment: NOTIFICATION RESULT Whole blood INR measurement (09-16-2017 06:10) Comment: IS PATIENT ON ANTICOAGULANTS? Y Comment: LIST ANTICOAGULANTS: Comment: COUMADIN Comment: PTT RESULTS MUST BE CALLED IF PT ON HEPARIN!!! Y Prothro = 42.8 9.4-11. complet mbin 017 SECONDS 8 ed time 06:10 (PT) in platele t poor p Whole = 3.91 0.9-1.1 complet blood 017 ed INR 06:10 measure ment Comprehensive metabolic panel (09-16-2017 06:10) Serum = 49 15-37 complet or 017 U/L ed plasma 06:10 asparta te aminotr ansfera Serum = 131 136-145 complet sodium 017 mmoL/L ed measure 06:10 ment Serum = 4.6 3.5-5.1 complet potassi 017 mmoL/L ed um 06:10 measure ment Serum = 82 74-106 complet or 017 mg/dL ed plasma 06:10 glucose measure ment (mas Serum = 3.1 1.3-3.2 complet globuli 017 gm/dL ed n 06:10 measure ment (mass/v olume) Estimat = 8 59- complet ed 017 ML/MIN ed glomeru 06:10 lar filtrat ion rate (GF Comment: REFERENCE RANGE: >60 ML/MIN/1.73 SQUARE METERS Comment: If this patient is -Swazi, then multiply the Comment: result by 1.210. Estimat = 7 50-200 complet ion of 017 ML/MIN ed creatin 06:10 ine renal clearan ce Serum = 5.2 0.55-1. complet or 017 mg/dL 02 ed plasma 06:10 creatin ine measure ment ( Carbon = 11 21.0-32 complet dioxide 017 mmoL/L .0 ed 06:10 measure ment Serum = 100 98-107 complet or 017 mmoL/L ed plasma 06:10 chlorid e measure ment (mo Serum = 8.3 8.5-10. complet or 017 mg/dL 1 ed plasma 06:10 calcium measure ment ([facility] Serum = 131 7-18 complet or 017 mg/dL ed plasma 06:10 urea nitroge n measure men Comment: NOTIFICATION RESULT Serum = 0.8 0.2-1.0 complet or 017 mg/dL ed plasma 06:10 total bilirub in measure m Serum = 74 46-116 complet or 017 U/L ed plasma 06:10 alkalin e phospha tase vale Serum = 2.1 3.4-5.0 complet or 017 gm/dL ed plasma 06:10 albumin measure ment (mas Serum = 0.7 1.1-1.8 complet or 017 ed plasma 06:10 albumin /globul in mass ra Protein = 5.2 6.4-8.2 complet total 017 gm/dL ed ser/tommy 06:10 s ALT = 24 12-78 complet (SGPT) 017 U/L ed ser/tommy 06:10 s Cardiac enzymes (09-16-2017 06:10) Serum = 0.11 0.00-0. complet or 017 ng/mL 06 ed plasma 06:10 troponi n i.cardi ac measu Comment: 0.04 - 0.49 IS AN INDETERMINANT ZONE Comment: And can be consistent with the following diseases: Comment: Comment: Trauma Critically ill patients Alberto >30% TBSA Comment: CHF Hypothyroidism Amyloidosis Comment: Hypertension Myocarditis Sepsis Comment: Hypotension Rhabdomyolysis Vital exhaust. Comment: Postop surgery Pulmonary embolism CVA Comment: Renal failure Acute neurological disease Atrial fib. Serum = 599 26-192 complet or 017 U/L ed plasma 06:10 creatin e kinase measure m Serum = 7.8 0.0-3.6 complet or 017 ng/mL ed plasma 06:10 creatin e kinase MB measu Serum = 1.3 0-4.0 complet or 017 U/L ed plasma 06:10 creatin e kinase MB (CK-M Crossmatch (09-16-2017) Comment: Hold? N Comment: Transfuse now? 2 UNITS NOW Immedia COMPAT complet te spin 017 COMPAT ed L crossma tch Interpr COMPAT complet etation 017 COMPAT ed of L major crossma tch resul Blood type & Crossmatch panel in Blood (09-16-2017) Major COMPAT complet crossma 017 ed tch [interp retatio n] Major COMPAT complet crossma 017 ed tch [interp retatio n] by Immedia te spin Whole blood hemoglobin and hematocrit pa (09-15-2017 22:16) Comment: COMMENTS TO ADMINISTRATIVE AIDE: ONE HR POST TRANSFUSION Blood = 25.3 37.0-47 complet hematoc 017 % .0 ed rit 22:16 (volume fractio n) Blood = 8.4 12.2-16 complet hemoglo 017 g/dL .2 ed bin 22:16 measure ment (mass/v olum Leukocyte reduction of packed red blood (09-15-2017 19:50) Leukocy BLOOD complet te 017 UNIT ed reducti 19:50 RELEASE on of BLOOD packed UNIT red RELEASE blood L Comment: BLOOD UNIT # : [id number] RELEASED 09/15/17 1950 Comment: Carlos Montes Comment: O POSITIVE Blood product special preparation [Type] (09-15-2017 19:50) Blood BLOOD complet product 017 UNIT ed 19:50 RELEASE special prepara tion [Type] Serum or plasma thyroid stimulating horm (09-15-2017 14:35) Serum = 2.40 0.358-3 complet or 017 uIU/ml .740 ed plasma 14:35 thyroid stimula ting horm Comprehensive metabolic panel (09-15-2017 14:35) Protein = 5.8 6.4-8.2 complet total 017 gm/dL ed ser/tommy 14:35 s ALT = 29 12-78 complet (SGPT) 017 U/L ed ser/tommy 14:35 s Serum = 71 15-37 complet or 017 U/L ed plasma 14:35 asparta te aminotr ansfera Serum = 130 136-145 complet sodium 017 mmoL/L ed measure 14:35 ment Serum = 5.4 3.5-5.1 complet potassi 017 mmoL/L ed um 14:35 measure ment Serum = 113 74-106 complet or 017 mg/dL ed plasma 14:35 glucose measure ment (mas Serum = 3.1 1.3-3.2 complet globuli 017 gm/dL ed n 14:35 measure ment (mass/v olume) Estimat = 6 59- complet ed 017 ML/MIN ed glomeru 14:35 lar filtrat ion rate (GF Comment: REFERENCE RANGE: >60 ML/MIN/1.73 SQUARE METERS Comment: If this patient is -Swazi, then multiply the Comment: result by 1.210. Estimat = 6 50-200 complet ion of 017 ML/MIN ed creatin 14:35 ine renal clearan ce Serum = 6.3 0.55-1. complet or 017 mg/dL 02 ed plasma 14:35 creatin ine measure ment ( Carbon = 15 21.0-32 complet dioxide 017 mmoL/L .0 ed 14:35 measure ment Serum = 98 98-107 complet or 017 mmoL/L ed plasma 14:35 chlorid e measure ment (mo Serum = 8.3 8.5-10. complet or 017 mg/dL 1 ed plasma 14:35 calcium measure ment (mas Serum = 144 7-18 complet or 017 mg/dL ed plasma 14:35 urea nitroge n measure men Comment: Comment: NOTIFICATION RESULT Comment: 09/15/17 1553 Kanwal Perez Serum = 0.7 0.2-1.0 complet or 017 mg/dL ed plasma 14:35 total bilirub in measure m Serum = 86 46-116 complet or 017 U/L ed plasma 14:35 alkalin e phospha tase vale Serum = 2.7 3.4-5.0 complet or 017 gm/dL ed plasma 14:35 albumin measure ment (mas Serum = 0.9 1.1-1.8 complet or 017 ed plasma 14:35 albumin /globul in mass ra Whole blood INR measurement (09-15-2017 14:35) Comment: IS PATIENT ON ANTICOAGULANTS? Y Comment: LIST ANTICOAGULANTS: Comment: COUMADIN Prothro = 149.9 9.4-11. complet mbin 017 8 ed time 14:35 SECONDS (PT) in platele t poor p Comment: NOTIFICATION RESULT Comment: Comment: Whole = 13.52 0.9-1.1 complet blood 017 ed INR 14:35 measure ment Comment: NOTIFICATION RESULT Comment: INDICATION INR RANGE Comment: Comment: THERAPY FOR DVT, PE, ATRIAL FIB; 2.0 - 3.0 Comment: PROPHYLAXIS FOR VTE Comment: Comment: THERAPY FOR MECHANICAL HEART 2.5 - 3.5 Comment: VALVE; PREVENTION OF SYSTEMIC Comment: EMBOLISM SECONDARY TO AMI Thiamine WB (09-15-2017 14:35) Comment: COMMENTS TO ADMINISTRATIVE AIDE: run on blood in lab Thiamin = 127.5 66.5-20 complet e WB 017 nmol/L 0.0 ed 14:35 Comment: Performed at: [facility] [employer] [facility] Comment: [facility] [place], [place] [id number] Comment: Endoscopy Registered Nurse: Conner Paniagua MD, Phone: [phone] Serum or plasma folate measurement ([facility] (09-15-2017 14:35) Comment: COMMENTS TO ADMINISTRATIVE AIDE: run on blood in lab Serum > 20.0 >3.0 complet or 017 ng/mL ed plasma 14:35 folate measure ment ([facility] Iron and TIBC (09-15-2017 14:35) Comment: COMMENTS TO ADMINISTRATIVE AIDE: run on blood in lab Serum = 10 % 15-55 complet or 017 ed plasma 14:35 iron saturat ion measure m Comment: Performed at: [facility] Comment: [id number] [facility], [place], [place] [id number] Comment: Endoscopy Registered Nurse: Marcello Jewell PhD, Phone: [phone] Iron, = 23 27-139 complet serum 017 ug/dL ed 14:35 Unsatur = 207 118-369 complet ated 017 ug/dL ed iron 14:35 binding capacit y measur Serum = 230 250-450 complet or 017 ug/dL ed plasma 14:35 iron binding capacit y me Vitamin B12 ser/plas (09-15-2017 14:35) Comment: COMMENTS TO ADMINISTRATIVE AIDE: run on blood in lab Vitamin = 1953 211-946 complet B12 017 pg/mL ed ser/tommy 14:35 s Comment: Performed at: [facility] Comment: [id number], [place], [place] [id number] Comment: Endoscopy Registered Nurse: Marcello Jewell PhD, Phone: [phone] Digoxin level (09-15-2017 14:35) Digoxin = 2.35 1.15-2. complet level 017 ng/mL 56 ed 14:35 Differential panel, method unspecified - (09-15-2017 14:35) Blood = 100 complet total 017 #CELLS ed cell 14:35 count Neutrop = 85 % 42-76 complet hil 017 ed count 14:35 Blood 1+ 1+ L complet poikilo 017 ed cytosis 14:35 detecti on by light Platele MOD complet t 017 DECREAS ed estimat 14:35 E MOD e DECREAS E L Monocyt = 4 % 2-9 complet e % 017 ed 14:35 Macrocy 2+ 2+ L complet carrie 017 ed detecti 14:35 on LYMPH 8 % 10-50 complet 017 ed 14:35 Automat = 3 % 0-8 complet ed 017 ed blood 14:35 band neutrop hil percent a Blood 2+ 2+ L complet anisocy 017 ed tosis 14:35 detecti on Cardiac enzymes (09-15-2017 14:35) Comment: COMMENTS TO ADMINISTRATIVE AIDE: run on blood in lab Serum = 0.19 0.00-0. complet or 017 ng/mL 06 ed plasma 14:35 troponi n i.cardi ac measu Comment: 0.04 - 0.49 IS AN INDETERMINANT ZONE Comment: And can be consistent with the following diseases: Comment: Comment: Trauma Critically ill patients Alberto >30% TBSA Comment: CHF Hypothyroidism Amyloidosis Comment: Hypertension Myocarditis Sepsis Comment: Hypotension Rhabdomyolysis Vital exhaust. Comment: Postop surgery Pulmonary embolism CVA Comment: Renal failure Acute neurological disease Atrial fib. Serum = 12.3 0.0-3.6 complet or 017 ng/mL ed plasma 14:35 creatin e kinase MB measu Comment: CRITICAL RESULTS Comment: RESULTS CALLED TO: MARCELINO 09/15/17 1737 Kanwal Perez Serum = 1.0 0-4.0 complet or 017 U/L ed plasma 14:35 creatin e kinase MB (CK-M Serum = 1285 26-192 complet or 017 U/L ed plasma 14:35 creatin e kinase measure m Leukocyte reduction of packed red blood (09-15-2017 14:35) Leukocy BLOOD complet te 017 UNIT ed reducti 14:35 RELEASE on of BLOOD packed UNIT red RELEASE blood L Comment: Comment: BLOOD UNIT # : [id number] RELEASED 09/15/17 Comment: Luz Marina Gurrola Crossmatch (09-15-2017 14:35) Comment: Hold? N Comment: Transfuse now? 2 UNITS NOW Immedia COMPAT complet te spin 017 COMPAT ed 14:35 L crossma tch Interpr COMPAT complet etation 017 COMPAT ed of 14:35 L major crossma tch resul Blood type and crossmatch (09-15-2017 14:35) Comment: Hold? N Comment: Transfuse now? 2 UNITS NOW Blood O O L complet ABO 017 ed group 14:35 typing Rh POSITIV complet blood 017 E ed group 14:35 POSITIV typing E L Materna NEGATIV NEGATIV complet l 017 E E ed antibod 14:35 NEGATIV y E L screen CBC w auto diff (09-15-2017 14:35) Blood = 13.3 4.8-10. complet leukocy 017 K/MM3 8 ed carrie 14:35 count (number /volume ) Automat = 18.7 11.5-17 complet ed 017 % .5 ed erythro 14:35 cyte distrib ution width Red = 1.60 4.2-5.4 complet blood 017 M/mm3 ed cell 14:35 count Blood = 63 142-424 complet platele 017 K/mm3 ed t count 14:35 Automat = 10.1 7.4-10. complet ed 017 fl 4 ed blood 14:35 platele t mean volume vale [place] % = 3.8 % 1.7-9.3 complet 017 ed 14:35 Absolut = 0.5 0.1-1.0 complet e 017 K/mm3 ed monocyt 14:35 e count Automat = 123.1 82.2-97 complet ed 017 fl .8 ed erythro 14:35 cyte mean corpusc ular v Automat = 32.4 31.8-35 complet ed 017 g/dl .4 ed erythro 14:35 cyte mean corpusc ular h Mean = 39.9 27-31.2 complet corpusc 017 pg ed ular 14:35 hemoglo bin (MCH) determ Lymphoc = 6.3 % 10-50.0 complet yte 017 ed count, 14:35 blood, automat ed Absolut = 0.8 0.7-4.5 complet e 017 K/mm3 ed lymphoc 14:35 yte count Blood = 6.4 12.2-16 complet hemoglo 017 g/dL .2 ed bin 14:35 measure ment (mass/v olum Comment: CRITICAL RESULTS Comment: RESULTS CALLED TO: MARCELINO 09/15/17 1453 Cracraft,Luz Marina Blood = 19.7 37.0-47 complet hematoc 017 % .0 ed rit 14:35 (volume fractio n) Comment: CRITICAL RESULTS Comment: RESULTS CALLED TO: MARCELINO 09/15/17 1454 Cracraft,Luz Marina Granulo = 89.8 37.0-80 complet cyte 017 % .0 ed percent 14:35 age Blood = 11.9 1.8-7.8 complet granulo 017 K/mm3 ed cytes 14:35 automat ed count (numb Automat = 0.1 % 0.1-12. complet ed 017 0 ed blood 14:35 eosinop hils/10 0 leukocy t Automat = 0.0 0.0-0.4 complet ed 017 K/mm3 ed blood 14:35 eosinop hil count Baso % = 0.1 % 0.1-2.0 complet 017 ed 14:35 Automat = 0.0 0-0.2 complet ed 017 K/MM3 ed blood 14:35 basophi l count (count/ vo Blood product special preparation [Type] (09-15-2017 14:35) Blood BLOOD complet product 017 UNIT ed 14:35 RELEASE special prepara tion [Type] Blood type & Crossmatch panel in Blood (09-15-2017 14:35) Blood NEGATIV NEGATIV complet group 017 E E ed antibod 14:35 y screen [Presen ce] in Serum or Plasma Rh POSITIV complet [Type] 017 E ed in 14:35 Blood ABO O complet group 017 ed [Type] 14:35 in Blood Blood type & Crossmatch panel in Blood (09-15-2017 14:35) Major COMPAT complet crossma 017 ed tch 14:35 [interp retatio n] Major COMPAT complet crossma 017 ed tch 14:35 [interp retatio n] by Immedia te spin Differential panel, method unspecified - (09-15-2017 14:35) Anisocy 2+ complet tosis 017 ed [Presen 14:35 ce] in Blood LYMPH 8 % 10% - Low complet 017 50% ed 14:35 Macrocy 2+ complet carrie 017 ed [Presen 14:35 ce] in Blood Platele MOD complet ts 017 DECREAS ed [Presen 14:35 E ce] in Blood by Light microsc opy Poikilo 1+ complet cytosis 017 ed 14:35 [Presen ce] in Blood by Light microsc opy Urinalysis dipstick W Reflex Microscopic panel in [...] sedimen t by Light microsc opy Epithel 3-5 0#/hp complet ial 017 f - ed cells.s 12:04 5#/hp quamous f [Presen ce] in Urine sedimen t by Microsc opy high power field Urobili 0.2 NEG complet nogen 017 ed [Presen 12:04 ce] in Urine by Test strip Leukocy 04-19- 50-100 O complet carrie 017 wbc/hpf ed [#/volu 12:04 me] in Urine
--- OUTSIDE RECORDS SUMMARY | 2017-10-06 12:57 | External Medical Summary Rpt | CCD ---
Author Author , TRA DUTTA Address Unknown Phone [email or web address] Purpose Continuity of Care Document - 04-19-2017 [...] SQUARE METERS Comment: If this patient is -Cypriot, then multiply the Comment: result by 1.210. [...] SQUARE METERS Comment: If this patient is -Cypriot, then multiply the Comment: result by 1.210. [...] blood 09:30 platele t mean volume vale [place] % = 6.3 % 1.7-9.3 complet 017 [...] blood 16:30 platele t mean volume vale [place] % = 6.0 % 1.7-9.3 complet 017 [...] Comment: Hold specimen in OE? N Wound [id number] complet culture 017 ed 09:25 Staphyl ococcus aureus SCT SAUR STAPHYL OCOCCUS AUREUS L Vancomycin trough (09-19-2017 06:40) Comment: COMMENTS TO SOLE LEVELER MACHINE: USE AM LAB IF POSSIBLE Vancomy = [...] blood 06:40 platele t mean volume vale [place] % = 5.6 % 1.7-9.3 complet 017 [...] SQUARE METERS Comment: If this patient is -Cypriot, then multiply the Comment: result by 1.210. [...] SQUARE METERS Comment: If this patient is -Cypriot, then multiply the Comment: result by 1.210. [...] blood 06:20 platele t mean volume vale [place] % = 7.5 % 1.7-9.3 complet 017 [...] SQUARE METERS Comment: If this patient is -Cypriot, then multiply the Comment: result by 1.210. [...] RESULT CBC w auto diff (09-17-2017 06:15) [place] % = 6.3 % 1.7-9.3 complet 017 [...] fractio n) Urine culture (09-16-2017 14:50) Urine [id number] complet culture 017 2 ed 14:50 Provide [...] Comment: BLOOD UNIT # : [id number] RELEASED 09/16/17 Comment: Simi Belcher Comment: Comment: [...] Comment: BLOOD UNIT # : [id number] RELEASED 09/16/17 Comment: OLiana Steen Blood product special preparation [Type] (09-16-2017 09:55) Blood BLOOD complet product 017 UNIT ed 09:55 RELEASE special prepara tion [Type] CBC w auto diff (09-16-2017 06:10) Automat = 10.3 7.4-10. complet ed 017 fl 4 ed blood 06:10 platele t mean volume vale [place] % = 4.5 % 1.7-9.3 complet 017 [...] SQUARE METERS Comment: If this patient is -Cypriot, then multiply the Comment: result by 1.210. [...] 1 ed plasma 06:10 calcium measure ment ([facility] Serum = 131 7-18 complet or 017 [...] hematocrit pa (09-15-2017 22:16) Comment: COMMENTS TO SOLE LEVELER MACHINE: ONE HR POST TRANSFUSION Blood = 25.3 [...] Comment: BLOOD UNIT # : [id number] RELEASED 09/15/17 1950 Comment: Carlos Montes Comment: [...] SQUARE METERS Comment: If this patient is -Cypriot, then multiply the Comment: result by 1.210. [...] men Comment: Comment: NOTIFICATION RESULT Comment: 09/15/17 1557 Kanwal Perez Serum = 0.7 0.2-1.0 complet [...] Thiamine WB (09-15-2017 14:35) Comment: COMMENTS TO SOLE LEVELER MACHINE: run on blood in lab Thiamin = 127.5 66.5-20 complet e WB 017 nmol/L 0.0 ed 14:35 Comment: Performed at: [facility] Comment: [facility] [place], [place] [id number] Comment: Back Gray Cloth Washer: Conner Paniagua MD, Phone: [phone] Serum or plasma folate measurement ([facility] (09-15-2017 14:35) Comment: COMMENTS TO SOLE LEVELER MACHINE: run on blood in lab Serum > 20.0 >3.0 complet or 017 ng/mL ed plasma 14:35 folate measure ment ([facility] Iron and TIBC (09-15-2017 14:35) Comment: COMMENTS TO SOLE LEVELER MACHINE: run on blood in lab Serum = 10 % 15-55 complet or 017 ed plasma 14:35 iron saturat ion measure m Comment: Performed at: [facility] Comment: [id number] [facility], [place], [place] [id number] Comment: Back Gray Cloth Washer: Marcello Jewell PhD, Phone: [phone] Iron, = 23 27-139 complet serum 017 ug/dL ed 14:35 Unsatur = 207 118-369 complet ated 017 ug/dL ed iron 14:35 binding capacit y measur Serum = 230 250-450 complet or 017 ug/dL ed plasma 14:35 iron binding capacit y me Vitamin B12 ser/plas (09-15-2017 14:35) Comment: COMMENTS TO SOLE LEVELER MACHINE: run on blood in lab Vitamin = 1953 211-946 complet B12 017 pg/mL ed ser/tommy 14:35 s Comment: Performed at: [facility] Comment: [id number] [facility], [place], [place] [id number] Comment: Back Gray Cloth Washer: Marcello Jewell PhD, Phone: [phone] Digoxin level (09-15-2017 14:35) Digoxin = 2.35 [...] Cardiac enzymes (09-15-2017 14:35) Comment: COMMENTS TO SOLE LEVELER MACHINE: run on blood in lab Serum = [...] L Comment: Comment: BLOOD UNIT # : [id number] RELEASED 09/15/17 Comment: Luz Marina Gurrloa Crossmatch (09-15-2017 14:35) Comment: Hold? N Comment: [...] blood 14:35 platele t mean volume vale [place] % = 3.8 % 1.7-9.3 complet 017 [...]
[2017-10-06 12:58] LABS: HEMOGLOBIN 9.4 g/dL (12.2-16.2); LYMPH # 0.6 K/mm3 (0.7-4.5); LYMPH % 4.9 % (10-50.0)
--- OUTSIDE RECORDS SUMMARY | 2017-10-06 12:58 | External Medical Summary Rpt | CCD ---
Demographics Preferred Language Filipino Marital Status Unknown Mandaen Affiliation Unknown Race Unknown Ethnic Group Unknown Author Author , BEATRIZ DUTTA Address Unknown Phone [email or web address] Immunization Name Date Rout CVX Reac Dose Comm Prov Is Faci e tion ent ider Refu lity Give sed n Td 03-0 9 999 Hist H196 No H196 (jen 8-19 oric lt), 97 al Info adso rmat rbed ion - Sour ce Unsp ecif ied
--- OUTSIDE RECORDS SUMMARY | 2017-10-06 12:58 | External Medical Summary Rpt | CCD ---
Demographics Preferred Language Mosotho Marital Status Unknown Mosque Affiliation Unknown Race Unknown Ethnic Group Unknown Author Author , BEATRIZ DUTTA Address Unknown Phone [email or web address] Immunization Name Date Rout CVX Reac Dose Comm Prov Is Faci e tion ent ider Refu lity Give sed n Td 03-0 9 999 Hist H196 No H196 (jen 8-19 oric lt), 97 al Info adso rmat rbed ion - Sour ce Unsp ecif ied
--- OUTSIDE RECORDS SUMMARY | 2017-10-06 13:01 | External Medical Summary Rpt ---
Author Author MATIASHANSA Salinas, [facility] [employer] Organization [facility] [employer] Address Unknown Phone Unavailable Results Comprehensive metabolic 2000 panel in Serum or Plasma Observa Value Referen Units Interpr Notes Date tion ce etation Range Albumin/G 1.1 - 1.8 No Low No Sep 4 lobulin informati informati 2017 9:05 [Mass on in on in AM ratio] in source source Serum or data data Plasma Albumin 3.4 - 5.0 gm/dL Low No Sep 23 [Mass/vol informati 2017 9:05 ume] in on in AM Serum or source Plasma data Alkaline 46 - 116 U/L Normal No Sep 23 phosphata informati 2017 9:05 se on in AM [Enzymati source c data activity/ volume] in Serum or Plasma Bilirubin 0.2 - 1.0 mg/dL Normal No Sep 23 .total informati 2017 9:05 [Mass/vol on in AM ume] in source Serum or data Plasma Urea 7 - 18 mg/dL High No Sep 23 nitrogen informati 2017 9:05 [Mass/vol on in AM ume] in source Serum or data Plasma Calcium 8.5 - mg/dL Low No Sep 23 [Mass/vol 10.1 informati 2017 9:05 ume] in on in AM Serum or source Plasma data Chloride 98 - 107 mmoL/L Normal No Sep 23 [Moles/vo informati 2017 9:05 lume] in on in AM Serum or source Plasma data Carbon 21.0 - mmoL/L Low No Sep 23 dioxide, 32.0 informati 2017 9:05 total on in AM [Moles/vo source lume] in data Serum or Plasma Creatinin 0.55 - mg/dL High No Sep 4 e 1.02 informati 2017 9:05 [Mass/vol on in AM ume] in source Serum or data Plasma Creatinin 50 - 200 ML/MIN Low No Sep 23 e renal informati 2017 9:05 clearance on in AM source predicted data by Cockcroft -Gault formula Estimated 59- ML/MIN Low REFERENCE Nov 4 RANGE: 2017 9:05 glomerula >60 AM r ML/MIN/1. filtratio 73 SQUARE n rate METERSIf (GF this patient is -A merican, then multiply theresult by 1.210. Globulin 1.3 - 3.2 gm/dL High No Sep 23 [Mass/vol informati 2016 9:05 ume] in on in AM Serum source data Glucose 74 - 106 mg/dL High No Sep 23 [Mass/vol informati 2016 9:05 ume] in on in AM Serum or source Plasma data Potassium 3.5 - 5.1 mmoL/L Normal No Sep 232016 9:05 [Moles/vo on in AM lume] in source Serum or data Plasma Sodium 136 - 145 mmoL/L Normal No Sep 23 [Moles/vo informati 2016 9:05 lume] in on in AM Serum or source Plasma data Aspartate 15 - 37 U/L Normal No Sep 23 inform2016 9:05 aminotran on in AM sferase source [Enzymati data c activity/ volume] in Serum or Plasma Alanine 12 - 78 U/L Normal No Sep 23 aminotran ati 2016 9:05 sferase on in AM [Enzymati source c data activity/ volume] in Serum or Plasma Protein 6.4 - 8.2 gm/dL Low No Sep 23 [Mass/vol informati 2016 9:05 ume] in on in AM Serum or source Plasma data Vancomycin [Mass/volume] in Serum or Plasma --trough Observa Value Referen Units Interpr Notes Date tion ce etation Range Vancomyci 10.0 - mcg/mL Low RESULTS Sep 23 n 20.0 CALLED TO 2017 9:05 [Mass/vol AM ume] in PHARMACIS Serum or T: JHOAN Plasma 09/23/17 --trough 0935 [place] nda CBC W Auto Differential panel in Blood Observa Value Referen Units Interpr Notes Date tion ce etation Range Basophils 0 - 0.2 K/MM3 Normal No Sep 2 2016 9:30 [#/volume on in AM ] in source Blood by data Automated count Basophils 0.1 - 2.0 % Normal No Sep 2 informati 2016 9:30 leukocyte on in AM s in source Blood by data Automated count Eosinophi 0.0 - 0.4 K/mm3 Normal No Nov 2 ls informati 2017 9:30 [#/volume on in AM ] in source Blood by data Automated count Eosinophi 0.1 - % Normal No Nov 2 ls/100 12.0 informati 2017 9:30 leukocyte on in AM s in source Blood by data Automated count Granulocy 1.8 - 7.8 K/mm3 Normal No Nov 2 carrie informati 2017 9:30 [#/volume on in AM ] in source Blood by data Automated count Granulocy 37.0 - % High No Nov 2 carrie/100 80.0 informati 2017 9:30 leukocyte on in AM s in source Blood by data Automated count Hematocri 37.0 - % Low No Nov 2 t [Volume 47.0 informati 2017 9:30 on in AM Fraction] source of Blood data Hemoglobi 12.2 - g/dL Low No Nov 2 n 16.2 informati 2017 9:30 [Mass/vol on in AM ume] in source Blood data Lymphocyt 0.7 - 4.5 K/mm3 Low No Nov 2 es informati 2017 9:30 [#/volume on in AM ] in source Unspecifi data ed specimen by Automated count Lymphocyt 10 - 50.0 % Low No Nov 2 es informati 2017 9:30 [#/volume on in AM ] in source Unspecifi data ed specimen by Automated count Erythrocy 27 - 31.2 pg High No Nov 2 te mean informati 2017 9:30 corpuscul on in AM ar source hemoglobi data n [Entitic mass] Erythrocy 31.8 - g/dl Low No Nov 2 te mean 35.4 informati 2017 9:30 corpuscul on in AM ar source hemoglobi data n concentra tion [Mass/vol ume] by Automated count Erythrocy 82.2 - fl High No Nov 2 te mean 97.8 informati 2017 9:30 corpuscul on in AM ar volume source [Entitic data volume] by Automated count Monocytes 0.1 - 1.0 K/mm3 Normal No Nov 2 informati 2017 9:30 [#/volume on in AM ] in source Blood by data Automated count Monocytes 1.7 - 9.3 % Normal No Nov 2 /100 informati 2017 9:30 leukocyte on in AM s in source Blood by data Automated count Platelet 7.4 - fl High No Nov 2 mean 10.4 informati 2017 9:30 volume on in AM [Entitic source volume] data in Blood by Automated count Platelets 142 - 424 K/mm3 Low alert Nov 2 NOTIFICAT 2017 9:30 [#/volume ION AM ] in RESULT Blood Arielle ingram Erythrocy 4.2 - 5.4 M/mm3 Low No Nov 2 carrie informati 2017 9:30 [#/volume on in AM ] in source Amniotic data fluid Erythrocy 11.5 - % High No Nov 2 te 17.5 alert informati 2017 9:30 distribut on in AM ion width source [Entitic data volume] by Automated count Leukocyte 4.8 - K/MM3 Low No Nov 2 s 10.8 informati 2017 9:30 [#/volume on in AM ] in source Blood data Differential panel, method unspecified - Observa Value Referen Units Interpr Notes Date tion ce etation Range Acantho 2+ No No No No Nov 2 cytes informa informa informa informa 2016 [Presen tion in tion in tion in tion in 9:30 AM ce] in source source source source Blood data data data data by Light microsc opy Anisocy 3+ No No No No Nov 2 tosis informa informa informa informa 2016 [Presen tion in tion in tion in tion in 9:30 AM ce] in source source source source Blood data data data data Cedric 1+ No No No No Nov 2 cells informa informa informa informa 2016 [Presen tion in tion in tion in tion in 9:30 AM ce] in source source source source Blood data data data data by Light microsc opy LYMPH 5 10 - 50 % Low No Nov 2 informa 2017 tion in 9:30 AM source data Macrocy 2+ No No No No Nov 2 carrie informa informa informa informa 2017 [Presen tion in tion in tion in tion in 9:30 AM ce] in source source source source Blood data data data data Monocytes 2 - 9 % Normal No Nov 2 /100 informati 2016 9:30 leukocyte on in AM s in source Blood by data Automated count Platele MARKED No No No No Nov 2 ts DECREAS informa informa informa informa 2017 [Presen E tion in tion in tion in tion in 9:30 AM ce] in source source source source Blood data data data data by Light microsc opy Polychr 1+ No No No No Nov 2 omasia informa informa informa informa 2016 [Presen tion in tion in tion in tion in 9:30 AM ce] in source source source source Blood data data data data by Light microsc opy Neutrophi 42 - 76 % High No Sep 2 ls informati 2016 9:30 [#/volume on in AM ] in source Blood by data Automated count Cells No #CELLS No No Nov 2 Counted informati informati informati 2016 9:30 Total [#] on in on in on in AM in Blood source source source data data data INR in Blood by Coagulation assay Observa Value Referen Units Interpr Notes Date tion ce etation Range IS PATIENT ON ANTICOAGULANTS? Y LIST ANTICOAGULANTS: COUMADIN PTT RESULTS MUST BE CALLED IF PT ON HEPARIN!!! Y INR in 0.9 - 1.1 No High INDICATIO Nov 2 Blood by informati N 2016 9:30 Coagulati on in AM on assay source INR data RANGETHER APY FOR DVT, PE, ATRIAL FIB; 2.0 - 3.0PROPHY LAXIS FOR VTETHERAP Y FOR MECHANICA L HEART 2.5 - 3.5VALVE; PREVENTIO N OF SYSTEMICE MBOLISM SECONDARY TO AMI Prothromb 9.4 - SECONDS High No Nov 2 in time 11.8 informati 2017 9:30 (PT) in on in AM Platelet source poor data plasma by Coagulati on assay Comprehensive metabolic 2000 panel in Serum or Plasma Observa Value Referen Units Interpr Notes Date tion ce etation Range Albumin/G 1.1 - 1.8 No Low No Nov 2 lobulin informati informati 2016 9:30 [Mass on in on in AM ratio] in source source Serum or data data Plasma Albumin 3.4 - 5.0 gm/dL Low No Nov 2 [Mass/vol informati 2016 9:30 ume] in on in AM Serum or source Plasma data Alkaline 46 - 116 U/L Normal No Nov 2 phosphata informati 2016 9:30 se on in AM [Enzymati source c data activity/ volume] in Serum or Plasma Bilirubin 0.2 - 1.0 mg/dL Normal No Nov 2 .total informati 2017 9:30 [Mass/vol on in AM ume] in source Serum or data Plasma Urea 7 - 18 mg/dL High No Sep 2 nitrogen informati 2016 9:30 [Mass/vol on in AM ume] in source Serum or data Plasma Calcium 8.5 - mg/dL Low No Sep 2 [Mass/vol 10.1 informati 2017 9:30 ume] in on in AM Serum or source Plasma data Chloride 98 - 107 mmoL/L High No Sep 2 [Moles/vo informati 2016 9:30 lume] in on in AM Serum or source Plasma data Carbon 21.0 - mmoL/L Low No Sep 2 dioxide, 32.0 informati 2017 9:30 total on in AM [Moles/vo source lume] in data Serum or Plasma Creatinin 0.55 - mg/dL High No Nov 2 e 1.02 informati 2017 9:30 [Mass/vol on in AM ume] in source Serum or data Plasma Creatinin 50 - 200 ML/MIN Low No Sep 2 e renal informati 2016 9:30 clearance on in AM source predicted data by Cockcroft -Gault formula Estimated 59- ML/MIN Low REFERENCE Nov 2 RANGE: 2017 9:30 glomerula >60 AM r ML/MIN/1. filtratio 73 SQUARE n rate METERSIf (GF this patient is -A merican, then multiply theresult by 1.210. Globulin 1.3 - 3.2 gm/dL High No Sep 2 [Mass/vol informati 2016 9:30 ume] in on in AM Serum source data Glucose 74 - 106 mg/dL High No Sep 2 [Mass/vol informati 2016 9:30 ume] in on in AM Serum or source Plasma data Potassium 3.5 - 5.1 mmoL/L Normal No Sep 2 informati 2016 9:30 [Moles/vo on in AM lume] in source Serum or data Plasma Sodium 136 - 145 mmoL/L Normal No Sep 2 [Moles/vo informati 2016 9:30 lume] in on in AM Serum or source Plasma data Aspartate 15 - 37 U/L Normal No Sep 2 informati 2016 9:30 aminotran on in AM sferase source [Enzymati data c activity/ volume] in Serum or Plasma Alanine 12 - 78 U/L Normal No Sep 2 aminotran informati 2016 9:30 sferase on in AM [Enzymati source c data activity/ volume] in Serum or Plasma Protein 6.4 - 8.2 gm/dL Low No Sep 21 [Mass/vol informati 2016 9:30 ume] in on in AM Serum or source Plasma data Creatine kinase [Enzymatic activity/volume] in Serum or Plasma Observa Value Referen Units Interpr Notes Date tion ce etation Range Creatine 26 - 192 U/L Normal No Sep 21 kinase informati 2016 9:30 [Enzymati on in AM c source activity/ data volume] in Serum or Plasma Creatine kinase [Enzymatic activity/volume] in Serum or Plasma Observa Value Referen Units Interpr Notes Date tion ce etation Range Creatine 26 - 192 U/L High No Sep 20 kinase informati 2016 6:00 [Enzymati on in PM c source activity/ data volume] in Serum or Plasma CBC W Auto Differential panel in Blood Observa Value Referen Units Interpr Notes Date ti ce etation Range Basophils 0 - 0.2 K/MM3 Normal No Sep 19 informati 2016 4:30 [#/volume on in PM ] in source Blood by data Automated count Basophils 0.1 - 2.0 % Normal No Sep 19 informati 2016 4:30 leukocyte on in PM s in source Blood by data Automated count Eosinophi 0.0 - 0.4 K/mm3 Normal No Sep 19 ls informati 2016 4:30 [#/volume on in PM ] in source Blood by data Automated count Eosinophi 0.1 - % Normal No Sep 19 ls/100 12.0 informati 2016 4:30 leukocyte on in PM s in source Blood by data Automated count Granulocy 1.8 - 7.8 K/mm3 Normal No Sep 19 carrie informati 2016 4:30 [#/volume on in PM ] in source Blood by data Automated count Granulocy 37.0 - % Normal No Sep 19 carrie/100 80.0 informati 2016 4:30 leukocyte on in PM s in source Blood by data Automated count Hematocri 37.0 - % Low No Sep 19 t [Volume 47.0 informati 2016 4:30 on in PM Fraction] source of Blood data Hemoglobi 12.2 - g/dL Low No Sep 19 n 16.2 informati 2016 4:30 [Mass/vol on in PM ume] in source Blood data Lymphocyt 0.7 - 4.5 K/mm3 Normal No Sep 19 es informati 2017 4:30 [#/volume on in PM ] in source Unspecifi data ed specimen by Automated count Lymphocyt 10 - 50.0 % Normal No Sep 19 es informati 2016 4:30 [#/volume on in PM ] in source Unspecifi data ed specimen by Automated count Erythrocy 27 - 31.2 pg High No Sep 19 te mean informati 2016 4:30 corpuscul on in PM ar source hemoglobi data n [Entitic mass] Erythrocy 31.8 - g/dl Low No Sep 19 te mean 35.4 informati 2017 4:30 corpuscul on in PM ar source hemoglobi data n concentra tion [Mass/vol ume] by Automated count Erythrocy 82.2 - fl High No Sep 19 te mean 97.8 informati 2016 4:30 corpuscul on in PM ar volume source [Entitic data volume] by Automated count Monocytes 0.1 - 1.0 K/mm3 Normal No Sep 19 informati 2016 4:30 [#/volume on in PM ] in source Blood by data Automated count Monocytes 1.7 - 9.3 % Normal No Sep 19 /100 informati 2017 4:30 leukocyte on in PM s in source Blood by data Automated count Platelet 7.4 - fl High No Sep 19 mean 10.4 informati 2017 4:30 volume on in PM [Entitic source volume] data in Blood by Automated count Platelets 142 - 424 K/mm3 Low alert Sep 19 NOTIFICAT 2017 4:30 [#/volume ION PM ] in RESULT Blood Erythrocy 4.2 - 5.4 M/mm3 Low No Sep 19 carrie informati 2017 4:30 [#/volume on in PM ] in source Amniotic data fluid Erythrocy 11.5 - % High No Sep 19 te 17.5 alert informati 2017 4:30 distribut on in PM ion width source [Entitic data volume] by Automated count Leukocyte 4.8 - K/MM3 Normal No Sep 19 s 10.8 informati 2016 4:30 [#/volume on in PM ] in source Blood data Vancomycin [Mass/volume] in Serum or Plasma --trough Observa Value Referen Units Interpr Notes Date tion ce etation Range COMMENTS TO JEWEL[employer]: USE AM LAB IF POSSIBLE Vancomyci 10.0 - mcg/mL Low RESULTS Sep 19 n 20.0 CALLED TO 2017 6:40 [Mass/vol AM ume] in PHARMACIS Serum or T: TERRA Plasma 09/19/17 --trough 0908 [address] Marina Gurrola CBC W Auto Differential panel in Blood Observa Value Referen Units Interpr Notes Date tion ce etation Range Basophils 0 - 0.2 K/MM3 Normal No Sep 19 informati 2016 6:40 [#/volume on in AM ] in source Blood by data Automated count Basophils 0.1 - 2.0 % Normal No Sep 19 informati 2016 6:40 leukocyte on in AM s in source Blood by data Automated count Eosinophi 0.0 - 0.4 K/mm3 Normal No Sep 19 ls informati 2016 6:40 [#/volume on in AM ] in source Blood by data Automated count Eosinophi 0.1 - % Normal No Sep 19 ls/100 12.0 informati 2016 6:40 leukocyte on in AM s in source Blood by data Automated count Granulocy 1.8 - 7.8 K/mm3 Normal No Sep 19 carrie informati 2016 6:40 [#/volume on in AM ] in source Blood by data Automated count Granulocy 37.0 - % Normal No Sep 19 carrie/100 80.0 informati 2016 6:40 leukocyte on in AM s in source Blood by data Automated count Hematocri 37.0 - % Low No Sep 19 t [Volume 47.0 informati 2016 6:40 on in AM Fraction] source of Blood data Hemoglobi 12.2 - g/dL Low No Sep 19 n 16.2 informati 2016 6:40 [Mass/vol on in AM ume] in source Blood data Lymphocyt 0.7 - 4.5 K/mm3 Normal No Sep 19 es informati 2016 6:40 [#/volume on in AM ] in source Unspecifi data ed specimen by Automated count Lymphocyt 10 - 50.0 % Normal No Sep 19 es informati 2016 6:40 [#/volume on in AM ] in source Unspecifi data ed specimen by Automated count Erythrocy 27 - 31.2 pg High No Sep 19 te mean informati 2016 6:40 corpuscul on in AM ar source hemoglobi data n [Entitic mass] Erythrocy 31.8 - g/dl Normal No Sep 19 te mean 35.4 informati 2016 6:40 corpuscul on in AM ar source hemoglobi data n concentra tion [Mass/vol ume] by Automated count Erythrocy 82.2 - fl High No Sep 19 te mean 97.8 informati 2017 6:40 corpuscul on in AM ar volume source [Entitic data volume] by Automated count Monocytes 0.1 - 1.0 K/mm3 Normal No Sep 19 informati 2017 6:40 [#/volume on in AM ] in source Blood by data Automated count Monocytes 1.7 - 9.3 % Normal No Sep 19 /100 informati 2017 6:40 leukocyte on in AM s in source Blood by data Automated count Platelet 7.4 - fl Normal No Sep 19 mean 10.4 informati 2017 6:40 volume on in AM [Entitic source volume] data in Blood by Automated count Platelets 142 - 424 K/mm3 Low alert Sep 19 NOTIFICAT 2017 6:40 [#/volume ION AM ] in RESULT Blood Arielle ne Erythrocy 4.2 - 5.4 M/mm3 Low No Sep 19 carrie informati 2017 6:40 [#/volume on in AM ] in source Amniotic data fluid Erythrocy 11.5 - % High No Sep 19 te 17.5 alert informati 2017 6:40 distribut on in AM ion width source [Entitic data volume] by Automated count Leukocyte 4.8 - K/MM3 Normal No Sep 19 s 10.8 informati 2017 6:40 [#/volume on in AM ] in source Blood data Basic metabolic panel in Blood Observa Value Referen Units Interpr Notes Date tion ce etation Range Urea 7 - 18 mg/dL High No Sep 19 nitrogen informati 2017 6:40 [Mass/vol on in AM ume] in source Serum or data Plasma Calcium 8.5 - mg/dL Low No Sep 19 [Mass/vol 10.1 informati 2017 6:40 ume] in on in AM Serum or source Plasma data Chloride 98 - 107 mmoL/L High No Sep 19 [Moles/vo informati 2017 6:40 lume] in on in AM Serum or source Plasma data Carbon 21.0 - mmoL/L Low No Sep 19 dioxide, 32.0 informati 2017 6:40 total on in AM [Moles/vo source lume] in data Serum or Plasma Creatinin 0.55 - mg/dL High No Sep 19 e 1.02 informati 2017 6:40 [Mass/vol on in AM ume] in source Serum or data Plasma Creatinin 50 - 200 ML/MIN Low No Sep 19 e renal informati 2017 6:40 clearance on in AM source predicted data by Cockcroft -Gault formula Estimated 59- ML/MIN Low REFERENCE Sep 19 RANGE: 2017 6:40 glomerula >60 AM r ML/MIN/1. filtratio 73 SQUARE n rate METERSIf (GF this patient is -A merican, then multiply theresult by 1.210. Glucose 74 - 106 mg/dL Normal No Sep 19 [Mass/vol informati 2016 6:40 ume] in on in AM Serum or source Plasma data Potassium 3.5 - 5.1 mmoL/L Normal No Sep 19 informati 2016 6:40 [Moles/vo on in AM lume] in source Serum or data Plasma Sodium 136 - 145 mmoL/L Normal No Sep 19 [Moles/vo informati 2016 6:40 lume] in on in AM Serum or source Plasma data CBC W Auto Differential panel in Blood Observa Value Referen Units Interpr Notes Date tion ce etation Range Basophils 0 - 0.2 K/MM3 Normal No Sep 18 informati 2016 6:20 [#/volume on in AM ] in source Blood by data Automated count Basophils 0.1 - 2.0 % Normal No Sep 18 informati 2017 6:20 leukocyte on in AM s in source Blood by data Automated count Eosinophi 0.0 - 0.4 K/mm3 Normal No Sep 18 ls informati 2016 6:20 [#/volume on in AM ] in source Blood by data Automated count Eosinophi 0.1 - % Normal No Sep 18 ls/100 12.0 informati 2016 6:20 leukocyte on in AM s in source Blood by data Automated count Granulocy 1.8 - 7.8 K/mm3 Normal No Sep 18 carrie informati 2016 6:20 [#/volume on in AM ] in source Blood by data Automated count Granulocy 37.0 - % Normal No Sep 18 carrie/100 80.0 informati 2016 6:20 leukocyte on in AM s in source Blood by data Automated count Hematocri 37.0 - % Low No Sep 18 t [Volume 47.0 informati 2016 6:20 on in AM Fraction] source of Blood data Hemoglobi 12.2 - g/dL Low No Oct 30 n 16.2 informati 2017 6:20 [Mass/vol on in AM ume] in source Blood data Lymphocyt 0.7 - 4.5 K/mm3 Low No Sep 18 es informati 2017 6:20 [#/volume on in AM ] in source Unspecifi data ed specimen by Automated count Lymphocyt 10 - 50.0 % Normal No Sep 18 es informati 2017 6:20 [#/volume on in AM ] in source Unspecifi data ed specimen by Automated count Erythrocy 27 - 31.2 pg High No Sep 18 te mean informati 2017 6:20 corpuscul on in AM ar source hemoglobi data n [Entitic mass] Erythrocy 31.8 - g/dl Low No Sep 18 te mean 35.4 informati 2017 6:20 corpuscul on in AM ar source hemoglobi data n concentra tion [Mass/vol ume] by Automated count Erythrocy 82.2 - fl High No Sep 18 te mean 97.8 informati 2017 6:20 corpuscul on in AM ar volume source [Entitic data volume] by Automated count Monocytes 0.1 - 1.0 K/mm3 Normal No Sep 18 informati 2017 6:20 [#/volume on in AM ] in source Blood by data Automated count Monocytes 1.7 - 9.3 % Normal No Aug 30 /100 informati 2017 6:20 leukocyte on in AM s in source Blood by data Automated count Platelet 7.4 - fl High No Sep 18 mean 10.4 informati 2017 6:20 volume on in AM [Entitic source volume] data in Blood by Automated count Platelets 142 - 424 K/mm3 Low alert Sep 18 NOTIFICAT 2017 6:20 [#/volume ION AM ] in RESULT Blood Arielle ne Erythrocy 4.2 - 5.4 M/mm3 Low No Aug 30 carrie informati 2017 6:20 [#/volume on in AM ] in source Amniotic data fluid Erythrocy 11.5 - % High No Sep 18 te 17.5 alert informati 2017 6:20 distribut on in AM ion width source [Entitic data volume] by Automated count Leukocyte 4.8 - K/MM3 No No Aug 30 s 10.8 informati informati 2017 6:20 [#/volume on in on in AM ] in source source Blood data data Basic metabolic panel in Blood Observa Value Referen Units Interpr Notes Date tion ce etation Range Urea 7 - 18 mg/dL High Sep 18 nitrogen NOTIFICAT 2017 6:20 [Mass/vol ION AM ume] in RESULT Serum or Arielle Plasma ne Calcium 8.5 - mg/dL Low No Sep 18 [Mass/vol 10.1 informati 2017 6:20 ume] in on in AM Serum or source Plasma data Chloride 98 - 107 mmoL/L High No Sep 18 [Moles/vo informati 2016 6:20 lume] in on in AM Serum or source Plasma data Carbon 21.0 - mmoL/L Low No Sep 18 dioxide, 32.0 informati 2017 6:20 total on in AM [Moles/vo source lume] in data Serum or Plasma Creatinin 0.55 - mg/dL High No Sep 18 e 1.02 informati 2017 6:20 [Mass/vol on in AM ume] in source Serum or data Plasma Creatinin 50 - 200 ML/MIN Low No Sep 18 e renal informati 2016 6:20 clearance on in AM source predicted data by Cockcroft -Gault formula Estimated 59- ML/MIN Low alert REFERENCE Sep 18 RANGE: 2017 6:20 glomerula >60 AM r ML/MIN/1. filtratio 73 SQUARE n rate METERSIf (GF this patient is -A merican, then multiply theresult by 1.210. Glucose 74 - 106 mg/dL Normal No Sep 18 [Mass/vol informati 2016 6:20 ume] in on in AM Serum or source Plasma data Potassium 3.5 - 5.1 mmoL/L Normal No Sep 18 informati 2016 6:20 [Moles/vo on in AM lume] in source Serum or data Plasma Sodium 136 - 145 mmoL/L Normal No Sep 18 [Moles/vo informati 2016 6:20 lume] in on in AM Serum or source Plasma data INR in Blood by Coagulation assay Observa Value Referen Units Interpr Notes Date tion ce etation Range IS PATIENT ON ANTICOAGULANTS? N PTT RESULTS MUST BE CALLED IF PT ON HEPARIN!!! Y INR in 0.9 - 1.1 No High INDICATIO Sep 18 Blood by informati N 2016 6:20 Coagulati on in AM on assay source INR data RANGETHER APY FOR DVT, PE, ATRIAL FIB; 2.0 - 3.0PROPHY LAXIS FOR VTETHERAP Y FOR MECHANICA L HEART 2.5 - 3.5VALVE; PREVENTIO N OF SYSTEMICE MBOLISM SECONDARY TO AMI Prothromb 9.4 - SECONDS High No Aug 30 in time 11.8 informati 2017 6:20 (PT) in on in AM Platelet source poor data plasma by Coagulati on assay INR in Blood by Coagulation assay Observa Value Referen Units Interpr Notes Date tion ce etation Range IS PATIENT ON ANTICOAGULANTS? N PTT RESULTS MUST BE CALLED IF PT ON HEPARIN!!! Y INR in 0.9 - 1.1 No High INDICATIO Sep 17 Blood by informati N 2016 6:15 Coagulati on in AM on assay source INR data RANGETHER APY FOR DVT, PE, ATRIAL FIB; 2.0 - 3.0PROPHY LAXIS FOR VTETHERAP Y FOR MECHANICA L HEART 2.5 - 3.5VALVE; PREVENTIO N OF SYSTEMICE MBOLISM SECONDARY TO AMI Prothromb 9.4 - SECONDS High No Sep 17 in time 11.8 informati 2017 6:15 (PT) in on in AM Platelet source poor data plasma by Coagulati on assay Basic metabolic panel in Blood Observa Value Referen Units Interpr Notes Date tion ce etation Range Urea 7 - 18 mg/dL High Sep 17 nitrogen alert NOTIFICAT 2017 6:15 [Mass/vol ION AM ume] in RESULT Serum or Plasma Calcium 8.5 - mg/dL Low No Sep 17 [Mass/vol 10.1 informati 2017 6:15 ume] in on in AM Serum or source Plasma data Chloride 98 - 107 mmoL/L Normal No Sep 17 [Moles/vo informati 2017 6:15 lume] in on in AM Serum or source Plasma data Carbon 21.0 - mmoL/L Low No Sep 17 dioxide, 32.0 informati 2017 6:15 total on in AM [Moles/vo source lume] in data Serum or Plasma Creatinin 0.55 - mg/dL High No Sep 17 e 1.02 informati 2017 6:15 [Mass/vol on in AM ume] in source Serum or data Plasma Creatinin 50 - 200 ML/MIN Low No Sep 17 e renal informati 2017 6:15 clearance on in AM source predicted data by Cockcroft -Gault formula Estimated 59- ML/MIN Low alert REFERENCE Sep 17 RANGE: 2017 6:15 glomerula >60 AM r ML/MIN/1. filtratio 73 SQUARE n rate METERSIf (GF this patient is -A merican, then multiply theresult by 1.210. Glucose 74 - 106 mg/dL Normal No Sep 17 [Mass/vol informati 2016 6:15 ume] in on in AM Serum or source Plasma data Potassium 3.5 - 5.1 mmoL/L Normal No Sep 17 informati 2016 6:15 [Moles/vo on in AM lume] in source Serum or data Plasma Sodium 136 - 145 mmoL/L Low No Sep 17 [Moles/vo informati 2016 6:15 lume] in on in AM Serum or source Plasma data Creatine kinase [Enzymatic activity/volume] in Serum or Plasma Observa Value Referen Units Interpr Notes Date tion ce etation Range Creatine 26 - 192 U/L High No Sep 17 kinase informati 2016 6:15 [Enzymati on in AM c source activity/ data volume] in Serum or Plasma CBC W Auto Differential panel in Blood Observa Value Referen Units Interpr Notes Date tion ce etation Range Basophils 0 - 0.2 K/MM3 Normal No Sep 17 informati 2016 6:15 [#/volume on in AM ] in source Blood by data Automated count Basophils 0.1 - 2.0 % Normal No Sep 17 / informati 2016 6:15 leukocyte on in AM s in source Blood by data Automated count Eosinophi 0.0 - 0.4 K/mm3 Normal No Sep 17 ls informati 2016 6:15 [#/volume on in AM ] in source Blood by data Automated count Eosinophi 0.1 - % Normal No Sep 17 ls/100 12.0 informati 2016 6:15 leukocyte on in AM s in source Blood by data Automated count Granulocy 1.8 - 7.8 K/mm3 Normal No Sep 17 carrie informati 2016 6:15 [#/volume on in AM ] in source Blood by data Automated count Granulocy 37.0 - % High No Sep 17 carrie/100 80.0 informati 2016 6:15 leukocyte on in AM s in source Blood by data Automated count Hematocri 37.0 - % Low No Sep 17 t [Volume 47.0 informati 2016 6:15 on in AM Fraction] source of Blood data Hemoglobi 12.2 - g/dL Low No Sep 17 n 16.2 informati 2016 6:15 [Mass/vol on in AM ume] in source Blood data Lymphocyt 0.7 - 4.5 K/mm3 Normal No Sep 17 es informati 2016 6:15 [#/volume on in AM ] in source Unspecifi data ed specimen by Automated count Lymphocyt 10 - 50.0 % Normal No Sep 17 es informati 2016 6:15 [#/volume on in AM ] in source Unspecifi data ed specimen by Automated count Erythrocy 27 - 31.2 pg High No Sep 17 te mean informati 2017 6:15 corpuscul on in AM ar source hemoglobi data n [Entitic mass] Erythrocy 31.8 - g/dl Normal No Sep 17 te mean 35.4 informati 2017 6:15 corpuscul on in AM ar source hemoglobi data n concentra tion [Mass/vol ume] by Automated count Erythrocy 82.2 - fl High No Sep 17 te mean 97.8 informati 2017 6:15 corpuscul on in AM ar volume source [Entitic data volume] by Automated count Monocytes 0.1 - 1.0 K/mm3 Normal No Sep 17 informati 2017 6:15 [#/volume on in AM ] in source Blood by data Automated count Monocytes 1.7 - 9.3 % Normal No Sep 17 /100 informati 2017 6:15 leukocyte on in AM s in source Blood by data Automated count Platelet 7.4 - fl High No Sep 17 mean 10.4 informati 2017 6:15 volume on in AM [Entitic source volume] data in Blood by Automated count Platelets 142 - 424 K/mm3 Low alert Sep 17 NOTIFICAT 2017 6:15 [#/volume ION AM ] in RESULT Blood Erythrocy 4.2 - 5.4 M/mm3 Low No Sep 17 carrie informati 2017 6:15 [#/volume on in AM ] in source Amniotic data fluid Erythrocy 11.5 - % High No Sep 17 te 17.5 alert informati 2017 6:15 distribut on in AM ion width source [Entitic data volume] by Automated count Leukocyte 4.8 - K/MM3 Normal No Sep 17 s 10.8 informati 2016 6:15 [#/volume on in AM ] in source Blood data Hemoglobin & Hematocrit panel in Blood Observa Value Referen Units Interpr Notes Date tion ce etation Range Hematocri 37.0 - % Low No Sep 16 t [Volume 47.0 informati 2016 9:25 on in PM Fraction] source of Blood data Hemoglobi 12.2 - g/dL Low No Sep 16 n 16.2 informati 2017 9:25 [Mass/vol on in PM ume] in source Blood data Hemoglobin & Hematocrit panel in Blood Observa Value Referen Units Interpr Notes Date tion ce etation Range Hematocri 37.0 - % Low No Sep 16 t [Volume 47.0 informati 2016 3:58 on in PM Fraction] source of Blood data Hemoglobi 12.2 - g/dL Low No Sep 16 n 16.2 informati 2016 3:58 [Mass/vol on in PM ume] in source Blood data Urinalysis dipstick W Reflex Microscopic panel in Urine Observa Value Referen Units Interpr Notes Date tion ce etation Range Collected by nurse? Y Hold specimen in OE? N Appeara CLOUDY CLEAR No No No Sep 16 nce of informa informa informa 2016 Urine tion in tion in tion in 2:50 PM source source source data data data Bacteri 1+ O No No No Sep 16 a informa informa informa 2016 [Presen tion in tion in tion in 2:50 PM ce] in source source source Urine data data data sedimen t by Light microsc opy Bilirub 2+ NEG No Abnorma BILIRUB Sep 16 in informa l IN 2016 [Presen tion in CONFIRM 2:50 PM ce] in source ED WITH Urine data by Test ICTOTES strip TICTOTE ST NEGATIV E Erythro 3+ NEG No Abnorma No Sep 16 cytes informa l informa 2016 [Presen tion in tion in 2:50 PM ce] in source source Urine data data Color OTHER YELLOW No No No Sep 16 of informa informa informa 2016 Urine tion in tion in tion in 2:50 PM source source source data data data Glucose NEG No No No Sep 16 [Mass/vol informati informati informati 2016 2:50 ume] in on in on in on in PM Urine by source source source Test data data data strip Ketones TRACE NEG mg/dL Abnorma No Sep 16 l informa 2016 [Presen tion in 2:50 PM ce] in source Urine data by Automat ed test strip Mucus 2+ NEG No Abnorma No Sep 16 [Presen informa l inform2016 ce] in tion in tion in 2:50 PM Urine source source sedimen data data t by Light microsc opy Nitrite POSITIV NEG No Abnorma No Sep 16 E informa l informa 2016 [Presen tion in tion in 2:50 PM ce] in source source Urine data data by Test strip pH of 5.0 - 8.5 No Normal No Sep 16 Urine informati informati 2017 2:50 on in on in PM source source data data Protein NEG mg/dL High No Sep 16 [Mass/vol informati 2016 2:50 ume] in on in PM Urine by source Automated data test strip Erythro 10-20 0 rbc/hpf No No Sep 16 cytes informa informa 2016 [Presen tion in tion in 2:50 PM ce] in source source Urine data data sedimen t by Light microsc opy Specific 1.005 - No Normal No Sep 16 gravity 1.030 informati informati 2017 2:50 of Urine on in on in PM source source data data Epithel NONE 0 - 5 #/hpf No No Sep 16 ial informa inform2016 cells.s tion in tion in 2:50 PM quamous source source data data [Presen ce] in Urine sedimen t by Microsc opy high power field Urobili 1.0 NEG E.U./dL No No Sep 16 nogen informa informa 2016 [Presen tion in tion in 2:50 PM ce] in source source Urine data data by Test strip Leukocy [10 O wbc/hpf No No Sep 16 carrie wbc/hpf informa informa 2016 [#/volu ; 20 tion in tion in 2:50 PM me] in wbc/hpf source source Urine ] data data Urinalysis dipstick W Reflex Microscopic panel in Urine Observa Value Referen Units Interpr Notes Date tion ce etation Range Collected by nurse? Y Hold specimen in OE? N Appeara CLOUDY CLEAR No No No Sep 16 nce of informa informa informa 2017 Urine tion in tion in tion in 2:50 PM source source source data data data Bilirub 2+ NEG No Abnorma BILIRUB Sep 16 in informa l IN 2016 [Presen tion in CONFIRM 2:50 PM ce] in source ED WITH Urine data by Test ICTOTES strip TICTOTE ST NEGATIV E Erythro 3+ NEG No Abnorma No Sep 16 cytes informa l inform2016 [Presen tion in tion in 2:50 PM ce] in source source Urine data data Color OTHER YELLOW No No No Sep 16 of informa informa informa 2016 Urine tion in tion in tion in 2:50 PM source source source data data data Glucose NEG No No No Sep 16 [Mass/vol informati informati informati 2016 2:50 ume] in on in on in on in PM Urine by source source source Test data data data strip Ketones TRACE NEG mg/dL Abnorma No Sep 16 l inform2016 [Presen tion in 2:50 PM ce] in source Urine data by Automat ed test strip Mucus 2+ NEG No Abnorma No Sep 16 [Presen informa l inform2016 ce] in tion in tion in 2:50 PM Urine source source sedimen data data t by Light microsc opy Nitrite POSITIV NEG No Abnorma No Sep 16 E informa l inform2016 [Presen tion in tion in 2:50 PM ce] in source source Urine data data by Test strip pH of 5.0 - 8.5 No Normal No Sep 16 Urine informati informati 2017 2:50 on in on in PM source source data data Protein NEG mg/dL High No Sep 16 [Mass/vol informati 2016 2:50 ume] in on in PM Urine by source Automated data test strip Specific 1.005 - No Normal No Sep 16 gravity 1.030 informati informati 2016 2:50 of Urine on in on in PM source source data data Urobili 1.0 NEG E.U./dL No No Sep 16 nogen informa informa 2016 [Presen tion in tion in 2:50 PM ce] in source source Urine data data by Test strip Blood product special preparation [Type] Observa Value Referen Units Interpr Notes Date tion ce etation Range Blood BLOOD No No No BLOOD Sep 16 product UNIT informa informa informa UNIT # 2017 RELEASE tion in tion in tion in : W0382 12:57 special source source source 17 PM data data data [id number] prepara RELEASE tion D [Type] 7BJairo quevedo [id number] POSITIV E Blood product special preparation [Type] Observa Value Referen Units Interpr Notes Date ti ce etation Range Blood BLOOD No No No BLOOD Sep 16 product UNIT informa informa informa UNIT # 2017 RELEASE tion in tion in tion in : W0382 9:55 AM special source source source 17 data data data [id number] prepara [id number] tion RELEASE [Type] D 7O'Maris Jessica n Cardiac enzymes Observa Value Referen Units Interpr Notes Date ti ce etation Range Creatine 0 - 4.0 U/L No No Sep 16 kinase.MB informati informati 2017 6:10 /Creatine on in on in AM source source kinase.to data data anuja [Ratio] in Serum or Plasma Creatine 0.0 - 3.6 ng/mL High No Sep 16 kinase.MB informati 2017 6:10 on in AM [Mass/vol source ume] in data Serum or Plasma Creatine 26 - 192 U/L High No Sep 16 kinase informati 2017 6:10 [Enzymati on in AM c source activity/ data volume] in Serum or Plasma Troponin 0.00 - ng/mL High 0.04 - Sep 16 I.cardiac 0.06 0.49 IS 2017 6:10 AN AM [Mass/vol INDETERMI ume] in NANT Serum or ZONEAnd Plasma can be consisten t with the following diseases: Trauma Criticall y ill patients Alberto >30% TBSACHF Hypothyro idism Amyloidos isHyperte nsion Myocardit is SepsisHyp otension Rhabdomyo lysis Vital exhaust.P ostop surgery Pulmonary embolism CVARenal failure Acute neurologi ashley disease Atrial fib. Comprehensive metabolic 2000 panel in Serum or Plasma Observa Value Referen Units Interpr Notes Date tion ce etation Range Albumin/G 1.1 - 1.8 No Low No Sep 16 lobulin informati informati 2017 6:10 [Mass on in on in AM ratio] in source source Serum or data data Plasma Albumin 3.4 - 5.0 gm/dL Low No Sep 16 [Mass/vol informati 2017 6:10 ume] in on in AM Serum or source Plasma data Alkaline 46 - 116 U/L Normal No Oct 28 phosphata informati 2017 6:10 se on in AM [Enzymati source c data activity/ volume] in Serum or Plasma Bilirubin 0.2 - 1.0 mg/dL Normal No Sep 16 .total informati 2017 6:10 [Mass/vol on in AM ume] in source Serum or data Plasma Urea 7 - 18 mg/dL High Sep 16 nitrogen alert NOTIFICAT 2017 6:10 [Mass/vol ION AM ume] in RESULT Serum or Plasma Calcium 8.5 - mg/dL Low No Sep 16 [Mass/vol 10.1 informati 2017 6:10 ume] in on in AM Serum or source Plasma data Chloride 98 - 107 mmoL/L Normal No Sep 16 [Moles/vo informati 2017 6:10 lume] in on in AM Serum or source Plasma data Carbon 21.0 - mmoL/L Low No Sep 16 dioxide, 32.0 informati 2017 6:10 total on in AM [Moles/vo source lume] in data Serum or Plasma Creatinin 0.55 - mg/dL High No Sep 16 e 1.02 informati 2017 6:10 [Mass/vol on in AM ume] in source Serum or data Plasma Creatinin 50 - 200 ML/MIN Low No Sep 16 e renal informati 2016 6:10 clearance on in AM source predicted data by Cockcroft -Gault formula Estimated 59- ML/MIN Low alert REFERENCE Aug 28 RANGE: 2017 6:10 glomerula >60 AM r ML/MIN/1. filtratio 73 SQUARE n rate METERSIf (GF this patient is -A merican, then multiply theresult by 1.210. Globulin 1.3 - 3.2 gm/dL No No Sep 16 [Mass/vol informati informati 2017 6:10 ume] in on in on in AM Serum source source data data Glucose 74 - 106 mg/dL Normal No Sep 16 [Mass/vol informati 2016 6:10 ume] in on in AM Serum or source Plasma data Potassium 3.5 - 5.1 mmoL/L Normal No Sep 16 informati 2017 6:10 [Moles/vo on in AM lume] in source Serum or data Plasma Sodium 136 - 145 mmoL/L Low No Sep 16 [Moles/vo informati 2017 6:10 lume] in on in AM Serum or source Plasma data Aspartate 15 - 37 U/L High No Sep 16 informati 2016 6:10 aminotran on in AM sferase source [Enzymati data c activity/ volume] in Serum or Plasma Alanine 12 - 78 U/L Normal No Sep 16 aminotran informati 2016 6:10 sferase on in AM [Enzymati source c data activity/ volume] in Serum or Plasma Protein 6.4 - 8.2 gm/dL Low No Sep 16 [Mass/vol informati 2016 6:10 ume] in on in AM Serum or source Plasma data INR in Blood by Coagulation assay Observa Value Referen Units Interpr Notes Date tion ce etation Range IS PATIENT ON ANTICOAGULANTS? Y LIST ANTICOAGULANTS: COUMADIN PTT RESULTS MUST BE CALLED IF PT ON HEPARIN!!! Y INR in 0.9 - 1.1 No High No Sep 16 Blood by informati informati 2016 6:10 Coagulati on in on in AM on assay source source data data Prothromb 9.4 - SECONDS High No Sep 16 in time 11.8 informati 2016 6:10 (PT) in on in AM Platelet source poor data plasma by Coagulati on assay CBC W Auto Differential panel in Blood Observa Value Referen Units Interpr Notes Date tion ce etation Range Basophils 0 - 0.2 K/MM3 Normal No Sep 16 inform2016 6:10 [#/volume on in AM ] in source Blood by data Automated count Basophils 0.1 - 2.0 % Low No Sep 16 /100 informati 2016 6:10 leukocyte on in AM s in source Blood by data Automated count Eosinophi 0.0 - 0.4 K/mm3 Normal No Sep 16 ls informati 2016 6:10 [#/volume on in AM ] in source Blood by data Automated count Eosinophi 0.1 - % Normal No Sep 16 ls/100 12.0 informati 2016 6:10 leukocyte on in AM s in source Blood by data Automated count Granulocy 1.8 - 7.8 K/mm3 High No Sep 16 carrie informati 2016 6:10 [#/volume on in AM ] in source Blood by data Automated count Granulocy 37.0 - % High No Sep 16 carrie/100 80.0 informati 2016 6:10 leukocyte on in AM s in source Blood by data Automated count Hematocri 37.0 - % Low alert Sep 16 t [Volume 47.0 2016 6:10 CRITICAL AM Fraction] RESULTS of Blood RESU LTS CALLED TO: HERMANN 09/16/17 0655 KyaJaskaranAlexander baron Hemoglobi 12.2 - g/dL Low alert Sep 16 n 16.2 2016 6:10 [Mass/vol CRITICAL AM ume] in RESULTS Blood RESU LTS CALLED TO: 09/16/17 0655 KyaJaskaranAlexander baron Lymphocyt 0.7 - 4.5 K/mm3 Normal No Sep 16 es informati 2016 6:10 [#/volume on in AM ] in source Unspecifi data ed specimen by Automated count Lymphocyt 10 - 50.0 % Low No Sep 16 es informati 2016 6:10 [#/volume on in AM ] in source Unspecifi data ed specimen by Automated count Erythrocy 27 - 31.2 pg High No Sep 16 te mean informati 2016 6:10 corpuscul on in AM ar source hemoglobi data n [Entitic mass] Erythrocy 31.8 - g/dl Normal No Sep 16 te mean 35.4 informati 2016 6:10 corpuscul on in AM ar source hemoglobi data n concentra tion [Mass/vol ume] by Automated count Erythrocy 82.2 - fl High No Sep 16 te mean 97.8 informati 2016 6:10 corpuscul on in AM ar volume source [Entitic data volume] by Automated count Monocytes 0.1 - 1.0 K/mm3 Normal No Sep 16 informati 2016 6:10 [#/volume on in AM ] in source Blood by data Automated count Monocytes 1.7 - 9.3 % Normal No Sep 16 /100 informati 2017 6:10 leukocyte on in AM s in source Blood by data Automated count Platelet 7.4 - fl Normal No Sep 16 mean 10.4 informati 2016 6:10 volume on in AM [Entitic source volume] data in Blood by Automated count Platelets 142 - 424 K/mm3 Low alert Sep 16 NOTIFICAT 2016 6:10 [#/volume ION AM ] in RESULT Blood Erythrocy 4.2 - 5.4 M/mm3 Low No Sep 16 carrie informati 2016 6:10 [#/volume on in AM ] in source Amniotic data fluid Erythrocy 11.5 - % High No Sep 16 te 17.5 alert informati 2017 6:10 distribut on in AM ion width source [Entitic data volume] by Automated count Leukocyte 4.8 - K/MM3 No No Sep 16 s 10.8 informati informati 2017 6:10 [#/volume on in on in AM ] in source source Blood data data Blood type & Crossmatch panel in Blood Observa Value Referen Units Interpr Notes Date tion ce etation Range Hold? N Transfuse now? 2 UNITS NOW Major COMPAT No No No No Sep 16 crossma informa informa informa informa 2017 tch tion in tion in tion in tion in [interp source source source source retatio data data data data n] Major COMPAT No No No No Sep 16 crossma informa informa informa informa 2017 tch tion in tion in tion in tion in [interp source source source source retatio data data data data n] by Immedia te spin Blood type & Crossmatch panel in Blood Observa Value Referen Units Interpr Notes Date tion ce etation Range Hold? N Transfuse now? 2 UNITS NOW Major COMPAT No No No No Sep 16 crossma informa informa informa informa 2017 tch tion in tion in tion in tion in [interp source source source source retatio data data data data n] Major COMPAT No No No No Sep 16 crossma informa informa informa informa 2017 tch tion in tion in tion in tion in [interp source source source source retatio data data data data n] by Immedia te spin Hemoglobin & Hematocrit panel in Blood Observa Value Referen Units Interpr Notes Date tion ce etation Range COMMENTS TO JEWELRY [employer]DEL [employer]ER: ONE HR POST TRANSFUSION Hematocri 37.0 - % Low No Sep 15 t [Volume 47.0 informati 2017 on in 10:16 PM Fraction] source of Blood data Hemoglobi 12.2 - g/dL Low No Sep 15 n 16.2 informati 2016 [Mass/vol on in 10:16 PM ume] in source Blood data Blood product special preparation [Type] Observa Value Referen Units Interpr Notes Date ti ce etation Range Blood BLOOD No No No BLOOD Sep 15 product UNIT informa informa informa UNIT # 2017 RELEASE tion in tion in tion in : W0382 7:50 PM special source source source 17 data data data [id number] prepara RELEASE tion D [Type] 7 1950Spa rks,[place]on nO POSITIV E Cardiac enzymes Observa Value Referen Units Interpr Notes Date tion ce etation Range COMMENTS TO [employer]EL[employer]: run on blood in lab Creatine 0 - 4.0 U/L No No Sep 15 kinase.MB informati informati 2017 2:35 /Creatine on in on in PM source source kinase.to data data anuja [Ratio] in Serum or Plasma Creatine 0.0 - 3.6 ng/mL High Sep 15 kinase.MB alert 2016 2:35 CRITICAL PM [Mass/vol RESULTS ume] in Serum or RESU Plasma LTS CALLED TO: MARCELINO 09/15/17 1737 Chris,[place] nda Creatine 26 - 192 U/L High No Sep 15 kinase informati 2017 2:35 [Enzymati on in PM c source activity/ data volume] in Serum or Plasma Troponin 0.00 - ng/mL High 0.04 - Sep 15 I.cardiac 0.06 0.49 IS 2017 2:35 AN PM [Mass/vol INDETERMI ume] in NANT Serum or ZONEAnd Plasma can be consisten t with the following diseases: Trauma Criticall y ill patients Alberto >30% TBSACHF Hypothyro idism Amyloidos isHyperte nsion Myocardit is SepsisHyp otension Rhabdomyo lysis Vital exhaust.P ostop surgery Pulmonary embolism CVARenal failure Acute neurologi ashley disease Atrial fib. Blood product special preparation [Type] Observa Value Referen Units Interpr Notes Date ti ce etation Range Blood BLOOD No No No BLOOD Sep 15 product UNIT informa informa informa UNIT # 2017 RELEASE tion in ti in tion in : 2:35 PM special source source source [id number] data data data [id number] prepara 4 tion RELEASE [Type] D 7Cracra ftLuz Marina Blood type & Crossmatch panel in Blood Observa Value Referen Units Interpr Notes Date tion ce etation Range Hold? N Transfuse now? 2 UNITS NOW Major COMPAT No No No No Sep 15 crossma informa informa informa informa 2017 tch tion in tion in tion in tion in 2:35 PM [interp source source source source retatio data data data data n] Major COMPAT No No No No Sep 15 crossma informa informa informa informa 2017 tch tion in tion in tion in tion in 2:35 PM [interp source source source source retatio data data data data n] by Immedia te spin Blood type & Crossmatch panel in Blood Observa Value Referen Units Interpr Notes Date tion ce etation Range Hold? N Transfuse now? 2 UNITS NOW Blood NEGATIV NEGATIV No No No Sep 15 group E E informa informa informa 2016 antibod tion in tion in tion in 2:35 PM y source source source screen data data data [Presen ce] in Serum or Plasma Rh POSITIV No No No No Sep 15 [Type] E informa informa informa informa 2016 in tion in tion in tion in tion in 2:35 PM Blood source source source source data data data data ABO O No No No No Sep 15 group informa informa informa informa 2016 [Type] tion in tion in tion in tion in 2:35 PM in source source source source Blood data data data data Blood type & Crossmatch panel in Blood Observa Value Referen Units Interpr Notes Date tion ce etation Range Hold? N Transfuse now? 2 UNITS NOW Major COMPAT No No No No Sep 15 crossma informa informa informa informa 2017 tch tion in tion in tion in tion in 2:35 PM [interp source source source source retatio data data data data n] Major COMPAT No No No No Sep 15 crossma informa informa informa informa 2017 tch tion in tion in tion in tion in 2:35 PM [interp source source source source retatio data data data data n] by Immedia te spin Thyrotropin [Units/volume] in Serum or Plasma Observa Value Referen Units Interpr Notes Date tion ce etation Range Thyrotrop 0.358 - uIU/ml No No Sep 15 in 3.740 informati informati 2016 2:35 [Units/vo on in on in PM lume] in source source Serum or data data Plasma Digoxin [Mass/volume] in Serum or Plasma Observa Value Referen Units Interpr Notes Date tion ce etation Range Digoxin 1.15 - ng/mL Normal No Sep 15 [Mass/vol 2.56 informati 2016 2:35 ume] in on in PM Serum or source Plasma data Comprehensive metabolic 2000 panel in Serum or Plasma Observa Value Referen Units Interpr Notes Date ti ce etation Range Albumin/G 1.1 - 1.8 No Low No Sep 15 lobulin informati informati 2016 2:35 [Mass on in on in PM ratio] in source source Serum or data data Plasma Albumin 3.4 - 5.0 gm/dL Low No Sep 15 [Mass/vol informati 2016 2:35 ume] in on in PM Serum or source Plasma data Alkaline 46 - 116 U/L Normal No Sep 15 phosphata informati 2017 2:35 se on in PM [Enzymati source c data activity/ volume] in Serum or Plasma Bilirubin 0.2 - 1.0 mg/dL Normal No Sep 15 .total informati 2016 2:35 [Mass/vol on in PM ume] in source Serum or data Plasma Urea 7 - 18 mg/dL High Sep 15 nitrogen alert NOTIFICAT 2017 2:35 [Mass/vol ION PM ume] in RESULT Serum or 09/15 Plasma /17 1558 Chris,[place] nda Calcium 8.5 - mg/dL Low No Sep 15 [Mass/vol 10.1 informati 2017 2:35 ume] in on in PM Serum or source Plasma data Chloride 98 - 107 mmoL/L Normal No Sep 15 [Moles/vo informati 2016 2:35 lume] in on in PM Serum or source Plasma data Carbon 21.0 - mmoL/L Low No Sep 15 dioxide, 32.0 informati 2017 2:35 total on in PM [Moles/vo source lume] in data Serum or Plasma Creatinin 0.55 - mg/dL High No Sep 15 e 1.02 informati 2017 2:35 [Mass/vol on in PM ume] in source Serum or data Plasma Creatinin 50 - 200 ML/MIN Low No Sep 15 e renal informati 2016 2:35 clearance on in PM source predicted data by Cockcroft -Gault formula Estimated 59- ML/MIN Low alert REFERENCE Sep 15 RANGE: 2016 2:35 glomerula >60 PM r ML/MIN/1. filtratio 73 SQUARE n rate METERSIf (GF this patient is -A merican, then multiply theresult by 1.210. Globulin 1.3 - 3.2 gm/dL Normal No Sep 15 [Mass/vol informati 2016 2:35 ume] in on in PM Serum source data Glucose 74 - 106 mg/dL High No Sep 15 [Mass/vol informati 2016 2:35 ume] in on in PM Serum or source Plasma data Potassium 3.5 - 5.1 mmoL/L High No Sep 15 informati 2016 2:35 [Moles/vo on in PM lume] in source Serum or data Plasma Sodium 136 - 145 mmoL/L Low No Sep 15 [Moles/vo informati 2016 2:35 lume] in on in PM Serum or source Plasma data Aspartate 15 - 37 U/L High No Sep 15 informati 2016 2:35 aminotran on in PM sferase source [Enzymati data c activity/ volume] in Serum or Plasma Alanine 12 - 78 U/L Normal No Sep 15 aminotran ati 2016 2:35 sferase on in PM [Enzymati source c data activity/ volume] in Serum or Plasma Protein 6.4 - 8.2 gm/dL Low No Sep 15 [Mass/vol informati 2016 2:35 ume] in on in PM Serum or source Plasma data INR in Blood by Coagulation assay Observa Value Referen Units Interpr Notes Date tion ce etation Range IS PATIENT ON ANTICOAGULANTS? Y LIST ANTICOAGULANTS: COUMADIN INR in 0.9 - 1.1 No High Sep 15 Blood by informati NOTIFICAT 2016 2:35 Coagulati on in ION PM on assay source RESULT data INDIC ATION INR RANGETHER APY FOR DVT, PE, ATRIAL FIB; 2.0 - 3.0PROPHY LAXIS FOR VTETHERAP Y FOR MECHANICA L HEART 2.5 - 3.5VALVE; PREVENTIO N OF SYSTEMICE MBOLISM SECONDARY TO AMI Prothromb 9.4 - SECONDS High Sep 15 in time 11.8 NOTIFICAT 2017 2:35 (PT) in ION PM Platelet RESULT poor plasma by Coagulati on assay CBC W Auto Differential panel in Blood Observa Value Referen Units Interpr Notes Date tion ce etation Range Basophils 0 - 0.2 K/MM3 Normal No Sep 15 informati 2016 2:35 [#/volume on in PM ] in source Blood by data Automated count Basophils 0.1 - 2.0 % Normal No Sep 15 informati 2017 2:35 leukocyte on in PM s in source Blood by data Automated count Eosinophi 0.0 - 0.4 K/mm3 Normal No Sep 15 ls informati 2016 2:35 [#/volume on in PM ] in source Blood by data Automated count Eosinophi 0.1 - % Normal No Sep 15 ls/100 12.0 informati 2016 2:35 leukocyte on in PM s in source Blood by data Automated count Granulocy 1.8 - 7.8 K/mm3 High No Sep 15 carrie informati 2017 2:35 [#/volume on in PM ] in source Blood by data Automated count Granulocy 37.0 - % High No Sep 15 carrie/100 80.0 informati 2016 2:35 leukocyte on in PM s in source Blood by data Automated count Hematocri 37.0 - % Low alert Sep 15 t [Volume 47.0 2016 2:35 CRITICAL PM Fraction] RESULTS of Blood RESU LTS CALLED TO: MARCELINO 09/15/17 1454 Izabela Luz Marina Hemoglobi 12.2 - g/dL Low alert Sep 15 n 16.2 2016 2:35 [Mass/vol CRITICAL PM ume] in RESULTS Blood RESU LTS CALLED TO: MARCELINO 09/15/17 1453 CraLuz Marina sam Lymphocyt 0.7 - 4.5 K/mm3 Normal No Sep 15 es informati 2016 2:35 [#/volume on in PM ] in source Unspecifi data ed specimen by Automated count Lymphocyt 10 - 50.0 % Low No Sep 15 es informati 2016 2:35 [#/volume on in PM ] in source Unspecifi data ed specimen by Automated count Erythrocy 27 - 31.2 pg High No Sep 15 te mean informati 2016 2:35 corpuscul on in PM ar source hemoglobi data n [Entitic mass] Erythrocy 31.8 - g/dl Normal No Sep 15 te mean 35.4 informati 2016 2:35 corpuscul on in PM ar source hemoglobi data n concentra tion [Mass/vol ume] by Automated count Erythrocy 82.2 - fl High No Sep 15 te mean 97.8 informati 2016 2:35 corpuscul on in PM ar volume source [Entitic data volume] by Automated count Monocytes 0.1 - 1.0 K/mm3 Normal No Sep 15 informati 2016 2:35 [#/volume on in PM ] in source Blood by data Automated count Monocytes 1.7 - 9.3 % Normal No Aug 27 /100 informati 2016 2:35 leukocyte on in PM s in source Blood by data Automated count Platelet 7.4 - fl Normal No Sep 15 mean 10.4 informati 2016 2:35 volume on in PM [Entitic source volume] data in Blood by Automated count Platelets 142 - 424 K/mm3 Low No Sep 15 informati 2016 2:35 [#/volume on in PM ] in source Blood data Erythrocy 4.2 - 5.4 M/mm3 Low No Sep 15 carrie informati 2016 2:35 [#/volume on in PM ] in source Amniotic data fluid Erythrocy 11.5 - % High No Sep 15 te 17.5 informati 2016 2:35 distribut on in PM ion width source [Entitic data volume] by Automated count Leukocyte 4.8 - K/MM3 High No Sep 15 s 10.8 informati 2016 2:35 [#/volume on in PM ] in source Blood data Differential panel, method unspecified - Observa Value Referen Units Interpr Notes Date tion ce etation Range Anisocy 2+ No No No No Sep 15 tosis informa informa informa informa 2016 [Presen tion in tion in tion in tion in 2:35 PM ce] in source source source source Blood data data data data Neutrophi 0 - 8 % Normal No Sep 15 ls.band informati 2016 2:35 form/100 on in PM leukocyte source s in data Blood by Automated count LYMPH 8 10 - 50 % Low No Sep 15 informa 2016 tion in 2:35 PM source data Macrocy 2+ No No No No Sep 15 carrie informa informa informa informa 2016 [Presen tion in tion in tion in tion in 2:35 PM ce] in source source source source Blood data data data data Monocytes 2 - 9 % Normal No Sep 15 / informati 2016 2:35 leukocyte on in PM s in source Blood by data Automated count Platele MOD No No No No Sep 15 ts DECREAS informa informa informa informa 2016 [Presen E tion in tion in tion in tion in 2:35 PM ce] in source source source source Blood data data data data by Light microsc opy Poikilo 1+ No No No No Sep 15 cytosis informa informa informa informa 2016 tion in tion in tion in tion in 2:35 PM [Presen source source source source ce] in data data data data Blood by Light microsc opy Neutrophi 42 - 76 % High No Sep 15 ls informati 2016 2:35 [#/volume on in PM ] in source Blood by data Automated count Cells No #CELLS No No Sep 15 Counted informati informati informati 2016 2:35 Total [#] on in on in on in PM in Blood source source source data data data Urinalysis dipstick W Reflex Microscopic panel in Urine Observa Value Referen Units Interpr Notes Date tion ce etation Range Appeara CLOUDY CLEAR No No No April 19 nce of informa informa informa 2016 Urine tion in tion in tion in [...] No No April 19 E informa informa 2017 [Presen tion in tion [...] No No April 19 cytes informa informa 2016 [Presen tion in tion in 12:04 ce] in source source PM Urine data data sedimen t by Light microsc opy Specific 1.005 - No Normal No April 19 gravity 1.030 informati informati 2017 of Urine on in on in 12:04 [...] No April 19 carrie wbc/hpf informa informa 2017 [#/volu ; 100 tion in tion in 12:04 me] in wbc/hpf source source PM Urine ] data data Renal function 2000 panel in Serum or Plasma Observa Value Referen Units Interpr Notes Date tion ce etation Range Albumin 3.4 - 5.0 gm/dL Normal No April 19 [Mass/vol informati 2016 ume] [...] mmoL/L Low No April 19 dioxide, 32.0 informati 2016 total on in 12:04 PM [Moles/vo source lume] in data Serum or Plasma Creatinin 0.55 - mg/dL High No April 19 e 1.02 informati 2016 [Mass/vol on in 12:04 PM ume] in source Serum or data Plasma Estimated 59- ML/MIN Low REFERENCE April 19 RANGE: 2017 glomerula >60 12: PM r ML/MIN/1. filtratio 73 SQUARE n rate METERSIf (GF this patient is -A merican, then multiply theresult by 1.210. Glucose 74 - 106 mg/dL High No April 19 [Mass/vol informati 2016 ume] in on in 12:04 PM Serum or source Plasma data Potassium 3.5 - 5.1 mmoL/L Normal No April 19 inform2016 [Moles/vo on in 12:04 PM lume] in source Serum or data Plasma Sodium 136 - 145 mmoL/L Normal No April 19 [Moles/vo informati 2016 lume] in on in 12:04 PM Serum or source Plasma data Phosphate 2.4 - 4.9 mg/dL Normal No April 19 informati 2016 [Moles/vo on in 12:04 PM lume] in source Unspecifi data ed specimen CBC W Auto Differential panel in Blood Observa Value Referen Units Interpr Notes Date tion ce etation Range Basophils 0 - 0.2 K/MM3 Normal No April 19 inform2016 [#/volume on in 12:04 PM ] in source Blood by data Automated count Basophils 0.1 - 2.0 % Normal No April 19 / inform2016 leukocyte on in 12:04 PM s in source Blood by data Automated count Eosinophi 0.0 - 0.4 K/mm3 Normal No April 19 ls informati 2016 [#/volume on in 12:04 PM ] in source Blood by data Automated count Eosinophi 0.1 - % Normal No April 19 ls/100 12.0 inform2016 leukocyte on in 12:04 PM s in source Blood by data Automated count Granulocy 1.8 - 7.8 K/mm3 Normal No April 19 carrie inform2016 [#/volume on in 12:04 PM ] in source Blood by data Automated count Granulocy 37.0 - % Normal No April 19 carrie/100 80.0 2016 leukocyte on in 12:04 PM s in source Blood by data Automated count Hematocri 37.0 - % Low No April 19 t [Volume 47.0 ati 2016 on in 12:04 PM Fraction] source of Blood data Hemoglobi 12.2 - g/dL Low April 19 n 16.2 informati 2016 [Mass/vol on in 12:04 PM ume] in source Blood data Lymphocyt 0.7 - 4.5 K/mm3 Normal No April 19 es inform2016 [#/volume on in 12:04 PM ] [...] Automated count Erythrocy 82.2 - fl High April 19 te mean 97.8 2016 corpuscul on in 12:04 PM ar [...] Automated count Platelet 7.4 - fl Low No April 19 mean 10.4 2016 volume on in 12:04 PM [Entitic source volume] data in Blood by Automated count Platelets 142 - 424 K/mm3 Normal No April 19 inform2016 [#/volume on in 12:04 PM ] in source Blood data Erythrocy 4.2 - 5.4 M/mm3 Low No April 19 carrie inform2016 [#/volume on in 12:04 PM ] in source Amniotic data fluid Erythrocy 11.5 - % Normal April 19 te 17.5 2016 distribut on in 12:04 PM ion width source [Entitic data volume] by Automated count Leukocyte 4.8 - K/MM3 Normal April 19 s 10.8 2016 [#/volume on in 12:04 PM ] in source Blood data
--- OUTSIDE RECORDS SUMMARY | 2017-10-06 13:01 | External Medical Summary Rpt ---
[...] or T: JHOAN Plasma 09/23/17 --trough 0935 Chris,Merlin nda CBC W Auto Differential panel in [...] Date tion ce etation Range COMMENTS TO HUMAN RESOURCES ANALYST: USE AM LAB IF POSSIBLE Vancomyci 10.0 [...] source source 17 PM data data data [id number] prepara RELEASE tion D [Type] [id number] quevedo [id number] POSITIV E Blood product special preparation [Type] Observa Value Referen Units Interpr Notes Date ti ce etation Range Blood BLOOD No No No BLOOD Sep 16 product UNIT informa informa informa UNIT # 2017 RELEASE tion in tion in tion in : [id number] 9:55 AM special source source source 17 data data data [id number] prepara [id number] tion RELEASE [Type] D 7O'Maris [...] Date tion ce etation Range COMMENTS TO HUMAN RESOURCES ANALYST: ONE HR POST TRANSFUSION Hematocri 37.0 - [...] source source source 17 data data data [id number] prepara RELEASE tion D [Type] 7 1950Spa rks,Sheldon nO POSITIV E Cardiac enzymes Observa Value Referen Units Interpr Notes Date tion ce etation Range COMMENTS TO HUMAN RESOURCES ANALYST: run on blood in lab Creatine 0 [...] Plasma LTS CALLED TO: MARCELINO 09/15/17 1737 Chris,Merlin nda Creatine 26 - 192 U/L High [...] : 2:35 PM special source source source [id number] data data data [id number] prepara 4 tion RELEASE [Type] D 7Cracra [...] RESULT Serum or 09/15 Plasma /17 1558 Chris,Merlin nda Calcium 8.5 - mg/dL Low No [...]
[2017-10-06 13:19] LABS: NEUTROPHILS 82 % (42-76)
[2017-10-06 14:26] VITALS: BP 107/64
--- NOTE | 2017-10-07 12:27 | RADIOLOGY REPORT PS360 ---
CHEST-PORTABLE HISTORY: SEPSIS Patient Age: 82 years: Female Ordering Physician: Rosalba Almanza MD TECHNIQUE: AP portable chest upright COMPARISON 09/15/17 pCXR FINDINGS Less optimal inspiration today. The diaphragm is only down to the anterior fourth rib. This crowds markings at bases. There is mild bibasal atelectasis and scarring. I see no definitive pneumonia. The chest is rotated slightly to the right which also distorts the chest. Previous sternotomy. Disruption of the superior sternotomy wires again noted similar to prior studies . Mitral Valve prosthesis. CABG. Normal pulmonary vascularity. No CHF. No effusions Heart normal size. Kathi and mediastinal structures unremarkable on this portable study. .. Scoliosis noted with levoscoliosis thoracolumbar spine accentuated due to the rotation of the chest. Pronounced arthritic changes right shoulder with underlying long-standing rotator cuff tear sequela evident IMPRESSION: Limited portable chest with nothing significant acute findings.. Less optimal inspiration with mild bibasilar atelectasis...
== END 2017-10-06 14:28 | disposition short-term general hospital (02) ==
LOC: ER 12:12
PROVIDERS: Emergency Medicine
DX: A41.9 Sepsis, unspecified organism (principal); N18.4 Chronic kidney disease, stage 4 (severe); I48.0 Paroxysmal atrial fibrillation; E03.9 Hypothyroidism, unspecified; I50.9 Heart failure, unspecified; D64.9 Anemia, unspecified; I10 Essential (primary) hypertension; I25.10 Atherosclerotic heart disease of native coronary artery without angina pectoris; Z79.01 Long term (current) use of anticoagulants; L89.309 Pressure ulcer of unspecified buttock, unspecified stage
CPT/HCPCS: J3370